=== PATIENT | male | born 1970 | race African-American/Black ===

== ENCOUNTER 2016-10-30 23:32 | Emergency (ER) | payer MEDICAID, OTHER ==
[~2016-10-30] VITALS: Ht 177.8 cm; Wt 94.0 kg
[~2016-10-30 23:32] MED LIST: ADVA250A INH; ALBU6.7H INH; LOSA25TA PO; XARE20TA PO; ZITHTAB PO
[2016-10-31 02:14] VITALS: BP 157/81; PULSE 110; RESP 18; TEMP 98.4; O2SAT 96
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
== END 2016-10-31 07:22 | disposition home or self-care (01) ==
LOC: NEPA 23:32
DX: F14.129 Cocaine abuse with intoxication, unspecified (principal)
CPT/HCPCS: 99284

== ENCOUNTER 2016-11-04 01:03 | Inpatient (IN) | payer MEDICAID, OTHER ==
[2016-11-04] VITALS (16 sets, daily range): BP systolic 102–147; BP diastolic 50–94; PULSE 77–110; RESP 14–18; TEMP 97.7–98.2; O2SAT 95–99
[~2016-11-04] VITALS: Ht 175.3 cm; Wt 91.9 kg
[~2016-11-04 01:03] MED LIST changes: -ZITHTAB PO
[2016-11-04] MEDS ORDERED: PRED20 PO (01:42)
[2016-11-04] MEDS ORDERED: LORazepam 2 MG/ML VIAL IV PUSH ONE (02:45)
[2016-11-04] MEDS ORDERED: SODIUM CHLOR 0.9% 1000 ML INJ 1,000 ML IV ONE ×3 (02:45→03:45)
[2016-11-04] MEDS ORDERED: MORPHINE SULFATE 4 MG/ML INJ IV PUSH ONE (02:45)
[2016-11-04] MEDS ORDERED: ASPIRIN 325 MG TAB PO ONE (02:45)
[2016-11-04] MEDS ORDERED: SODIUM CHLORIDE 0.9% FLUSH 5 ML FLUSH IVF PRN (02:45)
--- NOTE | 2016-11-04 02:45 | PD ---
HPI Chief Complaint: Chest Pain Time Seen by Provider: 02:14 Travel History International Travel<30 days: No Contact w/Intl Traveler<30days: No Traveled to known affect area: No History of Present Illness HPI 46-year-old male arrives to the ER complaining of retrosternal chest pain for about 2-3 hours. Started after he snorted cocaine. He denies a history of myocardial infarction. Evidently he's had a mini stroke in the past. He complains of right lower extremity paresthesias. He smokes tobacco about one pack per day. He denies alcoholism. He states he has been abusing cocaine for the past couple days while going through a divorce with his . He states it' s been stressful for him. He denies a family history of coronary artery disease that he is aware of. He denies similar prior episodes of chest pain. He suffers with hypertension, hx pulmonary embolism, asthma and cocaine addiction. He reports strict compliance with Xarelto. PFSH Past Medical History Hx Anticoagulant Therapy: Yes (XARELTO) Arthritis: No Asthma: Yes Autoimmune Disease: No Blood Disorders: No Anxiety: No Depression: No Heart Rhythm Problems: No Cancer: No Cardiovascular Problems: Yes (HTN) High Cholesterol: No Chemotherapy: No Chest Pain: No Congestive Heart Failure: No COPD: No Cerebrovascular Accident: No Diabetes: No Diminished Hearing: No Endocrine: No Gastrointestinal Disorders: No GERD: No Genitourinary: No Headaches: No Hepatitis: No Hiatal Hernia: No Hypertension: Yes Immune Disorder: No Implanted Vascular Access Dvce: No Musculoskeletal: No Neurologic: No Psychiatric: No Reproductive: No Respiratory: Yes (ASTHMA, PE) Immunizations Current: Yes Migraines: No Radiation Therapy: No Seizures: No Sickle Cell Disease: No Sleep Apnea: No Thyroid Disease: No Ulcer: No Tetanus Vaccination: > 5 Years PNEUMOCCOCAL Vaccine (Year): 2 Past Surgical History Abdominal Surgery: Yes (umbilical hernia repair/ appendectomy) Appendectomy: Yes Cardiac Surgery: No Ear Surgery: No Eye Surgery: No Genitourinary Surgery: No Oral Surgery: No Pacemaker: No Thoracic Surgery: Yes (LUNG biopsy) Other Surgery: Yes (TENDON REPAIR LEFT MIDDLE FINGER) Social History Alcohol Use: No Tobacco Use: Yes (1 pk) Substance Use: Yes (COCAINE) Allergies-Medications (Allergen,Severity, Reaction): Coded Allergies: Darvocet-N 100 (Verified Allergy, Severe, Lip swelling, 11/04/16) Percocet (Verified Allergy, Severe, Itching, 11/04/16) Reported Meds & Prescriptions Reported Meds & Active Scripts Active Reported Prednisone 20 Mg Tab 20 Mg PO DAILY Xarelto (Rivaroxaban) 20 Mg Tab 20 Mg PO DAILY Losartan (Losartan Potassium) 25 Mg Tab 25 Mg PO DAILY Proventil Hfa 6.7 GM Inh (Albuterol Sulfate) 90 Mcg/Act Aer 1 Puff INH Q6H PRN Advair Diskus Inh (Fluticasone-Salmeterol Inh) 250-50 Mcg/Blist Aer 1 Puff INH BID Rinse mouth after use. Review of Systems Except as stated in HPI: all other systems reviewed are Neg General / Constitutional: No: Fever, Chills Cardiovascular: Positive: Chest Pain or Discomfort Psychiatric: Positive: Mood Disorder, Substance Abuse Physical Exam Narrative GENERAL: 46-year-old male no acute distress SKIN: Warm and dry. HEAD: Atraumatic. Normocephalic. EYES: Pupils equal and round. No scleral icterus. No injection or drainage. ENT: No nasal bleeding or discharge. Mucous membranes pink and moist. NECK: Trachea midline. No JVD. CARDIOVASCULAR: Regular rate and rhythm. No murmur appreciated. tenderness palpation about the sternum RESPIRATORY: No accessory muscle use. Clear to auscultation. Breath sounds equal bilaterally. GASTROINTESTINAL: Abdomen soft, non-tender, nondistended. Hepatic and splenic margins not palpable. MUSCULOSKELETAL: No obvious deformities. No clubbing. No cyanosis. No edema. NEUROLOGICAL: Awake and alert. No obvious cranial nerve deficits. Motor grossly within normal limits. Normal speech. PSYCHIATRIC: Appropriate mood and affect; insight and judgment normal. Data Data Last Documented VS Vital Signs Date Time Temp Pulse Resp B/P Pulse Ox O2 Delivery O2 Flow Rate FiO2 11/04/16 04:30 86 18 127/76 96 Room Air 11/04/16 01:38 98.2 VS reviewed Orders Electrocardiogram (11/04/16 02:35) Basic Metabolic Panel (Bmp) (11/04/16 02:35) Ckmb (Isoenzyme) Profile (11/04/16 02:35) Complete Blood Count With Diff (11/04/16 02:35) Magnesium (Mg) (11/04/16 02:35) Prothrombin Time / Inr (Pt) (11/04/16 02:35) Act Partial Throm Time (Ptt) (11/04/16 02:35) Troponin I (11/04/16 02:35) Chest, Single Ap (11/04/16 02:35) Ecg Monitoring (11/04/16 02:35) Bilateral Bp Monitoring (11/04/16 02:35) Iv Access Insert/Monitor (11/04/16 02:35) Oximetry (11/04/16 02:35) Oxygen Administration (11/04/16 02:35) Aspirin (Aspirin) (11/04/16 02:45) Morphine Inj (Morphine Inj) (11/04/16 02:45) Sodium Chloride 0.9% Flush (Ns Flush) (11/04/16 02:45) Lorazepam Inj (Ativan Inj) (11/04/16 02:45) Nitroglycerin Sl (Nitrostat Sl) (11/04/16 02:45) Sodium Chlor 0.9% 1000 Ml Inj (Ns 1000 M (11/04/16 02:45) CKMB (11/04/16 02:45) CKMB% (11/04/16 02:45) Sodium Chlor 0.9% 1000 Ml Inj (Ns 1000 M (11/04/16 03:45) Sodium Chlor 0.9% 1000 Ml Inj (Ns 1000 M (11/04/16 03:45) Admit Order (Ed Use Only) (11/04/16 04:28) Labs Laboratory Tests Test 11/04/16 02:45 White Blood Count 8.0 TH/MM3 Red Blood Count 4.69 MIL/MM3 Hemoglobin 16.0 GM/DL Hematocrit 44.6 % Mean Corpuscular Volume 95.1 FL Mean Corpuscular Hemoglobin 34.0 PG Mean Corpuscular Hemoglobin 35.8 % Concent Red Cell Distribution Width 13.1 % Platelet Count 313 TH/MM3 Mean Platelet Volume 7.1 FL Neutrophils (%) (Auto) 54.4 % Lymphocytes (%) (Auto) 34.1 % Monocytes (%) (Auto) 7.9 % Eosinophils (%) (Auto) 2.6 % Basophils (%) (Auto) 1.0 % Neutrophils # (Auto) 4.4 TH/MM3 Lymphocytes # (Auto) 2.7 TH/MM3 Monocytes # (Auto) 0.6 TH/MM3 Eosinophils # (Auto) 0.2 TH/MM3 Basophils # (Auto) 0.1 TH/MM3 CBC Comment DIFF FINAL Differential Comment Prothrombin Time 11.1 SEC Prothromb Time International 1.0 RATIO Ratio Activated Partial 26.4 SEC Thromboplast Time Sodium Level 137 MEQ/L Potassium Level 3.4 MEQ/L Chloride Level 103 MEQ/L Carbon Dioxide Level 21.0 MEQ/L Anion Gap 13 MEQ/L Blood Urea Nitrogen 15 MG/DL Creatinine 1.42 MG/DL Estimat Glomerular Filtration 64 ML/MIN Rate Random Glucose 70 MG/DL Calcium Level 8.6 MG/DL Magnesium Level 2.3 MG/DL Total Creatine Kinase 3379 U/L Creatine Kinase MB 4.1 NG/ML Creatine Kinase MB % 0.1 % Troponin I 0.08 NG/ML MDM Medical Decision Making Medical Screen Exam Complete: Yes Emergency Medical Condition: Yes Medical Record Reviewed: Yes Differential Diagnosis NSTEMI, unstable angina, coronary vasospasm, PE, PTX, aortic dissection, pericarditis, myocarditis, endocarditis, PNA, esophageal disease, aneurysm, musculoskeletal etiologies, anxiety, cocaine/sympathomimetic abuse Narrative Course CBC & BMP Diagram 11/04/16 02:45 Total creatinine 3379 Troponin 0.08 EKG reveals sinus rhythm of 98 ST changes in the precordial leads do not appear to be ischemic in nature Last 24 hours Impressions Chest X-Ray 11/04/16 0235 Signed Impressions: Service Date/Time: October 00:55 - CONCLUSION: No acute disease. Tom Haider MD 3 L saline ordered. The patient has rhabdomyolysis. Mild troponin elevation likely secondary to elevated creatinine kinase. Case discussed with Dr. Romero for the hospitalist service. Patient has been sleeping throughout his ER stay. Diagnosis Primary Impression: Cocaine use Additional Impressions: Rhabdomyolysis Qualified Code: M62.82 - Non-traumatic rhabdomyolysis Chest pain Qualified Code: R07.9 - Chest pain, unspecified type Admitting Information Admitting Physician Requests: Admit Jairo Dunn MD Nov 04, 2016 02:45
[2016-11-04] MEDS: NITROGLYCERIN 0.4 MG SL 25 TABS/BTL SL SCH ×3 (02:55→03:06)
[2016-11-04 02:56] LABS: AUTOMATED NEUTROPHIL # 4.4 TH/MM3 (1.8-7.7); BASOPHIL # 0.1 TH/MM3 (0-0.2); EOSINOPHIL # 0.2 TH/MM3 (0-0.4); EOSINOPHIL % 2.6 % (0.0-4.0); HEMATOCRIT 44.6 % (39.0-51.0); HEMO FLAGS DIFF FINAL; LYMPH % 34.1 % (9.0-44.0); LYMPHOCYTE # 2.7 TH/MM3 (1.0-4.8); MEAN CELL VOLUME 95.1 FL (80.0-100.0); MEAN CORPUSCULAR HGB CONC 35.8 % (32.0-36.0); MONO % 7.9 % (0.0-8.0); NEUT % 54.4 % (16.0-70.0); PLATELET COUNT 313 TH/MM3 (150-450); RED BLOOD COUNT 4.69 MIL/MM3 (4.50-5.90); RED CELL DISTRIBUTION WIDTH 13.1 % (11.6-17.2)
[2016-11-04 03:05] LABS: APTT (PATIENT) 26.4 SEC (24.3-30.1); PROTHROMBIN TIME - PATIENT 11.1 SEC (9.8-11.6)
[2016-11-04 03:09] LABS: MAGNESIUM 2.3 MG/DL (1.5-2.5); POTASSIUM 3.4 MEQ/L (3.5-5.1)
--- NOTE | 2016-11-04 03:17 | RADRPT ---
EXAM DATE/TIME: 11/04/2016 00:55 [facility] COMPARISON: CHEST SINGLE AP, August 02, 2016, 12:28. INDICATIONS : Chest pain. MEDICAL HISTORY : None. SURGICAL HISTORY : None. ENCOUNTER: Initial ACUITY: 1 day PAIN SCORE: 110 LOCATION: Bilateral chest FINDINGS: A single view of the chest demonstrates the lungs to be symmetrically aerated without evidence of mas s, infiltrate or effusion. The cardiomediastinal contours are unremarkable. Osseous structures are intact. CONCLUSION: No acute disease. Tom Haider MD on November 04, 2016 at 3:15 Board Certified Radiologist. This report was verified electronically.
[2016-11-04 03:35] LABS: CKMB 4.1 NG/ML (0.5-3.6)
[2016-11-04 05:54] LABS: AMPHETAMINE, URINE NEG (NEG); BARBITURATES, URINE NEG (NEG); COCAINE, URINE POS (NEG)
[2016-11-04] MEDS ORDERED: ALBUTEROL SULFATE 90 MCG/ACT HFA 8 GM INHALER INH PRN (07:30)
--- NOTE | 2016-11-04 07:40 | HHI.HP ---
[facility] Judy De La Garza MD Admission Diagnosis Rhabdo, CP, Cocaine Abuse Diagnoses: (1) Chest pain Diagnosis: Principal (2) Cocaine use Diagnosis: Principal Chief Complaint: chest pain Travel History International Travel<30 Days: No Contact w/Intl Traveler <30 Da: No Traveled to Known Affected Are: No History of Present Illness patient is a 46 y/o male with history of hypertension, chronic smoker with history of cocaine abuse, presented to ER with chest pain. he says that the pain started last night after he snored cocaine. pain was midsternal with no radiation and no association with nausea, vomiting, dizziness or sob. he says that his chest is tender to touch. he denies any fever or cough. Review of Systems Constitutional: DENIES: Fever, Weight loss, Chills, Night Sweats Eyes: DENIES: Blurred vision, Diplopia, Vision loss, Double Vision Ears, nose, mouth, throat: DENIES: Tinnitus, Vertigo, Throat pain, Epistaxis Respiratory: DENIES: Apneas, Cough, Snoring, Wheezing, Hemoptysis, Sputum production, Shortness of breath Cardiovascular: COMPLAINS OF: Chest pain, DENIES: Palpitations, Syncope, Dyspnea on Exertion, PND, Lower Extremity Edema, Orthopnea, Claudication Gastrointestinal: DENIES: Abdominal pain, Black stools, Bloody stools, Constipation, Diarrhea, Nausea, Vomiting, Difficulty Swallowing, Anorexia Genitourinary: DENIES: Urinary frequency, Urgency, Hematuria, Dysuria Musculoskeletal: DENIES: Joint pain, Muscle aches, Stiffness, Joint Swelling Integumentary: DENIES: Rash Neurologic: DENIES: Abnormal gait, Headache, Localized weakness, Paresthesias, Seizures, Speech Problems, Tremor, Poor Balance Psychiatric: DENIES: Anxiety, Confusion, Mood changes, Depression, Hallucinations, Agitation, Suicidal Ideation, Homicidal Ideation, Delusions Past Family Social History Past Medical History PE hypertension asthma Past Surgical History appendectomy Reported Medications losartan prednisone xarelto albuterol advair Allergies: Coded Allergies: Darvocet-N 100 (Verified Allergy, Severe, Lip swelling, 11/04/16) Percocet (Verified Allergy, Severe, Itching, 11/04/16) Active Ordered Medications Current Medications Aspirin (Aspirin) 325 mg ONCE ONCE PO Last administered on 11/04/16 02:55; Start 11/04/16 at 02:45; Stop 11/04/16 at 02:46; Status DC Morphine Sulfate (Morphine Inj) 4 mg ONCE ONCE IV PUSH Last administered on 03:35; Start 11/04/16 at 02:45; Stop 11/04/16 at 02:46; Status DC IV Flush (NS Flush) 2 ml UNSCH PRN IVF FLUSH AFTER USING IV ACCESS; Start at 02:45 Lorazepam (Ativan Inj) 1 mg ONCE ONCE IV PUSH Last administered on 11/04/16 02 :59; Start 11/04/16 at 02:45; Stop 11/04/16 at 02:46; Status DC Nitroglycerin 0.4 mg 0.4 mg Q5M SL Last administered on 11/04/16 03:06; Start 11/04/16 at 02:45; Stop 11/04/16 at 02:56; Status DC Sodium Chloride 1,000 ml @ 999 mls/hr BOLUS ONCE IV Last administered on 03:00; Start 11/04/16 at 02:45; Stop 11/04/16 at 03:45; Status DC Sodium Chloride 1,000 ml @ 999 mls/hr BOLUS ONCE IV Last administered on 04:07; Start 11/04/16 at 03:45; Stop 11/04/16 at 04:45; Status DC Sodium Chloride (NS 1000 ml Inj) 1,000 ml @ 999 mls/hr BOLUS ONCE IV Last administered on 11/04/16 04:07; Start 11/04/16 at 03:45; Stop 11/04/16 at 04:45; Status DC Social History smokes half a pack a day- snores cocaine- doesn't drink. Physical Exam Vital Signs Vital Signs Date Time Temp Pulse Resp B/P Pulse Ox O2 Delivery O2 Flow Rate FiO2 11/04/16 06:48 85 18 146/77 97 Room Air 11/04/16 05:52 84 18 135/71 98 Room Air 11/04/16 04:30 86 18 127/76 96 Room Air 11/04/16 03:35 98 18 146/86 99 Room Air 11/04/16 03:06 106 18 126/70 95 Room Air 11/04/16 03:01 110 18 126/71 95 Room Air 11/04/16 02:56 93 18 147/89 96 Room Air 11/04/16 02:26 92 18 145/94 97 Room Air 11/04/16 01:43 94 16 97 11/04/16 01:38 98.2 94 16 127/82 96 Physical Exam GENERAL: This is a well-nourished, well-developed patient, in no apparent distress. SKIN: No rashes, ecchymoses or lesions. Cool and dry. HEAD: Atraumatic. Normocephalic. No temporal or scalp tenderness. EYES: Pupils equal round and reactive. Extraocular motions intact. No scleral icterus. No injection or drainage. ENT: Nose without bleeding, purulent drainage or septal hematoma. Throat without erythema, tonsillar hypertrophy or exudate. Uvula midline. Airway patent. NECK: Trachea midline. No JVD or lymphadenopathy. Supple, nontender, no meningeal signs. CARDIOVASCULAR: Regular rate and rhythm without murmurs, gallops, or rubs. chest is tender to touch RESPIRATORY: Clear to auscultation. Breath sounds equal bilaterally. No wheezes , rales, or rhonchi. GASTROINTESTINAL: Abdomen soft, non-tender, nondistended. No hepato-splenomegaly , or palpable masses. No guarding. MUSCULOSKELETAL: Extremities without clubbing, cyanosis, or edema. No joint tenderness, effusion, or edema noted. No calf tenderness. Negative Homans sign bilaterally. NEUROLOGICAL: Awake and alert. Cranial nerves II through XII intact. Motor and sensory grossly within normal limits. Five out of 5 muscle strength in all muscle groups. Normal speech. Laboratory Laboratory Tests Test 11/04/16 11/04/16 02:45 05:20 White Blood Count 8.0 Red Blood Count 4.69 Hemoglobin 16.0 Hematocrit 44.6 Mean Corpuscular Volume 95.1 Mean Corpuscular Hemoglobin 34.0 Mean Corpuscular Hemoglobin 35.8 Concent Red Cell Distribution Width 13.1 Platelet Count 313 Mean Platelet Volume 7.1 Neutrophils (%) (Auto) 54.4 Lymphocytes (%) (Auto) 34.1 Monocytes (%) (Auto) 7.9 Eosinophils (%) (Auto) 2.6 Basophils (%) (Auto) 1.0 Neutrophils # (Auto) 4.4 Lymphocytes # (Auto) 2.7 Monocytes # (Auto) 0.6 Eosinophils # (Auto) 0.2 Basophils # (Auto) 0.1 CBC Comment DIFF FINAL Differential Comment Prothrombin Time 11.1 Prothromb Time International 1.0 Ratio Activated Partial 26.4 Thromboplast Time Sodium Level 137 Potassium Level 3.4 Chloride Level 103 Carbon Dioxide Level 21.0 Anion Gap 13 Blood Urea Nitrogen 15 Creatinine 1.42 Estimat Glomerular Filtration 64 Rate Random Glucose 70 Calcium Level 8.6 Magnesium Level 2.3 Total Creatine Kinase 3379 Creatine Kinase MB 4.1 Creatine Kinase MB % 0.1 Troponin I 0.08 Urine Opiates Screen NEG Urine Barbiturates Screen NEG Urine Amphetamines Screen NEG Urine Benzodiazepines Screen NEG Urine Cocaine Screen POS Urine Cannabinoids Screen NEG Result Diagram: 11/04/1624411/04/16244 Imaging Last Impressions Chest X-Ray 11/04/16234 Signed Impressions: Service Date/Time: October 00:55 - CONCLUSION: No acute disease. Tom Haider MD EKG; sinus rhythm Assessment and Plan Assessment and Plan A/P - chest pain with cocaine abuse received a dose of aspirin in ER- will continue with aspirin and trend the enzymes -rhabdomyolysis due to cocaine continue with aggressive IV hydration- monitor CPK level and renal function -acute kidney injury; continue IV fluid- monitor renal function -hypertension; resume losartan- will monitor -history of PE and asthma; resume home meds -DVT prophylaxis; on xarelto Discussed Condition With the patient. Physician Certification 2 Midnight Certification Type: Admission for Inpatient Services Order for Inpatient Services The services are ordered in accordance with Medicare regulations or non- Medicare payer requirements, as applicable. In the case of services not specified as inpatient-only, they are appropriately provided as inpatient services in accordance with the 2-midnight benchmark. Estimated LOS (days): 2 days is the estimated time the patient will need to remain in the hospital, assuming treatment plan goals are met and no additional complications. Post-Hospital Plan: Home Problem Qualifiers (1) Chest pain: Qualified Code: R07.9 - Chest pain, unspecified type Kenna Aaron MD Nov 04, 2016 07:40
[2016-11-04] MEDS ORDERED: POTASSIUM CHLORIDE 20 MEQ CONTROLLED RELEASE TAB PO ONE (07:45)
--- NOTE | 2016-11-04 08:08 | EKG ---
Date Performed: 11/04/2016 Time Performed: 01:51:05 PTAGE: 46 years EKG: Sinus rhythm NONSPECIFIC T-WAVE ABNORMALITY BORDERLINE ECG NO SIGNIFICANT CHANGE FROM PRIOR ELECTROCARDIOGRAM. PREVIOUS TRACING : 06/07/2016 07.23 DOCTOR: Sampson Vogt Interpretating Date/Time 11/04/2016 08:07:42
[2016-11-04] MEDS: RIVAROXABAN 20 MG TAB PO SCH (08:56)
[2016-11-04] MEDS: LOSARTAN 25 MG TAB PO SCH (08:56)
[2016-11-04] MEDS: predniSONE 20 MG TAB PO SCH (08:56)
[2016-11-04] MEDS: SODIUM CHLOR 0.9% 1000 ML INJ 1,000 ML IV SCH ×3 (08:57→23:30)
[2016-11-04] MEDS: BUDESONIDE-FORMOTEROL 160/4.5 MCG INHALER INH SCH ×2 (10:08→22:01)
--- NOTE | 2016-11-04 13:40 | EKG ---
Date Performed: 11/04/2016 Time Performed: 09:17:23 PTAGE: 46 years EKG: Sinus rhythm ARM LEADS REVERSED ATYPICAL ECG COMPARED TO PRIOR ELECTROCARDIOGRAM, Limb leads are probably reverse d and I would repeat electrocardiogram. DOCTOR: Sampson Vogt Interpretating Date/Time 11/04/2016 13:38:38
[2016-11-04] MEDS: ACETAMINOPHEN/HYDROcodone 325 MG/5 MG TAB PO PRN ×2 (16:12→22:28)
[2016-11-05] VITALS (8 sets, daily range): BP systolic 113–128; BP diastolic 60–76; PULSE 68–81; RESP 16–20; TEMP 97.3–98; O2SAT 94–99
[2016-11-05] MEDS: ACETAMINOPHEN/HYDROcodone 325 MG/5 MG TAB PO PRN ×3 (06:58→20:01)
[2016-11-05 07:05] LABS: BICARBONATE 25.2 MEQ/L (21.0-32.0); POTASSIUM 3.6 MEQ/L (3.5-5.1)
[2016-11-05 07:37] LABS: CKMB 2.4 NG/ML (0.5-3.6)
[2016-11-05] MEDS: LOSARTAN 25 MG TAB PO SCH (09:25)
[2016-11-05] MEDS: predniSONE 20 MG TAB PO SCH (09:25)
[2016-11-05] MEDS: RIVAROXABAN 20 MG TAB PO SCH (09:25)
[2016-11-05] MEDS: BUDESONIDE-FORMOTEROL 160/4.5 MCG INHALER INH SCH ×2 (09:25→20:01)
[2016-11-05] MEDS: ASPIRIN EC 81 MG TABEC PO SCH (09:25)
[2016-11-05] MEDS ORDERED: MAGNESIUM HYDROXIDE SUSP 30 ML CUP PO PRN (10:15)
[2016-11-05] MEDS ORDERED: DOCUSATE SODIUM 50 MG/SENNA 8.6 MG TAB PO PRN (10:15)
[2016-11-05] MEDS ORDERED: ACETAMINOPHEN 325 MG TAB PO PRN (10:15)
[2016-11-05] MEDS ORDERED: ONDANSETRON HCL 4 MG/2 ML VIAL IV PRN (10:15)
[2016-11-05] MEDS ORDERED: DOCUSATE SODIUM 100 MG CAP PO PRN (11:00)
[2016-11-05] MEDS ORDERED: ALUMINUM/MAGNESIUM/SIMETH 30 ML CUP PO PRN (12:00)
[2016-11-05] MEDS: 1/2 NS + KCL 20 MEQ INJ 1,000 ML IV SCH ×2 (12:13→20:02)
[2016-11-05] MEDS ORDERED: CALCIUM CARBONATE 500 MG CHEWABLE TAB CHEW PRN (13:00)
--- NOTE | 2016-11-05 17:45 | HHI.PR ---
Subjective Remarks Follow-up rhabdomyolysis. Complains of intermittent pleuritic sharp sternal pain 6/10 lasting for 15-20 minutes when he moves , improves when he raises BUE. No radiation of pain, shortness of breath, nausea, palpitations and diaphoresis. Counseled regarding cocaine abuse. No recent URI. Discussed with RN Objective Vitals Vital Signs Date Time Temp Pulse Resp B/P Pulse Ox O2 Delivery O2 Flow Rate FiO2 11/05/16 09:50 81 11/05/16 09:50 Room Air 11/05/16 08:00 97.8 75 20 115/65 95 11/05/16 04:00 97.5 69 18 122/72 98 11/05/16 00:00 97.3 68 18 113/60 94 11/04/16 21:00 Room Air 11/04/16 20:12 86 11/04/16 20:00 97.7 77 18 109/55 96 I/O 11/04/16 11/04/16 11/04/16 11/05/16 11/05/16 11/05/16 07:00 15:00 23:00 07:00 15:00 23:00 Intake Total 480 ml 360 ml Balance 480 ml 360 ml Intake Oral 480 ml 360 ml # Voids 2 2 Result Diagram: 11/04/16 0245 11/05/16 0614 Imaging Last Impressions Chest X-Ray 11/04/16 0235 Signed Impressions: Service Date/Time: October 00:55 - CONCLUSION: No acute disease. Tom Haider MD Objective Remarks GENERAL: This is a well-nourished, well-developed patient, in no apparent distress. SKIN: No rashes, ecchymoses or lesions. Cool and dry. HEAD: Atraumatic. Normocephalic. No temporal or scalp tenderness. EYES: Pupils equal round and reactive. Extraocular motions intact. No scleral icterus. No injection or drainage. ENT: Nose without bleeding, purulent drainage or septal hematoma. Throat without erythema, tonsillar hypertrophy or exudate. Uvula midline. Airway patent. NECK: Trachea midline. No JVD or lymphadenopathy. Supple, nontender, no meningeal signs. CARDIOVASCULAR: Regular rate and rhythm without murmurs, gallops, or rubs. chest is tender to touch RESPIRATORY: Clear to auscultation. Breath sounds equal bilaterally. No wheezes , rales, or rhonchi. GASTROINTESTINAL: Abdomen soft, non-tender, nondistended. No guarding. MUSCULOSKELETAL: Extremities without clubbing, cyanosis, or edema. No joint tenderness, effusion, or edema noted. No calf tenderness. Negative Homans sign bilaterally. NEUROLOGICAL: Awake and alert. Cranial nerves II through XII intact. Motor and sensory grossly within normal limits. Five out of 5 muscle strength in all muscle groups. Normal speech. Procedures none A/P Problem List: (1) Chest pain ICD Code: R07.9 Status: Acute (2) Cocaine use ICD Code: F14.10 Status: Acute Assessment and Plan - chest pain with cocaine abuse. Pain could also be musculoskeletal received a dose of aspirin in ER- will continue with aspirin and trend the enzymes. Mild troponin elevation tender to Abuse. Negative nuclear study in August 2015 -rhabdomyolysis due to cocaine continue with aggressive IV hydration- monitor CPK level and renal function -acute kidney injury; continue IV fluid- monitor renal function. Improving -Mild AST elevation secondary to rhabdomyolysis. -hypertension; resume losartan- will monitor -history of PE and asthma; resume home meds -DVT prophylaxis; on xarelto Discharge Planning Possible discharge in the morning if CPK levels on downward trend Problem Qualifiers (1) Chest pain: Qualified Code: R07.9 - Chest pain, unspecified type John Burrell MD Nov 05, 2016 17:45
[2016-11-05] MEDS ORDERED: HYDR-3516 PO (17:47)
--- NOTE | 2016-11-05 17:48 | HHI.DCPOC ---
Discharge Care Plan Diagnosis: (1) Cocaine use (2) Rhabdomyolysis Your Health Problems Are: Difficulty with ADL Exercise Tolerance Goals to Promote Your Health * To prevent worsening of your condition and complications * To maintain your health at the optimal level Directions to Meet Your Goals Take your medications as prescribed Follow your dietary instruction Follow activity as directed Keep your appointments as scheduled Take your immunizations and boosters as scheduled If your symptoms worsen call your PCP, if no PCP go to Urgent Care Center or Emergency Room Smoking is Dangerous to Your Health. Avoid second hand smoke Call the 24-hour hour crisis hotline for domestic abuse at John Burrell MD Nov 05, 2016 17:48
[2016-11-06] VITALS (7 sets, daily range): BP systolic 109–150; BP diastolic 55–89; PULSE 67–93; RESP 16–20; TEMP 97.3–97.6; O2SAT 94–99
[2016-11-06 08:16] LABS: MAGNESIUM 2.1 MG/DL (1.5-2.5); POTASSIUM 3.8 MEQ/L (3.5-5.1)
[2016-11-06 08:31] LABS: CKMB 1.3 NG/ML (0.5-3.6)
[2016-11-06] MEDS: ASPIRIN EC 81 MG TABEC PO SCH (09:04)
[2016-11-06] MEDS: LOSARTAN 25 MG TAB PO SCH (09:04)
[2016-11-06] MEDS: RIVAROXABAN 20 MG TAB PO SCH (09:04)
[2016-11-06] MEDS: predniSONE 20 MG TAB PO SCH (09:04)
--- NOTE | 2016-11-06 10:37 | HHI.PR ---
Subjective Remarks Follow-up rhabdomyolysis. He has generalized soreness otherwise doing okay. Also has mild shortness of breath secondary to asthma. Discussed with RN Objective Vitals Vital Signs Date Time Temp Pulse Resp B/P Pulse Ox O2 Delivery O2 Flow Rate FiO2 11/06/16 08:00 97.4 67 20 122/77 96 11/06/16 04:00 97.6 93 20 118/66 96 11/06/16 00:11 94 11/06/16 00:00 97.3 85 16 109/55 96 11/05/16 20:04 81 11/05/16 20:00 98.0 76 16 121/73 97 11/05/16 19:45 Room Air 11/05/16 16:00 97.5 79 20 123/69 99 11/05/16 12:00 97.6 75 20 128/76 95 I/O 11/05/16 11/05/16 11/05/16 11/06/16 11/06/16 11/06/16 07:00 15:00 23:00 07:00 15:00 23:00 Intake Total 360 ml 720 ml 240 ml Balance 360 ml 720 ml 240 ml Intake Oral 360 ml 720 ml 240 ml # Voids 2 4 6 # Bowel Movements 1 1 Result Diagram: 11/04/16 0245 11/06/16 0705 Objective Remarks GENERAL: This is a well-nourished, well-developed patient, in no apparent distress. SKIN: No rashes, ecchymoses or lesions. Cool and dry. HEAD: Atraumatic. Normocephalic. No temporal or scalp tenderness. EYES: Pupils equal round and reactive. Extraocular motions intact. No scleral icterus. No injection or drainage. ENT: Nose without bleeding, purulent drainage or septal hematoma. Throat without erythema, tonsillar hypertrophy or exudate. Uvula midline. Airway patent. NECK: Trachea midline. No JVD or lymphadenopathy. Supple, nontender, no meningeal signs. CARDIOVASCULAR: Regular rate and rhythm without murmurs, gallops, or rubs. chest is tender to touch RESPIRATORY: Clear to auscultation. Breath sounds equal bilaterally. No rales, or rhonchi. Mild expiratory wheezes GASTROINTESTINAL: Abdomen soft, non-tender, nondistended. No guarding. MUSCULOSKELETAL: Extremities without clubbing, cyanosis, or edema. No joint tenderness, effusion, or edema noted. No calf tenderness. Negative Homans sign bilaterally. NEUROLOGICAL: Awake and alert. Cranial nerves II through XII intact. Motor and sensory grossly within normal limits. Five out of 5 muscle strength in all muscle groups. Normal speech. Procedures none A/P Problem List: (1) Chest pain ICD Code: R07.9 Status: Acute (2) Cocaine use ICD Code: F14.10 Status: Acute Assessment and Plan - chest pain with cocaine abuse. Pain could also be musculoskeletal received a dose of aspirin in ER- will continue with aspirin and trend the enzymes. Mild troponin elevation secondary to cocaine Abuse. Negative nuclear study in August 2015 -rhabdomyolysis due to cocaine continue with aggressive IV hydration- monitor CPK level and renal function. Improving -acute kidney injury; continue IV fluid- monitor renal function. Improving -Mild AST elevation secondary to rhabdomyolysis. -hypertension; resume losartan- will monitor -history of PE and asthma; resume home meds he is on chronic prednisone therapy. Patient with mild exacerbation continue nebulization and steroids -DVT prophylaxis; on xarelto history of PE Discharge Planning She will be discharged later today if his wheezing improves Problem Qualifiers (1) Chest pain: Qualified Code: R07.9 - Chest pain, unspecified type John Burrell MD Nov 06, 2016 10:37
--- NOTE | 2016-11-06 10:38 | HHI.DS ---
Discharge Summary Admission Date Nov 04, 2016 at 04:30 Discharge Date: Nov 06, 2016 Admitting Diagnosis Rhabdo, CP, Cocaine Abuse (1) Chest pain ICD Code: R07.9 Diagnosis: Principal (2) Cocaine use ICD Code: F14.10 Diagnosis: Principal Procedures none Brief History - From Admission patient is a 46 y/o male with history of hypertension, chronic smoker with history of cocaine abuse, presented to ER with chest pain. he says that the pain started last night after he snored cocaine. pain was midsternal with no radiation and no association with nausea, vomiting, dizziness or sob. he says that his chest is tender to touch. he denies any fever or cough. CBC/BMP: 11/04/16 0245 11/06/16 0705 Significant Findings Laboratory Tests Test 11/04/16 11/04/16 11/04/16 11/04/16 02:45 05:20 10:32 14:24 Potassium Level 3.4 MEQ/L (3.5-5.1) Creatinine 1.42 MG/DL (0.60-1.30) Estimat Glomerular Filtration 64 ML/MIN (>89) Rate Random Glucose 70 MG/DL (74-106) Total Creatine Kinase 3379 U/L (39-308) Creatine Kinase MB 4.1 NG/ML (0.5-3.6) Troponin I 0.08 NG/ML 0.08 NG/ML 0.09 NG/ML (0.02-0.05) (0.02-0.05) (0.02-0.05) Urine Cocaine Screen POS (NEG) Test 11/05/16 11/06/16 06:14 07:05 Chloride Level 110 MEQ/L 108 MEQ/L (98-107) (98-107) Estimat Glomerular Filtration 83 ML/MIN (>89) 74 ML/MIN (>89) Rate Calcium Level 8.4 MG/DL (8.5-10.1) Total Creatine Kinase 1028 U/L 451 U/L (39-308) (39-308) Random Glucose 72 MG/DL (74-106) Imaging Last Impressions Chest X-Ray 11/04/16 0235 Signed Impressions: Service Date/Time: October 00:55 - CONCLUSION: No acute disease. Tom Haider MD PE at Discharge GENERAL: This is a well-nourished, well-developed patient, in no apparent distress. SKIN: No rashes, ecchymoses or lesions. Cool and dry. HEAD: Atraumatic. Normocephalic. No temporal or scalp tenderness. EYES: Pupils equal round and reactive. Extraocular motions intact. No scleral icterus. No injection or drainage. ENT: Nose without bleeding, purulent drainage or septal hematoma. Throat without erythema, tonsillar hypertrophy or exudate. Uvula midline. Airway patent. NECK: Trachea midline. No JVD or lymphadenopathy. Supple, nontender, no meningeal signs. CARDIOVASCULAR: Regular rate and rhythm without murmurs, gallops, or rubs. chest is tender to touch RESPIRATORY: Clear to auscultation. Breath sounds equal bilaterally. No rales, or rhonchi. Mild expiratory wheezes GASTROINTESTINAL: Abdomen soft, non-tender, nondistended. No guarding. MUSCULOSKELETAL: Extremities without clubbing, cyanosis, or edema. No joint tenderness, effusion, or edema noted. No calf tenderness. Negative Homans sign bilaterally. NEUROLOGICAL: Awake and alert. Cranial nerves II through XII intact. Motor and sensory grossly within normal limits. Five out of 5 muscle strength in all muscle groups. Normal speech. Hospital Course - chest pain with cocaine abuse. Pain could also be musculoskeletal received a dose of aspirin in ER- will continue with aspirin and trend the enzymes. Mild troponin elevation secondary to cocaine Abuse. Negative nuclear study in August 2015. Will not start nsaid patient already on Xarelto. Continue Lortab counselled regarding narcotics -rhabdomyolysis due to cocaine continue with aggressive IV hydration- monitor CPK level and renal function. Improving -acute kidney injury; continue IV fluid- monitor renal function. Improving -Mild AST elevation secondary to rhabdomyolysis. -hypertension; resume losartan- will monitor -history of PE and asthma; resume home meds he is on chronic prednisone therapy. Patient with mild exacerbation continue nebulization and steroids -DVT prophylaxis; on xarelto history of PE Pt Condition on Discharge: Stable Discharge Disposition: Discharge Home Discharge Time: <= 30 minutes Discharge Instructions DIET: Follow Instructions for: Heart Healthy Diet Activities you can perform: Regular-No Restrictions Activities to Avoid: Driving Follow up Referrals: PCP Follow-up - 1 Week New Medications: Hydrocodone-Acetaminophen (Hydrocodone-Acetaminophen) 5-325 mg Tab 1 TAB PO Q6H PRN PAIN >5 #20 TAB Continued Medications: Albuterol 6.7 GM Inh (Proventil Hfa 6.7 GM Inh) 90 Mcg/Act Aer 1 PUFF INH Q6H PRN SHORTNESS OF BREATH #1 Ref 0 INHALER Fluticasone-Salmeterol Inh (Advair Diskus Inh) 250-50 Mcg/Blist Aer 1 PUFF INH BID Rinse mouth after use. #1 Ref 0 INHALER Losartan (Losartan) 25 Mg Tab 25 MG PO DAILY Blood Pressure Management #30 Ref 0 TAB Prednisone (Prednisone) 20 Mg Tab 20 MG PO DAILY Ref 0 TAB Rivaroxaban (Xarelto) 20 Mg Tab 20 MG PO DAILY Blood Clot Prevention Ref 0 TAB John Burrell MD Nov 06, 2016 10:38
[2016-11-06] MEDS: ACETAMINOPHEN/HYDROcodone 325 MG/5 MG TAB PO PRN (15:04)
== END 2016-11-06 19:10 | disposition home or self-care (01) | DRG 313 ==
LOC: NEPE 01:03 → NEDA 04:30 → NEDH 09:46 → NEDA 12:28 → N04B 15:04
PROVIDERS: ADMIT Internal Medicine; ATTEND Internal Medicine
DX: R07.9 Chest pain, unspecified (principal); N17.9 Acute kidney failure, unspecified; M62.82 Rhabdomyolysis; F14.10 Cocaine abuse, uncomplicated; I10 Essential (primary) hypertension; J45.909 Unspecified asthma, uncomplicated; F17.210 Nicotine dependence, cigarettes, uncomplicated; Z79.52 Long term (current) use of systemic steroids; Z86.711 Personal history of pulmonary embolism; Z86.73 Personal history of transient ischemic attack (TIA), and cerebral infarction without residual deficits
CPT/HCPCS: 71010; 76937; 80048; 80307; 82550; 82552; 83735; 84484; 85025; 85610; 85652; 85730; 93005; 96361; 96374; 96375; J2060; J2270; J7030; J7512

== ENCOUNTER 2016-11-21 19:38 | Emergency (ER) | payer MEDICAID ==
[~2016-11-21] VITALS: Ht 175.3 cm; Wt 95.6 kg
[~2016-11-21 19:38] MED LIST changes: +HYDR-3516 PO; +PRED20 PO
[2016-11-21 19:43] VITALS: BP 158/104; PULSE 106; RESP 16; TEMP 98.2; O2SAT 97
--- NOTE | 2016-11-21 19:52 | PD ---
HPI Chief Complaint: Syncope/Near-Syncope Time Seen by Provider: 19:52 Travel History International Travel<30 days: No Contact w/Intl Traveler<30days: No Traveled to known affect area: No History of Present Illness HPI 38-year-old male with PMH of cocaine abuse ON XARELTO presents to the ED via EMS for evaluation after syncopal episode and fall. Patient states he was snorting cocaine just before the episode. He endorses loss of consciousness. On presentation he complains of 7/10 posterior headache. Endorses nausea and a single episode of vomiting. Denies vision changes, dizziness, pain with ocular movements, neck pain, chest pain, palpitations, abdominal pain, numbness, tingling, weakness, limitations range of motion of the lower extremities. Patient states he's been out of Xarelto for the last 3 days. Patient states that he used "a 1/4 ounce" of cocaine today. He denies SI, states that he is trying "to forget about my divorce." PFSH Past Medical History Hx Anticoagulant Therapy: Yes (XARELTO) Arthritis: No Asthma: Yes Autoimmune Disease: No Blood Disorders: No Anxiety: No Depression: No Heart Rhythm Problems: No Cancer: No Cardiovascular Problems: Yes ("HOLE IN HEART") High Cholesterol: No Chemotherapy: No Chest Pain: No Congestive Heart Failure: No COPD: No Cerebrovascular Accident: No Diabetes: No Diminished Hearing: No Endocrine: No Gastrointestinal Disorders: No GERD: No Genitourinary: No Headaches: No Hepatitis: No Hiatal Hernia: No Hypertension: Yes Immune Disorder: No Implanted Vascular Access Dvce: No Musculoskeletal: No Neurologic: No Psychiatric: No Reproductive: No Respiratory: Yes (ASTHMA ) Immunizations Current: Yes Migraines: No Radiation Therapy: No Seizures: No Sickle Cell Disease: No Sleep Apnea: No Thyroid Disease: No Ulcer: No PNEUMOCCOCAL Vaccine (Year): 2 Past Surgical History Abdominal Surgery: Yes (umbilical hernia repair/ appendectomy) Appendectomy: Yes Cardiac Surgery: No Ear Surgery: No Eye Surgery: No Genitourinary Surgery: No Oral Surgery: No Pacemaker: No Thoracic Surgery: Yes (LUNG biopsy) Other Surgery: Yes (TENDON REPAIR LEFT MIDDLE FINGER) Social History Alcohol Use: No (RARELY) Tobacco Use: Yes (1 pk) Substance Use: Yes ( COCAINE ) Allergies-Medications (Allergen,Severity, Reaction): Coded Allergies: Darvocet-N 100 (Verified Allergy, Severe, Lip swelling, 11/21/16) Percocet (Verified Allergy, Severe, Itching, 11/21/16) Reported Meds & Prescriptions Reported Meds & Active Scripts Active Xarelto (Rivaroxaban) 20 Mg Tab 20 Mg PO DAILY Reported Prednisone 20 Mg Tab 20 Mg PO DAILY Xarelto (Rivaroxaban) 20 Mg Tab 20 Mg PO DAILY Losartan (Losartan Potassium) 25 Mg Tab 25 Mg PO DAILY Proventil Hfa 6.7 GM Inh (Albuterol Sulfate) 90 Mcg/Act Aer 1 Puff INH Q6H PRN Advair Diskus Inh (Fluticasone-Salmeterol Inh) 250-50 Mcg/Blist Aer 1 Puff INH BID Rinse mouth after use. Review of Systems Except as stated in HPI: all other systems reviewed are Neg Physical Exam Narrative GENERAL: Well-nourished, well-developed black male, alert, oriented, in no acute distress. SKIN: Warm and dry. HEAD: Normocephalic. Atraumatic. No tenderness to palpation of the skull. No bony step-offs. EYES: No scleral icterus. No injection or drainage. PERRLA. EOMI. NECK: Supple, trachea midline. No JVD or lymphadenopathy. No midline tenderness to palpation. No limitations to range of motion. CARDIOVASCULAR: Regular rate and rhythm without murmurs, gallops, or rubs. 2+ DP and radial pulses bilaterally. RESPIRATORY: Breath sounds clear and equal bilaterally. No accessory muscle use. GASTROINTESTINAL: Abdomen soft, non-tender, nondistended. No MUSCULOSKELETAL: No cyanosis, or edema. BACK: Nontender without obvious deformity. No CVA tenderness. Data Data Last Documented VS Vital Signs Date Time Temp Pulse Resp B/P Pulse Ox O2 Delivery O2 Flow Rate FiO2 11/21/16 22:41 98.1 87 18 116/77 100 11/21/16 21:40 Room Air Orders Electrocardiogram (11/21/16 19:50) Complete Blood Count With Diff (11/21/16 19:50) Comprehensive Metabolic Panel (11/21/16 19:50) Creatine Kinase (Cpk) (11/21/16 19:50) Drug Screen, Random Urine (11/21/16 19:50) Troponin I (11/21/16 19:50) Urinalysis - C+S If Indicated (11/21/16 19:50) Ct Brain W/O Iv Contrast(Rout) (11/21/16 19:50) Chest, Single Ap (11/21/16 19:50) Ecg Monitoring (11/21/16 19:50) Iv Access Insert/Monitor (11/21/16 19:50) Oximetry (11/21/16 19:50) Sodium Chloride 0.9% Flush (Ns Flush) (11/21/16 20:00) Sodium Chlor 0.9% 1000 Ml Inj (Ns 1000 M (11/21/16 20:15) Ketorolac Inj (Toradol Inj) (11/21/16 20:30) Prochlorperazine Inj (Compazine Inj) (11/21/16 21:30) Diphenhydramine Inj (Benadryl Inj) (11/21/16 21:30) Labs Laboratory Tests Test 11/21/16 11/21/16 20:06 21:42 White Blood Count 10.7 TH/MM3 Red Blood Count 4.77 MIL/MM3 Hemoglobin 15.8 GM/DL Hematocrit 45.7 % Mean Corpuscular Volume 95.7 FL Mean Corpuscular Hemoglobin 33.1 PG Mean Corpuscular Hemoglobin 34.6 % Concent Red Cell Distribution Width 13.5 % Platelet Count 422 TH/MM3 Mean Platelet Volume 7.6 FL Neutrophils (%) (Auto) 61.8 % Lymphocytes (%) (Auto) 26.4 % Monocytes (%) (Auto) 11.4 % Eosinophils (%) (Auto) 0.1 % Basophils (%) (Auto) 0.3 % Neutrophils # (Auto) 6.6 TH/MM3 Lymphocytes # (Auto) 2.8 TH/MM3 Monocytes # (Auto) 1.2 TH/MM3 Eosinophils # (Auto) 0.0 TH/MM3 Basophils # (Auto) 0.0 TH/MM3 CBC Comment DIFF FINAL Differential Comment Sodium Level 136 MEQ/L Potassium Level 3.2 MEQ/L Chloride Level 99 MEQ/L Carbon Dioxide Level 25.4 MEQ/L Anion Gap 12 MEQ/L Blood Urea Nitrogen 19 MG/DL Creatinine 1.34 MG/DL Estimat Glomerular Filtration 69 ML/MIN Rate Random Glucose 110 MG/DL Calcium Level 8.8 MG/DL Total Bilirubin 0.9 MG/DL Aspartate Amino Transf 21 U/L (AST/SGOT) Alanine Aminotransferase 47 U/L (ALT/SGPT) Alkaline Phosphatase 105 U/L Total Creatine Kinase 305 U/L Troponin I 0.11 NG/ML Total Protein 7.4 GM/DL Albumin 3.8 GM/DL Urine Color YELLOW Urine Turbidity CLEAR Urine pH 5.5 Urine Specific [place] 1.033 Urine Protein TRACE mg/dL Urine Glucose (UA) NEG mg/dL Urine Ketones 10 mg/dL Urine Occult Blood NEG Urine Nitrite NEG Urine Bilirubin NEG Urine Urobilinogen LESS THAN 2.0 MG/DL Urine Leukocyte Esterase NEG Urine RBC 1 /hpf Urine WBC 2 /hpf Urine Mucus FEW /lpf Microscopic Urinalysis Comment CATH-CULT NOT IND MDM Medical Decision Making Medical Screen Exam Complete: Yes Emergency Medical Condition: Yes Differential Diagnosis Syncope versus ACS versus cephalgia versus skull fracture versus ICH versus electrolyte abnormality versus rhabdomyolysis versus other Narrative Course 38-year-old male with PMH of cocaine abuse presents to the ED via EMS for evaluation after syncopal episode and fall. Patient states he was snorting cocaine just before the episode. He endorses LOC, complains of 7/10 posterior headache. Endorses nausea and a single episode of vomiting. Denies vision changes, dizziness, pain with ocular movements, neck pain, chest pain, palpitations, abdominal pain, numbness, tingling, weakness, limitations range of motion of the lower extremities. Vitals reviewed. Physical exam reveals an alert, oriented black male in no acute distress. No tenderness to palpation of the skull bones. PERRLA. EOMI. No focal neural deficits. Chest clear to auscultation bilaterally. Abdomen soft, nontender. Equal pulses in the distal extremities. The need for radiological imaging of the cervical spine was ruled out by a [place] CT rules. IV was established. Patient was placed on continuous monitoring. He is administered a liter of IV fluids and 30 mg Toradol IV. EKG rate 94, sinus rhythm with occasional PVCs. AR interval 129, QRS 94, QTC 423. No ST elevations or depressions. Reviewed by Dr. Clifford. Chest x-ray: No acute disease. CBC: WBC 10.7, hemoglobin 15.8. CMP: BUN 19, creatinine 1.34. Potassium 3.2. Cardiac enzymes: Troponin 0.11. UA: No culture indicated Review the patient's record reveals troponins 0.6 through 1.0, last report . I discussed the patient with Dr. Clifford who feels that the patient is safe for discharge. Recheck of the patient reveals improvement of his pain symptoms. Patient was counseled to seek outpatient treatments for his cocaine problem, he was given a refill of Xarelto, instructed to follow up with his primary care provider. He indicated understanding of instructions. He is amenable to plan of care. He is stable and discharged home. Diagnosis Primary Impression: Syncope Qualified Code: R55 - Syncope, unspecified syncope type Additional Impressions: Cocaine use Head ache Qualified Code: G44.319 - Acute post-traumatic headache, not intractable Referrals: Primary Care Physician [facility] Patient Instructions: Acute Headache (ED), Cocaine Abuse (ED), General Instructions, Syncope (ED) Additional Instructions: STOP USING COCAINE. Seek outpatient treatment for your chronic cocaine use. Continue Xarelto as previously prescribed. Follow-up with your primary care provider this week. Return to the ED for any urgent or emergent medical condition. Med/Other Pt SpecificInfo: Prescription(s) given Scripts Rivaroxaban (Xarelto)20 Mg Tab20 Mg PO DAILY #30 TAB Ref 0 Prov:Timur Clifford MD 11/21/16 Disposition: 01 DISCHARGE HOME Condition: Stable Tammie Harrison Nov 21, 2016 19:52 Condition: Tammie Gil Nov 21, 2016 19:52
[2016-11-21] MEDS ORDERED: SODIUM CHLORIDE 0.9% FLUSH 5 ML FLUSH IVF PRN (20:00)
[2016-11-21] MEDS ORDERED: SODIUM CHLOR 0.9% 1000 ML INJ 1,000 ML IV ONE (20:15)
--- NOTE | 2016-11-21 20:22 | RADRPT ---
EXAM DATE/TIME: 11/21/2016 20:10 [facility] COMPARISON: CT BRAIN W/O CONTRAST, June 04, 2016, 17:09. INDICATIONS : Syncopal episode with fall today. RADIATION DOSE: 46.06 CTDIvol (mGy) MEDICAL HISTORY : Hypertension. SURGICAL HISTORY : Appendectomy. ENCOUNTER: Initial ACUITY: 1 day PAIN SCALE: 5/10 LOCATION: Bilateral occipital head TECHNIQUE: Multiple contiguous axial images were obtained of the head. Using automated exposure control and adj ustment of the mA and/or kV according to patient size, radiation dose was kept as low as reasonably a chievable to obtain optimal diagnostic quality images. FINDINGS: CEREBRUM: The ventricles are normal for age. No evidence of midline shift, mass lesion, hemorrhage or acute in farction. No extra-axial fluid collections are seen. POSTERIOR FOSSA: The cerebellum and brainstem are intact. The 4th ventricle is midline. The cerebellopontine angle i s unremarkable. EXTRACRANIAL: The visualized portion of the orbits is intact. SKULL: The calvaria is intact. No evidence of skull fracture. CONCLUSION: Normal examination. Km Perdue MD on November 21, 2016 at 20:19 Board Certified Radiologist. This report was verified electronically.
[2016-11-21] MEDS ORDERED: KETOROLAC TROMETHAMINE 30 MG/ML (IVP) VIAL IV PUSH ONE (20:30)
[2016-11-21 20:33] LABS: AUTOMATED NEUTROPHIL # 6.6 TH/MM3 (1.8-7.7); BASOPHIL % 0.3 % (0.0-2.0); EOSINOPHIL % 0.1 % (0.0-4.0); HEMATOCRIT 45.7 % (39.0-51.0); HEMO FLAGS DIFF FINAL; LYMPH % 26.4 % (9.0-44.0); LYMPHOCYTE # 2.8 TH/MM3 (1.0-4.8); MEAN CELL VOLUME 95.7 FL (80.0-100.0); MEAN CORPUSCULAR HEMOGLOBIN 33.1 PG (27.0-34.0); MEAN CORPUSCULAR HGB CONC 34.6 % (32.0-36.0); MONO % 11.4 % (0.0-8.0); NEUT % 61.8 % (16.0-70.0); PLATELET COUNT 422 TH/MM3 (150-450); RED BLOOD COUNT 4.77 MIL/MM3 (4.50-5.90); RED CELL DISTRIBUTION WIDTH 13.5 % (11.6-17.2); WHITE BLOOD COUNT 10.7 TH/MM3 (4.0-11.0)
--- NOTE | 2016-11-21 20:39 | RADRPT ---
EXAM DATE/TIME: 11/21/2016 20:33 [facility] COMPARISON: CHEST SINGLE AP, November 04, 2016, 0:55. INDICATIONS : Shortness of breath. MEDICAL HISTORY : Hypertension. SURGICAL HISTORY : Appendectomy. ENCOUNTER: Initial ACUITY: 3 weeks PAIN SCORE: 0/10 LOCATION: Bilateral chest FINDINGS: A single view of the chest demonstrates the lungs to be symmetrically aerated without evidence of mas s, infiltrate or effusion. The cardiomediastinal contours are unremarkable. Osseous structures are intact. CONCLUSION: No acute disease. Km Perdue MD on November 21, 2016 at 20:37 Board Certified Radiologist. This report was verified electronically.
[2016-11-21 20:48] LABS: ANION GAP 12 MEQ/L (5-15); AST (GOT) 21 U/L (15-37); BICARBONATE 25.4 MEQ/L (21.0-32.0); BLOOD UREA NITROGEN 19 MG/DL (7-18); CHLORIDE 99 MEQ/L (98-107); GLOMERULAR FILTRATION RATE 69 ML/MIN (>89); POTASSIUM 3.2 MEQ/L (3.5-5.1); SODIUM (NA) 136 MEQ/L (136-145)
[2016-11-21 20:52] LABS: ALKALINE PHOSPHATASE 105 U/L (45-117); ALT (GPT) 47 U/L (12-78); CREATINE KINASE 305 U/L (39-308); TOTAL BILIRUBIN ADULT 0.9 MG/DL (0.2-1.0)
[2016-11-21] MEDS ORDERED: XARE20TA PO (21:25)
[2016-11-21] MEDS ORDERED: diphenhydrAMINE HCL 50 MG/ML VIAL IVP ONE (21:30)
[2016-11-21] MEDS ORDERED: PROCHLORPERAZINE INJ 10 MG/2 ML VIAL IVP ONE (21:30)
[2016-11-21 21:40] VITALS: BP 114/69; PULSE 93; RESP 18; O2SAT 100
[2016-11-21 22:10] LABS: BLOOD, URINE NEG (NEG); GLUCOSE,URINE NEG (NEG); KETONE, URINE 10 mg/dL (NEG); MUCUS URINE FEW /lpf (OCC); NITRITE,URINE NEG (NEG); PH, URINE 5.5 (5.0-8.5); URINE COLOR YELLOW (YELLW/STRAW)
[2016-11-21 22:14] LABS: COMMENT (UR) CATH-CULT NOT IND; CULTURE IF INDICATED CATH CULTURE NOT IND
[2016-11-21 22:41] VITALS: BP 116/77; PULSE 87; RESP 18; TEMP 98.1; O2SAT 100
[2016-11-22 01:06] LABS: AMPHETAMINE, URINE NEG (NEG); BARBITURATES, URINE NEG (NEG); COCAINE, URINE POS (NEG)
--- NOTE | 2016-11-22 12:10 | EKG ---
Date Performed: 11/21/2016 Time Performed: 20:25:08 PTAGE: 46 years EKG: Sinus rhythm WITH OCCASIONAL VENTRICULAR PREMATURE COMPLEXES Compared to the previous tracing, limb lead reversal has been corrected. Nonspecific T wave changes in the anterior precordium has resolved BORDERLINE EC G PREVIOUS TRACING : 11/04/2016 09.17 DOCTOR: Chapo Nunn Interpretating Date/Time 11/22/2016 12:08:47
== END 2016-11-21 22:50 | disposition home or self-care (01) ==
LOC: NEPC 19:38
DX: R55 Syncope and collapse (principal); F14.90 Cocaine use, unspecified, uncomplicated; G44.319 Acute post-traumatic headache, not intractable; I10 Essential (primary) hypertension; F17.200 Nicotine dependence, unspecified, uncomplicated
CPT/HCPCS: 70450; 71010; 80053; 80307; 81001; 82550; 84484; 85025; 93005; 96361; 96374; 96375; 99285; J0780; J1200; J1885; J7030

== ENCOUNTER 2016-12-18 06:30 | Emergency (ER) | payer MEDICAID ==
[~2016-12-18] VITALS: Ht 175.3 cm; Wt 98.0 kg
[~2016-12-18 06:30] MED LIST changes: -HYDR-3516 PO
[2016-12-18 06:32] VITALS: BP 162/103; PULSE 105; RESP 20; TEMP 98.3; O2SAT 96
[2016-12-18] MEDS ORDERED: SODIUM CHLORIDE 0.9% FLUSH 10 ML FLUSH IVF PRN (06:45)
[2016-12-18] MEDS ORDERED: methylPREDNISolone SOD SUCC 125 MG/2 ML VIAL IVP ONE (06:45)
[2016-12-18] MEDS ORDERED: RESP: ALBUTEROL 2.5 MG/IPRATROPIUM 0.5 MG NEB (SCH) INH ONE (06:45)
--- NOTE | 2016-12-18 06:48 | PD ---
HPI Chief Complaint: Seizure Time Seen by Provider: 06:35 Travel History International Travel<30 days: No Contact w/Intl Traveler<30days: No Traveled to known affect area: No History of Present Illness HPI 46-year-old male was brought him EMS after seizure episode at home today. Patient denies any history of seizure in the past. Patient has history of cocaine abuse. Last cocaine use was last night. Patient denies any alcohol abuse. Patient denies any other drug abuse. Patient has history of asthma. Patient states that he has headache this morning. Patient denies any visual change. Patient denies any neck pain. Patient denies any chest pain or shortness of breath. Patient denies abdominal pain. Patient denies any focal weakness or numbness of extremity. PFSH Past Medical History Hx Anticoagulant Therapy: Yes (XARELTO) Arthritis: No Asthma: Yes Autoimmune Disease: No Blood Disorders: No Anxiety: No Depression: No Heart Rhythm Problems: No Cancer: No Cardiovascular Problems: Yes ("HOLE IN HEART") High Cholesterol: No Chemotherapy: No Chest Pain: No Congestive Heart Failure: No COPD: No Cerebrovascular Accident: No Diabetes: No Diminished Hearing: No Endocrine: No Gastrointestinal Disorders: No GERD: No Genitourinary: No Headaches: No Hepatitis: No Hiatal Hernia: No Hypertension: Yes Immune Disorder: No Implanted Vascular Access Dvce: No Musculoskeletal: No Neurologic: No Psychiatric: No Reproductive: No Respiratory: Yes (ASTHMA ) Immunizations Current: Yes Migraines: No Radiation Therapy: No Seizures: No Sickle Cell Disease: No Sleep Apnea: No Thyroid Disease: No Ulcer: No PNEUMOCCOCAL Vaccine (Year): 2 Past Surgical History Abdominal Surgery: Yes (umbilical hernia repair/ appendectomy) Appendectomy: Yes Cardiac Surgery: No Ear Surgery: No Eye Surgery: No Genitourinary Surgery: No Oral Surgery: No Pacemaker: No Thoracic Surgery: Yes (LUNG biopsy) Other Surgery: Yes (TENDON REPAIR LEFT MIDDLE FINGER) Social History Alcohol Use: No (RARELY) Tobacco Use: Yes (1 ppd) Substance Use: Yes ( COCAINE ) Allergies-Medications (Allergen,Severity, Reaction): Coded Allergies: Darvocet-N 100 (Verified Allergy, Severe, Lip swelling, 11/21/16) Percocet (Verified Allergy, Severe, Itching, 11/21/16) Reported Meds & Prescriptions Reported Meds & Active Scripts Active Xarelto (Rivaroxaban) 20 Mg Tab 20 Mg PO DAILY Reported Prednisone 20 Mg Tab 20 Mg PO DAILY Xarelto (Rivaroxaban) 20 Mg Tab 20 Mg PO DAILY Losartan (Losartan Potassium) 25 Mg Tab 25 Mg PO DAILY Proventil Hfa 6.7 GM Inh (Albuterol Sulfate) 90 Mcg/Act Aer 1 Puff INH Q6H PRN Advair Diskus Inh (Fluticasone-Salmeterol Inh) 250-50 Mcg/Blist Aer 1 Puff INH BID Rinse mouth after use. Review of Systems General / Constitutional: No: Fever Eyes: No: Visual changes HENT: Positive: Headaches Cardiovascular: No: Chest Pain or Discomfort Respiratory: No: Shortness of Breath Gastrointestinal: No: Abdominal Pain Genitourinary: No: Dysuria Musculoskeletal: No: Pain Skin: No Rash Neurologic: Positive: Seizures, No: Weakness Psychiatric: No: Depression Endocrine: No: Polydipsia Hematologic/Lymphatic: No: Easy Bruising Physical Exam Narrative GENERAL: Well-nourished, well-developed patient. SKIN: Warm and dry. HEAD: Normocephalic. EYES: No scleral icterus. No injection or drainage. Pupils 5 mm equal reactive. NECK: Supple, trachea midline. No JVD or lymphadenopathy. CARDIOVASCULAR: Regular rate and rhythm without murmurs, gallops, or rubs. RESPIRATORY: Breath sounds equal bilaterally. No accessory muscle use. Patient has moderate expiratory wheezes bilaterally. GASTROINTESTINAL: Abdomen soft, non-tender, nondistended. MUSCULOSKELETAL: No cyanosis, or edema. BACK: Nontender without obvious deformity. No CVA tenderness. Neurologic exam: Patient is awake and alert oriented 3. No obvious focal neurological deficit. Data Data Last Documented VS Vital Signs Date Time Temp Pulse Resp B/P Pulse Ox O2 Delivery O2 Flow Rate FiO2 12/18/16 06:32 98.3 105 20 162/103 96 Orders Electrocardiogram (12/18/16 06:37) Complete Blood Count With Diff (12/18/16 06:37) Comprehensive Metabolic Panel (12/18/16 06:37) Creatine Kinase (Cpk) (12/18/16 06:37) Troponin I (12/18/16 06:37) Prothrombin Time / Inr (Pt) (12/18/16 06:37) Act Partial Throm Time (Ptt) (12/18/16 06:37) Thyroid Stimulating Hormone (12/18/16 06:37) Ct Brain W/O Iv Contrast(Rout) (12/18/16 06:37) Iv Access Insert/Monitor (12/18/16 06:37) Ecg Monitoring (12/18/16 06:37) Oximetry (12/18/16 06:37) Drug Screen, Random Urine (12/18/16 06:37) Alcohol (Ethanol) (12/18/16 06:37) MDM Medical Decision Making Medical Screen Exam Complete: Yes Emergency Medical Condition: Yes Differential Diagnosis Differential diagnosis including new-onset seizure, cocaine induced seizure, electrolyte abnormality, TIA, CVA, arrhythmia. Narrative Course 46-year-old male was brought in by EMS for seizure. History of cocaine abuse. History of asthma. Albuterol with Atrovent unit dose treatment 1. Solu- Medrol 125 g IV. Timur Clifford MD Dec 18, 2016 06:47
[2016-12-18 07:02] VITALS: O2SAT 96
[2016-12-18 07:12] LABS: AUTOMATED NEUTROPHIL # 5.1 TH/MM3 (1.8-7.7); BASOPHIL # 0.1 TH/MM3 (0-0.2); BASOPHIL % 1.2 % (0.0-2.0); EOSINOPHIL # 0.4 TH/MM3 (0-0.4); EOSINOPHIL % 4.4 % (0.0-4.0); HEMATOCRIT 45.7 % (39.0-51.0); HEMO FLAGS DIFF FINAL; LYMPH % 28.4 % (9.0-44.0); LYMPHOCYTE # 2.5 TH/MM3 (1.0-4.8); MEAN CORPUSCULAR HEMOGLOBIN 32.8 PG (27.0-34.0); MEAN CORPUSCULAR HGB CONC 34.1 % (32.0-36.0); MONO % 8.8 % (0.0-8.0); NEUT % 57.2 % (16.0-70.0); PLATELET COUNT 440 TH/MM3 (150-450); RED BLOOD COUNT 4.77 MIL/MM3 (4.50-5.90); RED CELL DISTRIBUTION WIDTH 13.1 % (11.6-17.2); WHITE BLOOD COUNT 8.9 TH/MM3 (4.0-11.0)
[2016-12-18 07:22] LABS: PROTHROMBIN TIME - PATIENT 11.1 SEC (9.8-11.6)
[2016-12-18 07:27] LABS: APTT (PATIENT) 23.8 SEC (24.3-30.1)
[2016-12-18 07:30] VITALS: BP 161/80; PULSE 96; RESP 18; O2SAT 97
--- NOTE | 2016-12-18 07:34 | RADRPT ---
EXAM DATE/TIME: 12/18/2016 07:06 [facility] COMPARISON: CT BRAIN W/O CONTRAST, November 21, 2016, 20:10. INDICATIONS : Possible seizure today, cephalgia. RADIATION DOSE: 56.35 CTDIvol (mGy) MEDICAL HISTORY : Hypertension. SURGICAL HISTORY : None. ENCOUNTER: Initial ACUITY: 1 week PAIN SCALE: 6/10 LOCATION: Bilateral head TECHNIQUE: Multiple contiguous axial images were obtained of the head. Using automated exposure control and adj ustment of the mA and/or kV according to patient size, radiation dose was kept as low as reasonably a chievable to obtain optimal diagnostic quality images. FINDINGS: CEREBRUM: The ventricles are normal for age. No evidence of midline shift, mass lesion, hemorrhage or acute in farction. No extra-axial fluid collections are seen. POSTERIOR FOSSA: The cerebellum and brainstem are intact. The 4th ventricle is midline. The cerebellopontine angle i s unremarkable. EXTRACRANIAL: The visualized portion of the orbits is intact. Air-fluid level identified in the left maxillary sinu s. Diffuse ethmoid air cell equal periosteal thickening. SKULL: The calvaria is intact. No evidence of skull fracture. CONCLUSION: No evidence of intracranial abnormality. Sinus disease is noted. Kenia Perez MD on December 18, 2016 at 7:31 Board Certified Radiologist. This report was verified electronically.
[2016-12-18 07:38] LABS: ANION GAP 11 MEQ/L (5-15)
[2016-12-18 07:49] LABS: ALKALINE PHOSPHATASE 92 U/L (45-117); ALT (GPT) 32 U/L (12-78); BICARBONATE 23.6 MEQ/L (21.0-32.0); BLOOD UREA NITROGEN 16 MG/DL (7-18); CHLORIDE 104 MEQ/L (98-107); CREATINE KINASE 476 U/L (39-308); GLOMERULAR FILTRATION RATE 67 ML/MIN (>89); SODIUM (NA) 139 MEQ/L (136-145); TOTAL BILIRUBIN ADULT 0.9 MG/DL (0.2-1.0)
[2016-12-18 07:50] LABS: AST (GOT) 27 U/L (15-37); POTASSIUM 3.4 MEQ/L (3.5-5.1)
[2016-12-18 08:03] LABS: CKMB 2.9 NG/ML (0.5-3.6)
[2016-12-18 08:22] LABS: AMPHETAMINE, URINE NEG (NEG); BARBITURATES, URINE NEG (NEG); COCAINE, URINE POS (NEG)
[2016-12-18 08:30] VITALS: BP 168/96; PULSE 92; RESP 18; O2SAT 96
--- NOTE | 2016-12-18 10:20 | PD ---
Data Data Last Documented VS Vital Signs Date Time Temp Pulse Resp B/P Pulse Ox O2 Delivery O2 Flow Rate FiO2 12/18/16 08:30 92 18 168/96 96 Room Air 12/18/16 06:32 98.3 Orders Electrocardiogram (12/18/16 06:37) Complete Blood Count With Diff (12/18/16 06:37) Comprehensive Metabolic Panel (12/18/16 06:37) Creatine Kinase (Cpk) (12/18/16 06:37) Troponin I (12/18/16 06:37) Prothrombin Time / Inr (Pt) (12/18/16 06:37) Act Partial Throm Time (Ptt) (12/18/16 06:37) Thyroid Stimulating Hormone (12/18/16 06:37) Ct Brain W/O Iv Contrast(Rout) (12/18/16 06:37) Iv Access Insert/Monitor (12/18/16 06:37) Ecg Monitoring (12/18/16 06:37) Oximetry (12/18/16 06:37) Drug Screen, Random Urine (12/18/16 06:37) Alcohol (Ethanol) (12/18/16 06:37) Sodium Chloride 0.9% Flush (Ns Flush) (12/18/16 06:45) Methylprednisolone So Succ Inj (Solumedr (12/18/16 06:45) Albuterol-Ipratropium Neb (Duoneb Neb) (12/18/16 06:45) CKMB (12/18/16 06:51) CKMB% (12/18/16 06:51) Labs Laboratory Tests Test 12/18/16 12/18/16 06:51 07:57 White Blood Count 8.9 TH/MM3 Red Blood Count 4.77 MIL/MM3 Hemoglobin 15.6 GM/DL Hematocrit 45.7 % Mean Corpuscular Volume 96.0 FL Mean Corpuscular Hemoglobin 32.8 PG Mean Corpuscular Hemoglobin 34.1 % Concent Red Cell Distribution Width 13.1 % Platelet Count 440 TH/MM3 Mean Platelet Volume 7.4 FL Neutrophils (%) (Auto) 57.2 % Lymphocytes (%) (Auto) 28.4 % Monocytes (%) (Auto) 8.8 % Eosinophils (%) (Auto) 4.4 % Basophils (%) (Auto) 1.2 % Neutrophils # (Auto) 5.1 TH/MM3 Lymphocytes # (Auto) 2.5 TH/MM3 Monocytes # (Auto) 0.8 TH/MM3 Eosinophils # (Auto) 0.4 TH/MM3 Basophils # (Auto) 0.1 TH/MM3 CBC Comment DIFF FINAL Differential Comment Prothrombin Time 11.1 SEC Prothromb Time International 1.0 RATIO Ratio Activated Partial 23.8 SEC Thromboplast Time Sodium Level 139 MEQ/L Potassium Level 3.4 MEQ/L Chloride Level 104 MEQ/L Carbon Dioxide Level 23.6 MEQ/L Anion Gap 11 MEQ/L Blood Urea Nitrogen 16 MG/DL Creatinine 1.38 MG/DL Estimat Glomerular Filtration 67 ML/MIN Rate Random Glucose 85 MG/DL Calcium Level 9.3 MG/DL Total Bilirubin 0.9 MG/DL Aspartate Amino Transf 27 U/L (AST/SGOT) Alanine Aminotransferase 32 U/L (ALT/SGPT) Alkaline Phosphatase 92 U/L Total Creatine Kinase 476 U/L Creatine Kinase MB 2.9 NG/ML Creatine Kinase MB % 0.6 % Troponin I 0.16 NG/ML Total Protein 7.8 GM/DL Albumin 4.1 GM/DL Thyroid Stimulating Hormone 1.700 uIU/ML 3rd Gen Ethyl Alcohol Level LESS THAN 3 MG/DL Urine Opiates Screen POS Urine Barbiturates Screen NEG Urine Amphetamines Screen NEG Urine Benzodiazepines Screen NEG Urine Cocaine Screen POS Urine Cannabinoids Screen NEG MDM Supervised Visit with ALONZO: No Narrative Course Case checked out to me at [address] Clifford felt the patient would be able to be discharged. I did review the entirety of the workup. Patient is a frequent abuser of cocaine and reportedly had a seizure He's been observed here 3-4 hours and had no recurrent seizure activity or any new complaint. He is completely asymptomatic now wants to go home He did not have any cardiac symptoms whatsoever but a troponin was ordered I am not sure why. It Should not be used as a screening test. I reviewed his past medical records and prior lab studies. The last 5 times we' ve checked his troponin it has been elevated. He even had a cardiology consultation because of an elevated troponin without cardiac symptoms. There was no recommendation for any CAD type of testing or screening. I do not have any clinical suspicion of ACS. Troponin elevation is minor. I reviewed his EKG which shows sinus rhythm but no acute ST elevation. I believe he is stable for discharge. His main problem is his rampant cocaine abuse. I'm recommending [facility] drug rehabilitation services. He should also follow-up with primary care. CK is 476 not consistent with rhabdomyolysis. Diagnosis Primary Impression: Seizure Additional Impression: Cocaine use Additional Instruction: The patient was advised to follow up with their physician and return if they worsen. Recommend [facility] drug rehabilitation services Med/Other Pt SpecificInfo: Other Disposition: 01 DISCHARGE HOME Condition: Stable Mark Anderson MD Dec 18, 2016 10:19
--- NOTE | 2016-12-18 17:28 | EKG ---
Date Performed: 12/18/2016 Time Performed: 07:56:38 PTAGE: 46 years EKG: Sinus rhythm NONSPECIFIC T-WAVE ABNORMALITY Compared to previous tracing, nonspecific T wave abnormalities are ne w BORDERLINE ECG PREVIOUS TRACING : 11/21/2016 20.25 DOCTOR: Travis Cottrell Interpretating Date/Time 12/18/2016 17:27:18
== END 2016-12-18 10:35 | disposition home or self-care (01) ==
LOC: NEPE 06:30
DX: R56.9 Unspecified convulsions (principal); R94.31 Abnormal electrocardiogram [ECG] [EKG]; I10 Essential (primary) hypertension; F17.210 Nicotine dependence, cigarettes, uncomplicated; F14.90 Cocaine use, unspecified, uncomplicated
CPT/HCPCS: 70450; 80053; 80307; 82550; 82552; 84443; 84484; 85025; 85610; 85730; 93005; 94664; 96374; 99285; J2930

== ENCOUNTER 2016-12-18 23:15 | Emergency (ER) | payer MEDICAID ==
[2016-12-18 23:20] VITALS: BP 118/78; PULSE 123; RESP 20; TEMP 98.9; O2SAT 95
--- NOTE | 2016-12-18 23:51 | PD ---
HPI Chief Complaint: Psychiatric Symptoms Time Seen by Provider: 23:34 Travel History International Travel<30 days: No Contact w/Intl Traveler<30days: No Traveled to known affect area: No History of Present Illness HPI 46-year-old male was [place] acted and brought in for evaluation. Patient's family states the patient was paranoid and had visual hallucination and sweating and agitated at home. Patient admitted abusing cocaine, steroids and alcohol. Patient denies any headache. Patient denies any chest pain or shortness of breath. Patient denies abdominal pain. Patient denies any focal weakness or numbness of extremity. EMS was called. Patient was given Ativan 2 mg IM. Patient states that he feels much better now. Patient states that he has history of hypertension and asthma. Patient was in the emergency room last night and had full workup including blood test urine test CT scan of the brain which were negative. Patient was discharged this morning. PFSH Past Medical History Hx Anticoagulant Therapy: Yes (XARELTO) Arthritis: No Asthma: Yes Autoimmune Disease: No Blood Disorders: No Anxiety: No Depression: No Heart Rhythm Problems: No Cancer: No Cardiovascular Problems: Yes ("HOLE IN HEART") High Cholesterol: No Chemotherapy: No Chest Pain: No Congestive Heart Failure: No COPD: No Cerebrovascular Accident: No Diabetes: No Diminished Hearing: No Endocrine: No Gastrointestinal Disorders: No GERD: No Genitourinary: No Headaches: No Hepatitis: No Hiatal Hernia: No Hypertension: Yes Immune Disorder: No Implanted Vascular Access Dvce: No Musculoskeletal: No Neurologic: No Psychiatric: No Reproductive: No Respiratory: Yes (ASTHMA ) Immunizations Current: Yes Migraines: No Radiation Therapy: No Seizures: No Sickle Cell Disease: No Sleep Apnea: No Thyroid Disease: No Ulcer: No PNEUMOCCOCAL Vaccine (Year): 2 Past Surgical History Abdominal Surgery: Yes (umbilical hernia repair/ appendectomy) Appendectomy: Yes Cardiac Surgery: No Ear Surgery: No Eye Surgery: No Genitourinary Surgery: No Oral Surgery: No Pacemaker: No Thoracic Surgery: Yes (LUNG biopsy) Other Surgery: Yes (TENDON REPAIR LEFT MIDDLE FINGER) Social History Alcohol Use: No (RARELY) Tobacco Use: Yes (1 ppd) Substance Use: Yes ( COCAINE, STEROIDS ) Allergies-Medications (Allergen,Severity, Reaction): Coded Allergies: Darvocet-N 100 (Verified Allergy, Severe, Lip swelling, 11/21/16) Percocet (Verified Allergy, Severe, Itching, 11/21/16) Reported Meds & Prescriptions Reported Meds & Active Scripts Active Xarelto (Rivaroxaban) 20 Mg Tab 20 Mg PO DAILY Reported Prednisone 20 Mg Tab 20 Mg PO DAILY Xarelto (Rivaroxaban) 20 Mg Tab 20 Mg PO DAILY Losartan (Losartan Potassium) 25 Mg Tab 25 Mg PO DAILY Proventil Hfa 6.7 GM Inh (Albuterol Sulfate) 90 Mcg/Act Aer 1 Puff INH Q6H PRN Advair Diskus Inh (Fluticasone-Salmeterol Inh) 250-50 Mcg/Blist Aer 1 Puff INH BID Rinse mouth after use. Review of Systems General / Constitutional: No: Fever Eyes: No: Visual changes HENT: No: Headaches Cardiovascular: No: Chest Pain or Discomfort Respiratory: No: Shortness of Breath Gastrointestinal: No: Abdominal Pain Genitourinary: No: Dysuria Musculoskeletal: No: Pain Skin: No Rash Neurologic: No: Weakness Psychiatric: No: Depression Endocrine: No: Polydipsia Hematologic/Lymphatic: No: Easy Bruising Physical Exam Narrative GENERAL: Well-nourished, well-developed patient. SKIN: Warm and dry. HEAD: Normocephalic. EYES: No scleral icterus. No injection or drainage. NECK: Supple, trachea midline. No JVD or lymphadenopathy. CARDIOVASCULAR: Regular rate and rhythm without murmurs, gallops, or rubs. RESPIRATORY: Breath sounds equal bilaterally. No accessory muscle use. GASTROINTESTINAL: Abdomen soft, non-tender, nondistended. MUSCULOSKELETAL: No cyanosis, or edema. BACK: Nontender without obvious deformity. No CVA tenderness. Neurologic exam normal. Data Data Last Documented VS Vital Signs Date Time Temp Pulse Resp B/P Pulse Ox O2 Delivery O2 Flow Rate FiO2 12/19/16 17:32 78 18 12/19/16 14:00 132/61 Room Air 12/19/16 11:03 95 12/19/16 08:06 98.0 Orders Complete Blood Count With Diff (12/18/16 23:42) Comprehensive Metabolic Panel (12/18/16 23:42) Psych Screen (12/18/16 23:42) Drug Screen, Random Urine (12/18/16 23:42) Alcohol (Ethanol) (12/18/16 23:42) Diet Regular Basic (12/19/16 Breakfast) Diet Regular Basic (12/19/16 Lunch) Labs Laboratory Tests Test 12/18/16 12/19/16 23:40 08:05 White Blood Count 11.6 TH/MM3 Red Blood Count 4.76 MIL/MM3 Hemoglobin 15.8 GM/DL Hematocrit 45.3 % Mean Corpuscular Volume 95.2 FL Mean Corpuscular Hemoglobin 33.3 PG Mean Corpuscular Hemoglobin 35.0 % Concent Red Cell Distribution Width 13.0 % Platelet Count 462 TH/MM3 Mean Platelet Volume 7.6 FL Neutrophils (%) (Auto) 79.8 % Lymphocytes (%) (Auto) 10.6 % Monocytes (%) (Auto) 9.3 % Eosinophils (%) (Auto) 0.1 % Basophils (%) (Auto) 0.2 % Neutrophils # (Auto) 9.3 TH/MM3 Lymphocytes # (Auto) 1.2 TH/MM3 Monocytes # (Auto) 1.1 TH/MM3 Eosinophils # (Auto) 0.0 TH/MM3 Basophils # (Auto) 0.0 TH/MM3 CBC Comment DIFF FINAL Differential Comment Sodium Level 139 MEQ/L Potassium Level 3.9 MEQ/L Chloride Level 105 MEQ/L Carbon Dioxide Level 23.4 MEQ/L Anion Gap 11 MEQ/L Blood Urea Nitrogen 21 MG/DL Creatinine 1.82 MG/DL Estimat Glomerular Filtration 48 ML/MIN Rate Random Glucose 93 MG/DL Calcium Level 9.5 MG/DL Total Bilirubin 0.7 MG/DL Aspartate Amino Transf 18 U/L (AST/SGOT) Alanine Aminotransferase 33 U/L (ALT/SGPT) Alkaline Phosphatase 91 U/L Total Protein 8.2 GM/DL Albumin 4.2 GM/DL Ethyl Alcohol Level LESS THAN 3 MG/DL Urine Opiates Screen POS Urine Barbiturates Screen NEG Urine Amphetamines Screen NEG Urine Benzodiazepines Screen NEG Urine Cocaine Screen POS Urine Cannabinoids Screen POS MDM Medical Decision Making Medical Screen Exam Complete: Yes Emergency Medical Condition: Yes Interpretation(s) 3:44 AM. CBC with WBC 11.6. Hemoglobin 15.8 hematocrit 45.3. Platelets 462. 79 neutrophil. BUN 21. Creatinine 1.82. Alcohol less than 3. Differential Diagnosis Differential diagnosis including drug-induced mood disorder, psychiatric issues. Narrative Course 46-year-old male was brought in for psychiatric evaluation for being paranoid and hallucinating. Patient admitted to cocaine, steroid, alcohol abuse. 3:45 AM. Patient is medically cleared for psychiatric evaluation and disposition. Diagnosis Primary Impression: Drug-induced mood disorder Additional Instructions: Follow-up with local physician Disposition: 01 DISCHARGE HOME Condition: Stable Timur Clifford MD Dec 18, 2016 23:51
[2016-12-19 00:23] LABS: AUTOMATED NEUTROPHIL # 9.3 TH/MM3 (1.8-7.7); BASOPHIL % 0.2 % (0.0-2.0); EOSINOPHIL % 0.1 % (0.0-4.0); HEMATOCRIT 45.3 % (39.0-51.0); HEMO FLAGS DIFF FINAL; LYMPH % 10.6 % (9.0-44.0); LYMPHOCYTE # 1.2 TH/MM3 (1.0-4.8); MEAN CELL VOLUME 95.2 FL (80.0-100.0); MEAN CORPUSCULAR HEMOGLOBIN 33.3 PG (27.0-34.0); MONO % 9.3 % (0.0-8.0); NEUT % 79.8 % (16.0-70.0); PLATELET COUNT 462 TH/MM3 (150-450); RED BLOOD COUNT 4.76 MIL/MM3 (4.50-5.90); WHITE BLOOD COUNT 11.6 TH/MM3 (4.0-11.0)
[2016-12-19 00:34] LABS: ALT (GPT) 33 U/L (12-78); ANION GAP 11 MEQ/L (5-15); AST (GOT) 18 U/L (15-37); BICARBONATE 23.4 MEQ/L (21.0-32.0); BLOOD UREA NITROGEN 21 MG/DL (7-18); CHLORIDE 105 MEQ/L (98-107); GLOMERULAR FILTRATION RATE 48 ML/MIN (>89); POTASSIUM 3.9 MEQ/L (3.5-5.1); SODIUM (NA) 139 MEQ/L (136-145)
[2016-12-19 00:36] LABS: ALKALINE PHOSPHATASE 91 U/L (45-117); TOTAL BILIRUBIN ADULT 0.7 MG/DL (0.2-1.0)
[2016-12-19 04:36] VITALS: BP 108/62; PULSE 85; RESP 16; O2SAT 97
[2016-12-19 08:06] VITALS: BP 121/72; PULSE 94; RESP 18; TEMP 98; O2SAT 95
[2016-12-19 08:50] LABS: AMPHETAMINE, URINE NEG (NEG); BARBITURATES, URINE NEG (NEG); COCAINE, URINE POS (NEG)
[2016-12-19 11:03] VITALS: BP 94/51; PULSE 78; RESP 17; O2SAT 95
[2016-12-19 14:00] VITALS: BP 132/61; PULSE 75; RESP 18
--- NOTE | 2016-12-19 18:16 | PD ---
History of Present Illness Chief Complaint: Psychiatric Symptoms Time Seen by Provider: 17:45 Travel History International Travel<30 Days: No Contact w/Intl Traveler<30days: No Known affected area: No Legal Status Legal Status: Paulson Act Paulson Act Signed By: Juanito Borrero History of Present Illness: History of Present Illness HPI 46-year-old male with history of cocaine abuse who was Paulson acted by police and brought in for evaluation. As per ED documentation and included in this report " Patient's family states the patient was paranoid and had visual hallucination and sweating and agitated at home." Patient has had several visits to [facility] for cocaine abuse. He admits to having been using cocaine for the past 3 days and has not slept in those 3 days. He was allowed to sleep while being monitored in J pod. He is awake, alert, oriented. He is angry that his family brought him here and repeats " I am not crazy. I use drugs and I fucked up again. Of course I was hallucinating I have not slept in 3 days". I need to go home. I work and I don' t want to loose my job". He denies any psychiatric history and denies any suicidal ideation. He states that he will go to outpatient treatment but that he does not want inpatient treatment. PFSH Past Medical History Hx Anticoagulant Therapy: Yes (XARELTO) Arthritis: No Asthma: Yes Autoimmune Disease: No Blood Disorders: No Anxiety: No Depression: No Heart Rhythm Problems: No Cancer: No Cardiovascular Problems: Yes ("HOLE IN HEART") High Cholesterol: No Chemotherapy: No Chest Pain: No Congestive Heart Failure: No COPD: No Cerebrovascular Accident: No Diabetes: No Diminished Hearing: No Endocrine: No Gastrointestinal Disorders: No GERD: No Genitourinary: No Headaches: No Hepatitis: No Hiatal Hernia: No Hypertension: Yes Immune Disorder: No Implanted Vascular Access Dvce: No Musculoskeletal: No Neurologic: No Psychiatric: No Reproductive: No Respiratory: Yes (ASTHMA ) Immunizations Current: Yes Migraines: No Radiation Therapy: No Seizures: No Sickle Cell Disease: No Sleep Apnea: No Thyroid Disease: No Ulcer: No PNEUMOCCOCAL Vaccine (Year): 2 Past Surgical History Abdominal Surgery: Yes (umbilical hernia repair/ appendectomy) Appendectomy: Yes Cardiac Surgery: No Ear Surgery: No Eye Surgery: No Genitourinary Surgery: No Oral Surgery: No Pacemaker: No Thoracic Surgery: Yes (LUNG biopsy) Other Surgery: Yes (TENDON REPAIR LEFT MIDDLE FINGER) Psychiatric History Psychiatric History Hx Psychiatric Treatment: NO PREVIOUS TREATMENT OR DIAGNOSIS History of Inpatient Treatment: No Guns or firearms in home: No Social History x 30 years. Lives with his . 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 Hx Alcohol Use: No (RARELY) Hx Tobacco Use: Yes (1 ppd) Hx Substance Use: Yes (admits to 5 year history of cocaine abuse. ) Substance Use Type: Marijuana, Cocaine, Synth Opiates-Pain Pills Hx of Substance Use Treatment: No Family Psychiatric History None reported Allergies-Medications (Allergen,Severity, Reaction): Coded Allergies: Darvocet-N 100 (Verified Allergy, Severe, Lip swelling, 11/21/16) Percocet (Verified Allergy, Severe, Itching, 11/21/16) Reported Meds & Prescriptions Reported Meds & Active Scripts Active Xarelto (Rivaroxaban) 20 Mg Tab 20 Mg PO DAILY Reported Prednisone 20 Mg Tab 20 Mg PO DAILY Xarelto (Rivaroxaban) 20 Mg Tab 20 Mg PO DAILY Losartan (Losartan Potassium) 25 Mg Tab 25 Mg PO DAILY Proventil Hfa 6.7 GM Inh (Albuterol Sulfate) 90 Mcg/Act Aer 1 Puff INH Q6H PRN Advair Diskus Inh (Fluticasone-Salmeterol Inh) 250-50 Mcg/Blist Aer 1 Puff INH BID Rinse mouth after use. Review of Systems Except as stated in HPI: all other systems reviewed are Neg Exam Alert: Yes Allen: Person (ox4) Mood: Angry Affect: Euthymic Speech: Clear, Logical Eye Contact: Normal Memory Intact: Comment (no impairmetn) Hallucinations: Other (neagtive) Delusions: No Suicidal: Ideation (neagtive) Homicidal: Ideation (neagtive) Insight/Judgement poor. not impaired. MDM Medical Decision Making Medical Record Reviewed: Yes Assessment/Plan 46 year old male with history of cocaine abuse who has been on a 3 day binge. He has not slep tin 3 days and was paranoid and hallucinating. He was allowed to sleep and is now sober. He has no psychiatric symptoms. He does not meet criteria for BA so it will be lifted. He will be provided with outpatient resources . It is my understanding that his family plans on filing a [place] act tomorrow. Orders Complete Blood Count With Diff (12/18/16 23:42) Comprehensive Metabolic Panel (12/18/16 23:42) Psych Screen (12/18/16 23:42) Drug Screen, Random Urine (12/18/16 23:42) Alcohol (Ethanol) (12/18/16 23:42) Diet Regular Basic (12/19/16 Breakfast) Diet Regular Basic (12/19/16 Lunch) Diet Regular Basic (12/19/16 Dinner) Results Vital Signs Date Time Temp Pulse Resp B/P Pulse Ox O2 Delivery O2 Flow Rate FiO2 12/19/16 17:32 78 18 12/19/16 14:00 75 18 132/61 Room Air 12/19/16 11:03 78 17 94/51 95 Room Air 12/19/16 08:06 98.0 94 18 121/72 95 Room Air 12/19/16 04:36 85 16 108/62 97 Room Air 12/18/16 23:26 123 20 12/18/16 23:20 98.9 123 20 118/78 95 Laboratory Tests Test 12/18/16 12/19/16 23:40 08:05 White Blood Count 11.6 Red Blood Count 4.76 Hemoglobin 15.8 Hematocrit 45.3 Mean Corpuscular Volume 95.2 Mean Corpuscular Hemoglobin 33.3 Mean Corpuscular Hemoglobin 35.0 Concent Red Cell Distribution Width 13.0 Platelet Count 462 Mean Platelet Volume 7.6 Neutrophils (%) (Auto) 79.8 Lymphocytes (%) (Auto) 10.6 Monocytes (%) (Auto) 9.3 Eosinophils (%) (Auto) 0.1 Basophils (%) (Auto) 0.2 Neutrophils # (Auto) 9.3 Lymphocytes # (Auto) 1.2 Monocytes # (Auto) 1.1 Eosinophils # (Auto) 0.0 Basophils # (Auto) 0.0 CBC Comment DIFF FINAL Differential Comment Sodium Level 139 Potassium Level 3.9 Chloride Level 105 Carbon Dioxide Level 23.4 Anion Gap 11 Blood Urea Nitrogen 21 Creatinine 1.82 Estimat Glomerular Filtration 48 Rate Random Glucose 93 Calcium Level 9.5 Total Bilirubin 0.7 Aspartate Amino Transf 18 (AST/SGOT) Alanine Aminotransferase 33 (ALT/SGPT) Alkaline Phosphatase 91 Total Protein 8.2 Albumin 4.2 Ethyl Alcohol Level LESS THAN 3 Urine Opiates Screen POS Urine Barbiturates Screen NEG Urine Amphetamines Screen NEG Urine Benzodiazepines Screen NEG Urine Cocaine Screen POS Urine Cannabinoids Screen POS Diagnosis Primary Impression: Cocaine use Additional Impression: Substance abuse Ruled Out: Drug-induced mood disorder Psychiatrically Cleared: Yes Med/ Other Pt Specific Info: No Meds Exist/No RX given Disposition: 01 DISCHARGE HOME Condition: Stable Problem Qualifiers Carolyn Baker Dec 19, 2016 18:16
== END 2016-12-19 18:42 | disposition home or self-care (01) ==
LOC: NEPC 23:15 → NEPJ 12-19 18:42
DX: F19.94 Other psychoactive substance use, unspecified with psychoactive substance-induced mood disorder (principal); I10 Essential (primary) hypertension; F17.210 Nicotine dependence, cigarettes, uncomplicated; F14.90 Cocaine use, unspecified, uncomplicated; F15.90 Other stimulant use, unspecified, uncomplicated; F12.90 Cannabis use, unspecified, uncomplicated; Z79.01 Long term (current) use of anticoagulants
CPT/HCPCS: 80053; 80307; 85025; 99284

== ENCOUNTER 2017-04-24 05:33 | Observation (INO) | payer MEDICAID ==
[~2017-04-24] VITALS: Ht 175.3 cm; Wt 91.4 kg
[2017-04-24] VITALS (15 sets, daily range): BP systolic 95–154; BP diastolic 54–101; PULSE 62–100; RESP 9–24; TEMP 97.3–97.7; O2SAT 94–100
[2017-04-24 06:06] LABS: CHLORIDE 106 MEQ/L (98-107); POTASSIUM 3.8 MEQ/L (3.5-5.1); SODIUM (NA) 141 MEQ/L (136-145)
[2017-04-24 06:09] LABS: ANION GAP 12 MEQ/L (5-15); BICARBONATE 23.2 MEQ/L (21.0-32.0); BLOOD UREA NITROGEN 12 MG/DL (7-18)
[2017-04-24 06:11] LABS: AUTOMATED NEUTROPHIL # 10.1 TH/MM3 (1.8-7.7); BASOPHIL # 0.1 TH/MM3 (0-0.2); BASOPHIL % 0.7 % (0.0-2.0); HEMATOCRIT 47.8 % (39.0-51.0); LYMPH % 19.4 % (9.0-44.0); LYMPHOCYTE # 2.6 TH/MM3 (1.0-4.8); MEAN CELL VOLUME 97.2 FL (80.0-100.0); MEAN CORPUSCULAR HEMOGLOBIN 31.5 PG (27.0-34.0); MEAN CORPUSCULAR HGB CONC 32.4 % (32.0-36.0); MONO % 4.8 % (0.0-8.0); NEUT % 75.1 % (16.0-70.0); PLATELET COUNT 422 TH/MM3 (150-450); RED BLOOD COUNT 4.92 MIL/MM3 (4.50-5.90); RED CELL DISTRIBUTION WIDTH 13.7 % (11.6-17.2); WHITE BLOOD COUNT 13.4 TH/MM3 (4.0-11.0)
[2017-04-24 06:12] LABS: GLOMERULAR FILTRATION RATE 66 ML/MIN (>89)
[2017-04-24 06:13] LABS: HEMO FLAGS AUTO DIFF
[2017-04-24 06:15] LABS: CREATINE KINASE 259 U/L (39-308)
--- NOTE | 2017-04-24 06:19 | RADRPT ---
EXAM DATE/TIME: 04/24/2017 05:45 [facility] COMPARISON: CHEST PA & LAT, October 04, 2014, 19:40. INDICATIONS : Chest pain MEDICAL HISTORY : Hypertension. Asthma. SURGICAL HISTORY : None. ENCOUNTER: Initial ACUITY: 1 day PAIN SCORE: 8/10 LOCATION: Left chest FINDINGS: PA and lateral views of the chest demonstrate the lungs to be symmetrically aerated without evidence of mass, infiltrate or effusion. The cardiomediastinal contours are unremarkable. Osseous structure s are intact. CONCLUSION: Normal examination. Max Tracy MD on April 24, 2017 at 6:18 Board Certified Radiologist. This report was verified electronically.
[2017-04-24 06:28] LABS: CKMB 1.8 NG/ML (0.5-3.6)
--- NOTE | 2017-04-24 06:29 | PD ---
HPI Chief Complaint: Chest Pain Time Seen by Provider: 06:21 Travel History International Travel<30 days: No Contact w/Intl Traveler<30days: No Traveled to known affect area: No History of Present Illness HPI The patient is a 46-year-old male that complains of a pressure type pleuritic chest pain at 4:30 this morning. The pain is constant, increased with respirations or movement and not associated with nausea, shortness of breath, diaphoresis or radiation of pain. He does not have any known history of heart disease. He is on Xarelto for pulmonary emboli. The patient is poorly compliant on his medications and has not taken his Xarelto for 5 days. He states the pain feels similar to the pain he had with his pulmonary emboli. She denies any fever, hemoptysis, syncopal spells or tachycardia. PFSH Past Medical History Hx Anticoagulant Therapy: Yes (XARELTO) Arthritis: No Asthma: Yes Autoimmune Disease: No Blood Disorders: No Anxiety: No Depression: No Heart Rhythm Problems: No Cancer: No Cardiovascular Problems: Yes ("HOLE IN HEART") High Cholesterol: No Chemotherapy: No Chest Pain: No Congestive Heart Failure: No COPD: No Cerebrovascular Accident: No Diabetes: No Diminished Hearing: No Endocrine: No Gastrointestinal Disorders: No GERD: No Genitourinary: No Headaches: No Hepatitis: No Hiatal Hernia: No Hypertension: Yes Immune Disorder: No Implanted Vascular Access Dvce: No Musculoskeletal: No Neurologic: No Psychiatric: No Reproductive: No Respiratory: Yes (ASTHMA ) Immunizations Current: Yes Migraines: No Radiation Therapy: No Seizures: No Sickle Cell Disease: No Sleep Apnea: No Thyroid Disease: No Ulcer: No PNEUMOCCOCAL Vaccine (Year): 2 Past Surgical History Abdominal Surgery: Yes (umbilical hernia repair/ appendectomy) Appendectomy: Yes Cardiac Surgery: No Ear Surgery: No Eye Surgery: No Genitourinary Surgery: No Oral Surgery: No Pacemaker: No Thoracic Surgery: Yes (LUNG biopsy) Other Surgery: Yes (TENDON REPAIR LEFT MIDDLE FINGER) Social History Alcohol Use: No (RARELY) Tobacco Use: Yes (1 ppd) Substance Use: Yes (admits to 5 year history of cocaine abuse. ) Allergies-Medications (Allergen,Severity, Reaction): Coded Allergies: Darvocet-N 100 (Verified Allergy, Severe, Lip swelling, 11/21/16) Percocet (Verified Allergy, Severe, Itching, 11/21/16) Reported Meds & Prescriptions Reported Meds & Active Scripts Active Xarelto (Rivaroxaban) 20 Mg Tab 20 Mg PO DAILY Reported Prednisone 20 Mg Tab 20 Mg PO DAILY Xarelto (Rivaroxaban) 20 Mg Tab 20 Mg PO DAILY Losartan (Losartan Potassium) 25 Mg Tab 25 Mg PO DAILY Proventil Hfa 6.7 GM Inh (Albuterol Sulfate) 90 Mcg/Act Aer 1 Puff INH Q6H PRN Advair Diskus Inh (Fluticasone-Salmeterol Inh) 250-50 Mcg/Blist Aer 1 Puff INH BID Rinse mouth after use. Review of Systems Except as stated in HPI: all other systems reviewed are Neg Physical Exam Narrative GENERAL: The patient is alert, oriented 3 in no respiratory distress. His heart rate is 86, blood pressure 154/97, oxygenation is 98 on 2 L nasal cannula , respirations are 20 and temperature is SKIN: Focused skin assessment warm/dry. No skin rashes noted. HEAD: Atraumatic. Normocephalic. EYES: Pupils equal and round. No scleral icterus. No injection or drainage. ENT: No nasal bleeding or discharge. Mucous membranes pink and moist. NECK: Trachea midline. No JVD. CARDIOVASCULAR: Regular rate and rhythm. No murmur appreciated. I can completely reproduce the patient's pain by pressing on the anterior chest for the patient perceives his pain. RESPIRATORY: No accessory muscle use. Clear to auscultation. Breath sounds equal bilaterally. GASTROINTESTINAL: Abdomen soft, non-tender, nondistended. Hepatic and splenic margins not palpable. No guarding or rebound is present. MUSCULOSKELETAL: No obvious deformities. No clubbing. No cyanosis. No edema. NEUROLOGICAL: Awake and alert. No obvious cranial nerve deficits. Motor grossly within normal limits. Normal speech. PSYCHIATRIC: Appropriate mood and affect; insight and judgment normal. Data Data Orders Electrocardiogram (04/24/17 05:39) Complete Blood Count With Diff (04/24/17 05:39) Basic Metabolic Panel (Bmp) (04/24/17 05:39) Ckmb (Isoenzyme) Profile (04/24/17 05:39) Troponin I (04/24/17 05:39) Iv Access Insert/Monitor (04/24/17 05:39) Ecg Monitoring (04/24/17 05:39) Oxygen Administration (04/24/17 05:39) Oximetry (04/24/17 05:39) Chest, Pa & Lat (04/24/17 05:39) CKMB (04/24/17 05:50) CKMB% (04/24/17 05:50) Labs Laboratory Tests Test 04/24/17 05:50 White Blood Count 13.4 TH/MM3 Red Blood Count 4.92 MIL/MM3 Hemoglobin 15.5 GM/DL Hematocrit 47.8 % Mean Corpuscular Volume 97.2 FL Mean Corpuscular Hemoglobin 31.5 PG Mean Corpuscular Hemoglobin 32.4 % Concent Red Cell Distribution Width 13.7 % Platelet Count 422 TH/MM3 Mean Platelet Volume 8.2 FL Neutrophils (%) (Auto) 75.1 % Lymphocytes (%) (Auto) 19.4 % Monocytes (%) (Auto) 4.8 % Eosinophils (%) (Auto) 0.0 % Basophils (%) (Auto) 0.7 % Neutrophils # (Auto) 10.1 TH/MM3 Lymphocytes # (Auto) 2.6 TH/MM3 Monocytes # (Auto) 0.6 TH/MM3 Eosinophils # (Auto) 0.0 TH/MM3 Basophils # (Auto) 0.1 TH/MM3 CBC Comment AUTO DIFF Sodium Level 141 MEQ/L Potassium Level 3.8 MEQ/L Chloride Level 106 MEQ/L Carbon Dioxide Level 23.2 MEQ/L Anion Gap 12 MEQ/L Blood Urea Nitrogen 12 MG/DL Creatinine 1.40 MG/DL Estimat Glomerular Filtration 66 ML/MIN Rate Random Glucose 100 MG/DL Calcium Level 9.5 MG/DL Total Creatine Kinase 259 U/L Troponin I 0.15 NG/ML [facility] Medical Decision Making Medical Screen Exam Complete: Yes Emergency Medical Condition: Yes Medical Record Reviewed: Yes Differential Diagnosis Chest wall pain, acute coronary syndrome, esophageal pain, gastrointestinal pain , pleuritic pain, pulmonary embolus, electrolyte disorder Narrative Course The patient has been poorly compliant on his Xarelto and we will have to show that he does not have a recurrence of his pulmonary emboli. Justin Smart MD Apr 24, 2017 06:29
[2017-04-24] MEDS ORDERED: SODIUM CHLORIDE 0.9% FLUSH 10 ML FLUSH IVF PRN (06:30)
[2017-04-24 06:51] LABS: SCAN/DIFF AUTO DIFF CONFIRMED
[2017-04-24 06:57] LABS: TOTAL BILIRUBIN ADULT 0.8 MG/DL (0.2-1.0)
[2017-04-24 06:58] LABS: ALKALINE PHOSPHATASE 99 U/L (45-117)
[2017-04-24 07:01] LABS: APTT (PATIENT) 25.7 SEC (24.3-30.1)
[2017-04-24] MEDS ORDERED: IOHEXOL 350 MG/ML 10 ML VIAL (for RAD DIAG) IV ONE (07:03)
--- NOTE | 2017-04-24 07:08 | RADRPT ---
EXAM DATE/TIME: 04/24/2017 06:44 [facility] COMPARISON: CT PULMONARY ANGIOGRAM, June 07, 2016, 9:25. INDICATIONS : Shortness of breath this a.m. Prior history of P.E. IV CONTRAST: 74 cc Omnipaque 350 (iohexol) IV RADIATION DOSE: 15.09 CTDIvol (mGy) MEDICAL HISTORY : Cardiovascular disease. Asthma SURGICAL HISTORY : Umbilical hernia repair. Appendectomy.Lung biopsy ENCOUNTER: Initial ACUITY: 1 day PAIN SCALE: 10/10 LOCATION: Bilateral chest TECHNIQUE: Volumetric scanning of the chest was performed using a pulmonary embolism protocol MIP images were re constructed. Using automated exposure control and adjustment of the mA and/or kV according to patien t size, radiation dose was kept as low as reasonably achievable to obtain optimal diagnostic quality images. DICOM format image data is available electronically for review and comparison. Follow-up recommendations for incidentally detected pulmonary nodules are based at a minimum on nodul e size and patient risk factors according to Fleischner Society Guidelines. FINDINGS: There are no suspicious lung lesions identified. There is no axillary or mediastinal adenopathy. There is no evidence for central pulmonary emboli. There is no pericardial effusion. The portion of the liver and spleen identified are free of focal defects. CONCLUSION: 1. Negative for central pulmonary emboli. End Melvin Mendez MD FACR on April 24, 2017 at 7:05 Board Certified Radiologist. This report was verified electronically.
[2017-04-24 07:17] LABS: MAGNESIUM 1.8 MG/DL (1.5-2.5)
[2017-04-24 07:20] LABS: ALT (GPT) 21 U/L (12-78); AST (GOT) 15 U/L (15-37)
--- NOTE | 2017-04-24 07:52 | PD ---
Physical Exam Date Seen by Provider: Apr 24, 2017 Time Seen by Provider: 06:48 Narrative GENERAL: SKIN: Warm and dry. HEAD: Atraumatic. Normocephalic. EYES: Pupils equal and round. No scleral icterus. No injection or drainage. ENT: No nasal bleeding or discharge. Mucous membranes pink and moist. NECK: Trachea midline. No JVD. CARDIOVASCULAR: Regular rate and rhythm. RESPIRATORY: No accessory muscle use. Clear to auscultation. Breath sounds equal bilaterally. GASTROINTESTINAL: Abdomen soft, non-tender, nondistended. Hepatic and splenic margins not palpable. MUSCULOSKELETAL: Extremities without clubbing, cyanosis, or edema. No obvious deformities. NEUROLOGICAL: Awake and alert. No obvious cranial nerve deficits. Motor grossly within normal limits. Five out of 5 muscle strength in the arms and legs. Normal speech. PSYCHIATRIC: Appropriate mood and affect; insight and judgment normal. Data Data Last Documented VS Vital Signs Date Time Temp Pulse Resp B/P Pulse Ox O2 Delivery O2 Flow Rate FiO2 04/24/17 07:04 100 20 145/101 98 04/24/17 06:33 Nasal Cannula 2 Orders Electrocardiogram (04/24/17 05:39) Complete Blood Count With Diff (04/24/17 05:39) Ckmb (Isoenzyme) Profile (04/24/17 05:39) Troponin I (04/24/17 05:39) Iv Access Insert/Monitor (04/24/17 05:39) Ecg Monitoring (04/24/17 05:39) Oxygen Administration (04/24/17 05:39) Oximetry (04/24/17 05:39) Chest, Pa & Lat (04/24/17 05:39) CKMB (04/24/17 05:50) CKMB% (04/24/17 05:50) Prothrombin Time / Inr (Pt) (04/24/17 06:29) Act Partial Throm Time (Ptt) (04/24/17 06:29) Sodium Chloride 0.9% Flush (Ns Flush) (04/24/17 06:30) Ct Pulmonary Angiogram (04/24/17 06:29) Comprehensive Metabolic Panel (04/24/17 05:50) Magnesium (Mg) (04/24/17 05:50) Iohexol 350 Inj (Omnipaque 350 Inj) (04/24/17 07:03) Aspirin Chew (Aspirin Chew) (04/24/17 08:00) Morphine Inj (Morphine Inj) (04/24/17 08:00) Nitroglycerin 2% Oint (Nitroglycerin 2% (04/24/17 08:00) Sodium Chlorid 0.9% 500 Ml Inj (Ns 500 M (04/24/17 08:00) Admit Order (Ed Use Only) (04/24/17 07:48) Labs Laboratory Tests Test 04/24/17 04/24/17 05:35 05:50 Prothrombin Time 11.0 SEC Prothromb Time International 1.0 RATIO Ratio Activated Partial 25.7 SEC Thromboplast Time White Blood Count 13.4 TH/MM3 Red Blood Count 4.92 MIL/MM3 Hemoglobin 15.5 GM/DL Hematocrit 47.8 % Mean Corpuscular Volume 97.2 FL Mean Corpuscular Hemoglobin 31.5 PG Mean Corpuscular Hemoglobin 32.4 % Concent Red Cell Distribution Width 13.7 % Platelet Count 422 TH/MM3 Mean Platelet Volume 8.2 FL Neutrophils (%) (Auto) 75.1 % Lymphocytes (%) (Auto) 19.4 % Monocytes (%) (Auto) 4.8 % Eosinophils (%) (Auto) 0.0 % Basophils (%) (Auto) 0.7 % Neutrophils # (Auto) 10.1 TH/MM3 Lymphocytes # (Auto) 2.6 TH/MM3 Monocytes # (Auto) 0.6 TH/MM3 Eosinophils # (Auto) 0.0 TH/MM3 Basophils # (Auto) 0.1 TH/MM3 CBC Comment AUTO DIFF Differential Comment AUTO DIFF CONFIRMED Sodium Level 141 MEQ/L Potassium Level 3.8 MEQ/L Chloride Level 106 MEQ/L Carbon Dioxide Level 23.2 MEQ/L Anion Gap 12 MEQ/L Blood Urea Nitrogen 12 MG/DL Creatinine 1.40 MG/DL Estimat Glomerular Filtration 66 ML/MIN Rate Random Glucose 100 MG/DL Calcium Level 9.5 MG/DL Magnesium Level 1.8 MG/DL Total Bilirubin 0.8 MG/DL Aspartate Amino Transf 15 U/L (AST/SGOT) Alanine Aminotransferase 21 U/L (ALT/SGPT) Alkaline Phosphatase 99 U/L Total Creatine Kinase 259 U/L Creatine Kinase MB 1.8 NG/ML Troponin I 0.15 NG/ML Total Protein 8.1 GM/DL Albumin 4.2 GM/DL [facility] Medical Record Reviewed: Yes Supervised Visit with ALONZO: No Interpretation(s) NSR 99, J POINT ELEVATION, INCOMPLETE LBBB PATTERN, NONSPEC STT CHANGES Differential Diagnosis PNA V PE V ATYPICAL PA V NONSTEMI Narrative Course CT CHEST NEG FOR PE/PNA/PTX/PERICARDIAL OR PLEURAL EFFUSION Critical Care Narrative CRITICAL CARE NOTE: With evaluation of the patient, labs, EKG, receipt of radiologic studies, administration of medications, reevaluation the patient and discussion of the patient with the admitting physicians, the total critical care time was [30] minutes. Time to perform other separately billable procedures was not included in the critical care time. Diagnosis Primary Impression: NONSTEMI Admitting Information Admitting Physician Requests: Observation Prosper Hanna MD Apr 24, 2017 07:52
[2017-04-24] MEDS ORDERED: NITROGLYCERIN 2% OINT 1 GM PACKET TOP ONE (08:00)
[2017-04-24] MEDS ORDERED: SODIUM CHLORID 0.9% 500 ML INJ 500 ML IV ONE (08:00)
[2017-04-24] MEDS ORDERED: ASPIRIN 81 MG CHEW TAB PO ONE (08:00)
[2017-04-24] MEDS ORDERED: MORPHINE SULFATE 4 MG/ML INJ IV PUSH ONE (08:00)
[2017-04-24] MEDS ORDERED: ALBUTEROL SULFATE 90 MCG/ACT HFA 18 GM INHALER INH PRN (08:30)
[2017-04-24] MEDS ORDERED: NALOXONE HCL 0.4 MG/ML AMP IV PRN (08:45)
[2017-04-24] MEDS ORDERED: ACETAMINOPHEN 325 MG TAB PO PRN ×2 (08:45)
[2017-04-24] MEDS ORDERED: SODIUM CHLORIDE 0.9% FLUSH 10 ML FLUSH IV FLUSH PRN (08:45)
[2017-04-24] MEDS ORDERED: ONDANSETRON HCL 4 MG/2 ML VIAL IVP PRN (08:45)
[2017-04-24] MEDS ORDERED: RIVAROXABAN 20 MG TAB PO SCH (09:00)
[2017-04-24] MEDS: LOSARTAN 25 MG TAB PO SCH (09:56)
[2017-04-24] MEDS: BUDESONIDE-FORMOTEROL 160/4.5 MCG INHALER INH SCH ×2 (09:56→21:15)
[2017-04-24] MEDS: DOCUSATE SODIUM 50 MG/SENNA 8.6 MG TAB PO SCH ×2 (09:56→21:16)
[2017-04-24] MEDS: HEPARIN SODIUM - SQ 10,000 UNITS/ML VIAL SQ SCH ×2 (09:57→17:24)
[2017-04-24] MEDS: SODIUM CHLORIDE 0.9% FLUSH 10 ML FLUSH IV FLUSH SCH ×2 (09:57→21:16)
--- NOTE | 2017-04-24 12:04 | HHI.HP ---
[facility] Judy De La Garza MD Admission Diagnosis NONSTEMI Diagnoses: Chief Complaint: Chest pain Travel History International Travel<30 Days: No Contact w/Intl Traveler <30 Da: No Traveled to Known Affected Are: No History of Present Illness The patient is a 46-year-old male with past medical history of asthma, hypertension and pulmonary embolism who is presenting to the hospital with chest pain. He says yesterday he had some chest pain while standing around the pool. He said he wasn't swimming or anything like that. He said that later on that evening he doesn't eat all of cocaine and started to develop severe, 8 out of 10 chest pain. He described it as a chest pressure on the left side of his chest. He said once chest pain started it did not go away. He did say that it hurt when he took deep breaths. He said he was feeling sweaty during the episode. He decided to drive himself to the hospital. He says his chest pain is slightly improved at this time. He says he has been using drugs because he is going through a divorce and it is very stressful. He also mentions that he quit smoking cigarettes for 2 years but has started smoking about a pack a day again. 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 He mentions he was told he has a hole in his heart. Review of Systems Except as stated in HPI: all other systems reviewed are Neg Past Family Social History Past Medical History PE Hypertension Asthma Chronic renal failure Cavitary lung lesions "Hole in my heart" Past Surgical History Appendectomy for ruptured appendix Allergies: Coded Allergies: Darvocet-N 100 (Verified Allergy, Severe, Lip swelling, 04/24/17) Percocet (Verified Allergy, Severe, Itching, 04/24/17) Active Ordered Medications Current Medications Medications (Trade) Dose Ordered Sig/Saran Route Start Time Stop Time Status Last Admin (Ventolin Hfa Inh) 1 puff Q6H PRN INH 04/24/17 08:30 (Cozaar) 25 mg DAILY PO 04/24/17 09:00 04/24/17 09:56 (Symbicort 160-4.5 Inh) 1 puff BID INH 04/24/17 09:00 04/24/17 09:56 (NS Flush) 2 ml UNSCH PRN IV FLUSH 04/24/17 08:45 (NS Flush) 2 ml BID IV FLUSH 04/24/17 09:00 04/24/17 09:57 (Tylenol) 650 mg Q4H PRN PO 04/24/17 08:45 (Zofran Inj) 4 mg Q6H PRN IVP 04/24/17 08:45 (Heparin Inj) 5,000 units Q8H SQ 04/24/17 09:00 04/24/17 09:57 (Tylenol) 650 mg Q6H PRN PO 04/24/17 08:45 (Narcan Inj) 0.4 mg UNSCH PRN IV 04/24/17 08:45 (Nadine-Colace) 1 tab BID PO 04/24/17 09:00 04/24/17 09:56 (Morphine Inj) 2 mg Q3H PRN IV PUSH 04/24/17 12:00 UNV Family History DM HTN Social History The pt smokes 1 PPD. He does not drink. He uses an 8 ball of cocaine every other week or so. He denies any other drugs. Physical Exam Vital Signs Vital Signs Date Time Temp Pulse Resp B/P Pulse Ox O2 Delivery O2 Flow Rate FiO2 04/24/17 08:30 77 14 142/88 98 04/24/17 07:04 100 20 145/101 98 04/24/17 06:36 86 20 98 04/24/17 06:33 91 20 154/97 98 04/24/17 06:33 98 Nasal Cannula 2 Physical Exam GENERAL: This is a well-nourished, well-developed patient, in no apparent distress. SKIN: No rashes, ecchymoses or lesions. Cool and dry. HEAD: Atraumatic. Normocephalic. No temporal or scalp tenderness. EYES: Pupils equal round and reactive. Extraocular motions intact. No scleral icterus. No injection or drainage. ENT: Nose without bleeding, purulent drainage or septal hematoma. Throat without erythema, tonsillar hypertrophy or exudate. Uvula midline. Airway patent. NECK: Trachea midline. No JVD or lymphadenopathy. Supple, nontender, no meningeal signs. CARDIOVASCULAR: Regular rate and rhythm without murmurs, gallops, or rubs. Reproducible chest pain on exam. RESPIRATORY: Expiratory wheezing noted. GASTROINTESTINAL: Abdomen soft, non-tender, nondistended. No hepato-splenomegaly , or palpable masses. No guarding. MUSCULOSKELETAL: Extremities without clubbing, cyanosis, or edema. No joint tenderness, effusion, or edema noted. NEUROLOGICAL: Awake and alert. Cranial nerves II through XII intact. Motor and sensory grossly within normal limits. Five out of 5 muscle strength in all muscle groups. Normal speech. PSYCH: Mood and affect appropriate. Laboratory Laboratory Tests Test 04/24/17 04/24/17 05:35 05:50 Prothrombin Time 11.0 Prothromb Time International 1.0 Ratio Activated Partial 25.7 Thromboplast Time White Blood Count 13.4 Red Blood Count 4.92 Hemoglobin 15.5 Hematocrit 47.8 Mean Corpuscular Volume 97.2 Mean Corpuscular Hemoglobin 31.5 Mean Corpuscular Hemoglobin 32.4 Concent Red Cell Distribution Width 13.7 Platelet Count 422 Mean Platelet Volume 8.2 Neutrophils (%) (Auto) 75.1 Lymphocytes (%) (Auto) 19.4 Monocytes (%) (Auto) 4.8 Eosinophils (%) (Auto) 0.0 Basophils (%) (Auto) 0.7 Neutrophils # (Auto) 10.1 Lymphocytes # (Auto) 2.6 Monocytes # (Auto) 0.6 Eosinophils # (Auto) 0.0 Basophils # (Auto) 0.1 CBC Comment AUTO DIFF Differential Comment AUTO DIFF CONFIRMED Sodium Level 141 Potassium Level 3.8 Chloride Level 106 Carbon Dioxide Level 23.2 Anion Gap 12 Blood Urea Nitrogen 12 Creatinine 1.40 Estimat Glomerular Filtration 66 Rate Random Glucose 100 Calcium Level 9.5 Magnesium Level 1.8 Total Bilirubin 0.8 Aspartate Amino Transf 15 (AST/SGOT) Alanine Aminotransferase 21 (ALT/SGPT) Alkaline Phosphatase 99 Total Creatine Kinase 259 Creatine Kinase MB 1.8 Troponin I 0.15 Total Protein 8.1 Albumin 4.2 Result Diagram: 04/24/17 0550 04/24/[address] Angiography 04/24/1767 Signed Impressions: Service Date/Time: Monday, April 24, 2017 06:44 - CONCLUSION: 1. Negative for central pulmonary emboli. End Melvin G. Miles, MD FACR Chest X-Ray 04/24/17 0539 Signed Impressions: Service Date/Time: Monday, April 24, 2017 05:45 - CONCLUSION: Normal examination. Max Tracy MD Assessment and Plan Assessment and Plan Chest pain Suspect s/t cocaine use. The pt's troponin is elevated, and is chronically elevated. EKG without acute ischemic changes. CXR and CT chest unremarkable. - continue to monitor EKGs and troponins. - telemetry. - Cocaine and cigarette cessation instruction given. - cardiology consult requested. - echo pending. - morphine as needed for pain. - avoid beta blockers in the setting of cocaine use. Chronic renal failure Creatinine appears at baseline. - avoid nephrotoxic agents and monitor as needed. Leukocytosis May be a stress reaction. CXR unremarkable. - follow CBC. PE Diagnosed in May of last year. He is still on Xarelto but does not take it regularly. Repeat CTA negative for pulmonary embolism. - Hold Xarelto for now. - Oxygen and nebs as needed. Asthma Also likely has COPD with history of smoking. Wheezing noted on exam. Chest x- ray and CTA unremarkable. - Oxygen and nebs as needed. - continue Symbicort. PPx: Heparin Discussed Condition With Pt Ruddy Flynn DO Apr 24, 2017 12:04
[2017-04-24] MEDS: MORPHINE SULFATE 4 MG/ML INJ IV PUSH PRN ×2 (12:45→19:24)
--- NOTE | 2017-04-24 16:12 | EKG ---
Date Performed: 04/24/2017 Time Performed: 05:38:23 PTAGE: 46 years EKG: Sinus rhythm NONSPECIFIC T-WAVE ABNORMALITY BORDERLINE ECG Since PREVIOUS TRACING , no significant change noted PREVIOUS TRACIN12/18/2016 07.56 DOCTOR: Kris Fitzgerald Interpretating Date/Time 04/24/2017 16:12:01
--- NOTE | 2017-04-24 17:02 | MB ---
cc: LIBAN HENDRICKS ALAN S. M.D. DATE OF CONSULTATION: 04/24/2017. REASON FOR CONSULTATION: The patient is 46-year-old black gentleman I am seeing for chest pain and elevated troponin. HISTORY OF PRESENT ILLNESS: I have reviewed numerous hospital records and spoken with the patient. He is not in a very good mood and really does not want to talk. He basically states that yesterday morning he developed a severe aching / pressure in his left parasternal area which is still there and gets worse when he takes a deep breath. He has no other cardiopulmonary symptoms. He did have cocaine just before this and does use cocaine occasionally. PAST MEDICAL HISTORY: 1. Chronic cocaine usage. 2. Hypertension. 3. Asthma. 4. Pulmonary embolism 06/11. 5. Abnormal SPECT nuclear 09/09 with small fixed inferoapical defect with wall motion abnormality and refused catheterization at that time. 6. Cavitary lung lesion. 7. ("Hole in my heart"). 8. Appendectomy. 9. Lung biopsy. 10. Tendon repair, left middle finger. ALLERGIES: 1. DARVOCET. 2. PERCOCET. SOCIAL HISTORY: The patient apparently smokes a pack per day and does use cocaine. Alcohol is rare. MEDICATION LIST: Reviewed. He is very noncompliant with his medicines taking Xarelto intermittently. REVIEW OF SYSTEMS: I did not get a review of systems from him. EKGS: EKG shows sinus rhythm with nonspecific T wave changes. IMAGING STUDIES: CT angiogram is negative for pulmonary embolus. Chest x-ray is normal. LABORATORY DATA: CBC with mildly elevated white count of 13.4. PT and PTT normal. Potassium 3.8, creatinine 1.4. Liver functions normal. Troponins are mildly elevated at 0.15 x2. Of note is the fact that he has mildly elevated troponins almost all the time when he is admitted. PHYSICAL EXAMINATION: GENERAL: On exam, the patient is rolled to the side and really does not want to be compliant with a history or a physical. He is resting comfortably. VITAL SIGNS: Afebrile. The vital signs are stable. SKIN: There are no xanthelasma and oropharyngeal mucosa normal. NECK: JVD normal. CHEST: Clear. CARDIOVASCULAR: S1, S2. No murmurs or gallops. ABDOMEN: Grossly benign. EXTREMITIES: No cyanosis, clubbing or edema. PULSES: Carotids without bruits. Radials 2+. Femorals not felt. Pedals 1 to 2+. NEUROLOGIC: He was not ambulated. PROBLEM LIST: 1. Mildly elevated troponin - this appears to be chronic and is nonspecific, particularly with cocaine use. 2. Pleuritic chest pain with history of PE but negative CT angiogram now. 3. Hypertension. 4. Chronic kidney disease. 5. Cocaine usage. 6. Noncompliance. RECOMMENDATIONS: 1. I have nothing more to add at this point in time. His troponins are nonspecific and always elevated somewhat. This could easily be related to his cocaine usage, which I have counseled him against 2. Substance abstinence. 3. I will leave further management to the primary service. Certainly, given his noncompliance we would not pursue any major invasive cardiac workup as he will likely not be compliant with the medical management required afterwards. I will sign off and be available only this hospital stay. MD AALIYAH Jo/MARGAUX /4:31 PM /4:49 PM
[2017-04-25] VITALS (8 sets, daily range): BP systolic 96–110; BP diastolic 54–71; PULSE 56–64; RESP 11–20; TEMP 97.6–98.1; O2SAT 95–98
[2017-04-25] MEDS: HEPARIN SODIUM - SQ 10,000 UNITS/ML VIAL SQ SCH ×2 (00:51→09:34)
[2017-04-25] MEDS: MORPHINE SULFATE 4 MG/ML INJ IV PUSH PRN (04:34)
[2017-04-25 04:49] LABS: AUTOMATED NEUTROPHIL # 3.6 TH/MM3 (1.8-7.7); BASOPHIL # 0.1 TH/MM3 (0-0.2); BASOPHIL % 1.2 % (0.0-2.0); EOSINOPHIL # 0.3 TH/MM3 (0-0.4); EOSINOPHIL % 3.2 % (0.0-4.0); HEMATOCRIT 50.2 % (39.0-51.0); HEMO FLAGS DIFF FINAL; LYMPH % 46.9 % (9.0-44.0); LYMPHOCYTE # 3.8 TH/MM3 (1.0-4.8); MEAN CELL VOLUME 98.9 FL (80.0-100.0); MEAN CORPUSCULAR HEMOGLOBIN 31.4 PG (27.0-34.0); MEAN CORPUSCULAR HGB CONC 31.7 % (32.0-36.0); MONO % 5.8 % (0.0-8.0); NEUT % 42.9 % (16.0-70.0); PLATELET COUNT 377 TH/MM3 (150-450); RED BLOOD COUNT 5.07 MIL/MM3 (4.50-5.90); RED CELL DISTRIBUTION WIDTH 13.5 % (11.6-17.2); WHITE BLOOD COUNT 8.3 TH/MM3 (4.0-11.0)
[2017-04-25 04:54] LABS: CHLORIDE 104 MEQ/L (98-107); POTASSIUM 3.8 MEQ/L (3.5-5.1); SODIUM (NA) 139 MEQ/L (136-145)
[2017-04-25 04:58] LABS: ANION GAP 7 MEQ/L (5-15); BICARBONATE 27.6 MEQ/L (21.0-32.0); BLOOD UREA NITROGEN 17 MG/DL (7-18)
[2017-04-25 05:01] LABS: ALT (GPT) 21 U/L (12-78); AST (GOT) 13 U/L (15-37); GLOMERULAR FILTRATION RATE 66 ML/MIN (>89)
[2017-04-25 05:03] LABS: TOTAL BILIRUBIN ADULT 1.1 MG/DL (0.2-1.0)
[2017-04-25 05:04] LABS: ALKALINE PHOSPHATASE 103 U/L (45-117)
[2017-04-25] MEDS: LOSARTAN 25 MG TAB PO SCH (09:33)
[2017-04-25] MEDS: DOCUSATE SODIUM 50 MG/SENNA 8.6 MG TAB PO SCH (09:33)
[2017-04-25] MEDS: BUDESONIDE-FORMOTEROL 160/4.5 MCG INHALER INH SCH (09:33)
--- NOTE | 2017-04-25 10:47 | HHI.DCPOC ---
Discharge Care Plan Diagnosis: (1) Cocaine use (2) Chest pain Goals to Promote Your Health * To prevent worsening of your condition and complications * To maintain your health at the optimal level Directions to Meet Your Goals Take your medications as prescribed Follow your dietary instruction Follow activity as directed Keep your appointments as scheduled Take your immunizations and boosters as scheduled If your symptoms worsen call your PCP, if no PCP go to Urgent Care Center or Emergency Room Smoking is Dangerous to Your Health. Avoid second hand smoke Call the 24-hour hour crisis hotline for domestic abuse at Ruddy Flynn DO Apr 25, 2017 10:47
--- NOTE | 2017-04-25 11:04 | HHI.PR ---
Subjective Remarks The patient was sitting up in a chair. His was at the bedside. He had no further complaints at this time. Discussed with nursing. Objective Vitals Vital Signs Date Time Temp Pulse Resp B/P Pulse Ox O2 Delivery O2 Flow Rate FiO2 04/25/17 06:00 60 04/25/17 06:00 60 20 96/61 04/25/17 05:00 60 04/25/17 05:00 60 20 96/54 04/25/17 04:39 16 04/25/17 04:00 58 04/25/17 04:00 97.6 58 20 104/69 98 04/25/17 03:00 64 04/25/17 03:00 64 20 97/59 04/25/17 02:00 56 20 98/59 04/25/17 02:00 56 04/25/17 01:00 64 20 106/58 04/25/17 01:00 64 04/25/17 00:00 97.6 60 20 110/62 95 04/25/17 00:00 60 04/24/17 23:00 66 20 105/57 04/24/17 23:00 66 04/24/17 22:00 62 04/24/17 22:00 62 20 95/56 04/24/17 21:00 70 04/24/17 21:00 70 20 109/59 04/24/17 20:00 94 21 04/24/17 20:00 66 20 110/69 04/24/17 20:00 66 04/24/17 19:00 97.7 72 20 126/86 97 04/24/17 19:00 74 04/24/17 17:00 97.6 66 9 114/67 100 04/24/17 16:00 68 12 99/54 04/24/17 16:00 68 04/24/17 15:00 68 10 111/63 04/24/17 14:00 72 24 128/66 04/24/17 12:00 76 04/24/17 12:00 76 13 142/71 04/24/17 11:30 Nasal Cannula 3.00 04/24/17 11:30 97.3 74 13 127/82 99 04/24/17 11:15 80 11 140/83 I/O 04/24/17 04/24/17 04/24/17 04/25/17 04/25/1704/25/17 07:00 15:00 23:00 07:00 15:00 23:00 Intake Total 650 ml 300 ml 100 ml Output Total 225 ml 0 ml 400 ml Balance 425 ml 300 ml -300 ml Intake Oral 650 ml 300 ml 100 ml IV Total 0 ml 0 ml Output Urine Total 225 ml 0 ml 400 ml Emesis 0 ml 0 ml # Bowel Movements 0 0 Result Diagram: 04/25/17 0425 04/25/[address] Angiography 04/24/1729 Signed Impressions: Service Date/Time: Monday, April 24, 2017 06:44 - CONCLUSION: 1. Negative for central pulmonary emboli. End Melvin Mendez MD FACR Chest X-Ray 04/24/17 0539 Signed Impressions: Service Date/Time: Monday, April 24, 2017 05:45 - CONCLUSION: Normal examination. Max Tracy MD Objective Remarks GENERAL: This is a well-nourished, well-developed patient, in no apparent distress. SKIN: No rashes, ecchymoses or lesions. Cool and dry. HEAD: Atraumatic. Normocephalic. No temporal or scalp tenderness. EYES: Pupils equal round and reactive. Extraocular motions intact. No scleral icterus. No injection or drainage. ENT: Nose without bleeding, purulent drainage or septal hematoma. Throat without erythema, tonsillar hypertrophy or exudate. Uvula midline. Airway patent. NECK: Trachea midline. No JVD or lymphadenopathy. Supple, nontender, no meningeal signs. CARDIOVASCULAR: Regular rate and rhythm without murmurs, gallops, or rubs. Reproducible chest pain on exam. RESPIRATORY: Expiratory wheezing noted. GASTROINTESTINAL: Abdomen soft, non-tender, nondistended. No hepato-splenomegaly , or palpable masses. No guarding. MUSCULOSKELETAL: Extremities without clubbing, cyanosis, or edema. No joint tenderness, effusion, or edema noted. NEUROLOGICAL: Awake and alert. Cranial nerves II through XII intact. Motor and sensory grossly within normal limits. Five out of 5 muscle strength in all muscle groups. Normal speech. PSYCH: Mood and affect appropriate. Medications and IVs Current Medications Medications (Trade) Dose Ordered Sig/Saran Route Start Time Stop Time Status Last Admin (Ventolin Hfa Inh) 1 puff Q6H PRN INH 04/24/17 08:30 (Cozaar) 25 mg DAILY PO 04/24/17 09:00 04/25/17 09:33 (Symbicort 160-4.5 Inh) 1 puff BID INH 04/24/17 09:00 04/25/17 09:33 (NS Flush) 2 ml UNSCH PRN IV FLUSH 04/24/17 08:45 04/24/17 12:45 (NS Flush) 2 ml BID IV FLUSH 04/24/17 09:00 04/24/17 21:16 (Tylenol) 650 mg Q4H PRN PO 04/24/17 08:45 (Zofran Inj) 4 mg Q6H PRN IVP 04/24/17 08:45 (Heparin Inj) 5,000 units Q8H SQ 04/24/17 09:00 04/25/17 09:34 (Tylenol) 650 mg Q6H PRN PO 04/24/17 08:45 (Narcan Inj) 0.4 mg UNSCH PRN IV 04/24/17 08:45 (Nadine-Colace) 1 tab BID PO 04/24/17 09:00 04/25/17 09:33 (Morphine Inj) 2 mg Q3H PRN IV PUSH 04/24/17 12:00 04/25/17 04:34 A/P Assessment and Plan Chest pain Suspect s/t cocaine use. The pt's troponin is elevated, and is chronically elevated. EKG without acute ischemic changes. CXR and CT chest unremarkable. Cardiology consult appreciated. - telemetry. - Cocaine and cigarette cessation instruction given. - cardiology follow up. - echo results pending. The pt will follow up with cardiology. - morphine as needed for pain. - avoid beta blockers in the setting of cocaine use. Chronic renal failure Creatinine appears at baseline. - avoid nephrotoxic agents and monitor as needed. Leukocytosis May be a stress reaction. CXR unremarkable. - follow CBC. Resolved. PE Diagnosed in May of last year. He is still on Xarelto but does not take it regularly. Repeat CTA negative for pulmonary embolism. - resume home meds. - Oxygen and nebs as needed. Asthma Also likely has COPD with history of smoking. Wheezing noted on exam. Chest x- ray and CTA unremarkable. - Oxygen and nebs as needed. - continue Symbicort. PPx: Heparin Discharge Planning Discharge home Ruddy Flynn DO Apr 25, 2017 11:04
--- NOTE | 2017-04-25 14:00 | ECHRPT ---
Indication: chest pain CONCLUSIONS The left ventricular systolic function is severely reduced with an estimated ejection fraction in th e range of 30-35%. There is global left ventricular dysfunction/hypokinesis. Trace mitral valve regurgitation. There is mild tricuspid valve regurgitation. BP: / HR: Rhythm: MEASUREMENTS (Male / Female) Normal Values Technical Quality:Good 2D ECHO LV Diastolic Diameter PLAX 5.3 cm 4.2 - 5.9 / 3.9 - 5.3 cm LV Systolic Diameter PLAX 4.5 cm IVS Diastolic Thickness 1.0 cm 0.6 - 1.0 / 0.6 - 0.9 cm LVPW Diastolic Thickness 0.8 cm 0.6 - 1.0 / 0.6 - 0.9 cm LV Relative Wall Thickness 0.3 RV Internal Dim ED PLAX 3.0 cm M-MODE Aortic Root Diameter MM 3.2 cm LA Systolic Diameter MM 3.8 cm LA Ao Ratio MM 1.2 AV Cusp Separation MM 2.1 cm DOPPLER Mitral E Point Velocity 61.2 cm/s Mitral A Point Velocity 47.4 cm/s Mitral E to A Ratio 1.3 LV E' Lateral Velocity 8.0 cm/s Mitral E to LV E' Lateral Ratio 7.7 LV E' Septal Velocity 8.4 cm/s Mitral E to LV E' Septal Ratio 7.3 FINDINGS LEFT VENTRICLE Normal left ventricular size. Wall thickness is normal. The left ventricular systolic function is severely reduced with an estimated ejection fraction in th e range of 30-35%. There is global left ventricular dysfunction/hypokinesis. RIGHT VENTRICLE Normal right ventricular size LEFT ATRIUM The left atrial size is upper limits of normal. RIGHT ATRIUM The right atrial size is normal. ATRIAL SEPTUM Normal atrial septal thickness without atrial level shunting by limited color doppler interrogation. AORTA The aortic root and proximal ascending aorta are normal in size on limited imaging. MITRAL VALVE Structurally normal mitral valve. Trace mitral valve regurgitation. No mitral valve stenosis. AORTIC VALVE Trileaflet aortic valve. No aortic valve regurgitation. No aortic valve stenosis. TRICUSPID VALVE Structurally normal tricuspid valve. There is mild tricuspid valve regurgitation. PULMONARY VALVE The pulmonary valve is not well visualized. VESSELS The inferior vena cava is normal in size. PERICARDIUM No pericardial effusion. Slim Dunn DO (Electronically Signed) Final Date:25 April 2017 13:59
--- NOTE | 2017-04-25 14:09 | EKG ---
Date Performed: 04/24/2017 Time Performed: 12:42:43 PTAGE: 46 years EKG: Sinus rhythm WITH OCCASIONAL VENTRICULAR PREMATURE COMPLEXES NONSPECIFIC T-WAVE ABNORMALITY Compared to prior tra cing no significant change BORDERLINE ECG PREVIOUS TRACING : 04/24/17@05:28 DOCTOR: Stanley May Interpretating Date/Time 04/25/2017 14:08:00
--- NOTE | 2017-04-25 14:09 | EKG ---
Date Performed: 04/24/2017 Time Performed: 18:09:05 PTAGE: 46 years EKG: Sinus rhythm NONSPECIFIC T-WAVE ABNORMALITY Compared to prior tracing no significant change BORDERLINE ECG PREVIOUS TRACING : 04/24/2017 12.42 DOCTOR: Stanley May Interpretating Date/Time 04/25/2017 14:08:10
== END 2017-04-25 11:20 | disposition home or self-care (01) ==
LOC: PHED 05:33 → UNDOADMOB 07:50 → PHEDA 07:50 → PHICU 11:06 → UNDODISOB 04-25 11:20
PROVIDERS: ADMIT Hospitalist; ATTEND Hospitalist
DX: R07.89 Other chest pain (principal); F14.10 Cocaine abuse, uncomplicated; R06.02 Shortness of breath; D72.829 Elevated white blood cell count, unspecified; I12.9 Hypertensive chronic kidney disease with stage 1 through stage 4 chronic kidney disease, or unspecified chronic kidney disease; N18.9 Chronic kidney disease, unspecified; J45.909 Unspecified asthma, uncomplicated; F17.210 Nicotine dependence, cigarettes, uncomplicated; Z86.711 Personal history of pulmonary embolism
CPT/HCPCS: 71020; 71275; 80053; 82550; 82552; 83735; 84484; 85025; 85610; 85730; 93005; 93306; 99291; G0378; J1644; J2270; J7040; Q9967

== ENCOUNTER 2017-08-08 08:32 | Emergency (ER) | payer MEDICAID ==
[~2017-08-08] VITALS: Ht 175.3 cm; Wt 92.0 kg
[~2017-08-08 08:32] MED LIST changes: -PRED20 PO
[2017-08-08 08:42] VITALS: BP 140/77; PULSE 86; RESP 15; TEMP 97.1; O2SAT 96
[2017-08-08] MEDS ORDERED: PRED20 PO (08:51)
[2017-08-08] MEDS ORDERED: PROPARACAINE HCL 0.5% OPHT SOLN 15 ML BTL LEFT EYE ONE (09:00)
[2017-08-08] MEDS ORDERED: [UNRECOGNIZED DRUG - CODE] EACH EYE (09:16)
[2017-08-08] MEDS ORDERED: ACYC400T PO (09:16)
--- NOTE | 2017-08-08 09:17 | PD ---
HPI Chief Complaint: Eye Problems/Injury Time Seen by Provider: 08:50 Travel History International Travel<30 days: No Contact w/Intl Traveler<30days: No Traveled to known affect area: No History of Present Illness HPI This 47-year-old male says he had irritation of his left eye for the past week. He has photophobia. The eye is tearing a lot. It is crusted in the morning. He says he had similar symptoms 3 years ago. At that time he went to [facility] and was told he had a herpes infection that may recur on him. He was given drops to take but discarded them. PFSH Past Medical History Hx Anticoagulant Therapy: Yes (XARELTO) Arthritis: No Asthma: Yes Autoimmune Disease: No Blood Disorders: No Anxiety: No Depression: No Heart Rhythm Problems: No Cancer: No Cardiovascular Problems: Yes ("HOLE IN HEART") High Cholesterol: No Chemotherapy: No Chest Pain: No Congestive Heart Failure: No COPD: No Cerebrovascular Accident: No Diabetes: No Diminished Hearing: No Endocrine: No Gastrointestinal Disorders: No GERD: No Genitourinary: No Headaches: No Hepatitis: No Hiatal Hernia: No Hypertension: Yes Immune Disorder: No Implanted Vascular Access Dvce: No Musculoskeletal: No Neurologic: No Psychiatric: No Reproductive: No Respiratory: Yes (PULMONARY EMBOLI) Immunizations Current: Yes Migraines: No Radiation Therapy: No Seizures: No Sickle Cell Disease: No Sleep Apnea: No Thyroid Disease: No Ulcer: No Tetanus Vaccination: > 5 Years Influenza Vaccination: Yes PNEUMOCCOCAL Vaccine (Year): 2 Past Surgical History Abdominal Surgery: Yes AICD: No Appendectomy: Yes Arteriovenous Shunt: No Cardiac Surgery: No Ear Surgery: No Eye Surgery: No Genitourinary Surgery: No Insulin Pump: No Joint Replacement: No Oral Surgery: No Pacemaker: No Thoracic Surgery: Yes (LUNG biopsy) Other Surgery: Yes (TENDON REPAIR LEFT MIDDLE FINGER) Social History Alcohol Use: No (RARELY) Tobacco Use: Yes (1 ppd) Substance Use: Yes (admits to 5 year history of cocaine abuse. ) Allergies-Medications (Allergen,Severity, Reaction): Coded Allergies: acetaminophen (Unverified Allergy, Severe, Itching, 08/08/17) oxycodone (Unverified Allergy, Severe, Itching, 08/08/17) propoxyphene (Unverified Allergy, Severe, Lip swelling, 08/08/17) Reported Meds & Prescriptions Reported Meds & Active Scripts Active Reported Prednisone 20 Mg Tab Unknown Dose PO DIRECTED 40 MG twice a day x 3 days, then 20 MG daily x 3 days, then 10 MG daily x 3 days Losartan (Losartan Potassium) 25 Mg Tab 25 Mg PO DAILY Proventil Hfa 6.7 GM Inh (Albuterol Sulfate) 90 Mcg/Act Aer 1 Puff INH Q6H PRN Advair Diskus Inh (Fluticasone-Salmeterol Inh) 250-50 Mcg/Blist Aer 1 Puff INH BID Rinse mouth after use. Review of Systems General / Constitutional: No: Fever, Chills Eyes: Positive: Pain, Tearing, No: Diploplia HENT: No: Headaches, Vertigo Cardiovascular: No: Chest Pain or Discomfort, Palpitations Respiratory: No: Cough, Shortness of Breath Gastrointestinal: No: Nausea, Vomiting Genitourinary: No: Urgency, Frequency Physical Exam Narrative GENERAL: Well-developed male SKIN: Focused skin assessment warm/dry. No lesions suggestive of herpes are noted HEAD: Atraumatic. Normocephalic. EYES: Pupils equal and round. There is conjunctival injection of the left eye. There is no purulent drainage. On forcing staining there is a vertical linear defect as well as a horizontal linear defect at the superior aspect of the cornea suggestive of a dendrite. ENT: No nasal bleeding or discharge. Mucous membranes pink and moist. NECK: Trachea midline. No JVD. GASTROINTESTINAL: Abdomen soft, non-tender, nondistended. Hepatic and splenic margins not palpable. MUSCULOSKELETAL: No obvious deformities. No clubbing. No cyanosis. No edema. NEUROLOGICAL: Awake and alert. No obvious cranial nerve deficits. Motor grossly within normal limits. Normal speech. PSYCHIATRIC: Appropriate mood and affect; insight and judgment normal. Data Data Last Documented VS Vital Signs Date Time Temp Pulse Resp B/P (MAP) Pulse Ox O2 Delivery O2 Flow Rate FiO2 08/08/17 08:42 97.1 86 15 140/77 (98) 96 Orders Orders Proparacaine 0.5% Opth Soln (Alcaine 0.5 (08/08/17 09:00) MDM Medical Decision Making Medical Screen Exam Complete: Yes Emergency Medical Condition: Yes Medical Record Reviewed: Yes Differential Diagnosis Differential includes conjunctivitis, ocular herpes Narrative Course Exam is suggestive of ocular herpes. He'll be started on acyclovir 400 3 times daily as well as Viroptic. The importance of ophthalmology follow up with strength stressed Diagnosis Primary Impression: Ocular herpes Scripts Trifluridine Opth Drops (Viroptic Opth Drops) 1% Soln 1 DROP EACH EYE Q2H for Mgmt Viral Infection for 10 Days, #1 BOTTLE 0 Refills Maximum 9 drops daily Prov: Shan Gasca MD 08/08/17 Acyclovir (Acyclovir) 400 Mg Tab 400 MG PO TID for Mgmt Viral Infection for 7 Days, TAB 0 Refills Prov: Shan Gasca MD 08/08/17 Disposition: 01 DISCHARGE HOME Condition: Stable Shan Gasca MD Aug 08, 2017 09:17
== END 2017-08-08 09:26 | disposition home or self-care (01) ==
LOC: PHED 08:32
DX: B02.30 Zoster ocular disease, unspecified (principal); B00.9 Herpesviral infection, unspecified
CPT/HCPCS: 99284

== ENCOUNTER 2017-09-08 09:31 | Emergency (ER) | payer MEDICAID ==
[~2017-09-08] VITALS: Ht 175.3 cm; Wt 90.5 kg
[~2017-09-08 09:31] MED LIST changes: +ACYC400T PO; +PRED20 PO; -XARE20TA PO; +[UNRECOGNIZED DRUG - CODE] EACH EYE
[2017-09-08 09:38] VITALS: BP 129/65; PULSE 89; RESP 16; TEMP 97.8; O2SAT 98
[2017-09-08] MEDS ORDERED: PRED20 PO (09:52)
[2017-09-08] MEDS ORDERED: OMEP20TA93 PO ×2 (09:52→10:09)
[2017-09-08] MEDS ORDERED: PROPARACAINE HCL 0.5% OPHT SOLN 15 ML BTL LEFT EYE ONE (10:00)
[2017-09-08] MEDS ORDERED: LOSA25TA PO (10:09)
[2017-09-08] MEDS ORDERED: ADVA250A INH (10:09)
[2017-09-08] MEDS ORDERED: ALBU6.7H INH (10:09)
--- NOTE | 2017-09-08 10:10 | PD ---
HPI Chief Complaint: Eye Problems/Injury Time Seen by Provider: 09:43 Travel History International Travel<30 days: No Contact w/Intl Traveler<30days: No Traveled to known affect area: No History of Present Illness HPI This 47-year-old male is complaining of irritation of his left thigh and intermittent visual abnormalities. 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 He was treated and had a good recovery. A month ago he was here with irritation in the eye. It was thought at that time that he hasn't recurrence of the herpes infection and he was put on trifluridine and acyclovir which he says he took. He says the eyes seemed to get better but the last 2 weeks it is been irritated again at times he has blurred vision PFSH Past Medical History Hx Anticoagulant Therapy: Yes (XARELTO) Arthritis: No Asthma: Yes Autoimmune Disease: No Blood Disorders: No Anxiety: No Depression: No Heart Rhythm Problems: No Cancer: No Cardiovascular Problems: Yes ("HOLE IN HEART") High Cholesterol: No Chemotherapy: No Chest Pain: No Congestive Heart Failure: No COPD: No Cerebrovascular Accident: No Diabetes: No Diminished Hearing: No Endocrine: No Gastrointestinal Disorders: No GERD: Yes Genitourinary: No Headaches: No Hepatitis: No Hiatal Hernia: No Hypertension: Yes Immune Disorder: No Implanted Vascular Access Dvce: No Musculoskeletal: No Neurologic: No Psychiatric: No Reproductive: No Respiratory: Yes (PULMONARY EMBOLI) Immunizations Current: Yes Migraines: No Radiation Therapy: No Seizures: No Sickle Cell Disease: No Sleep Apnea: No Thyroid Disease: No Ulcer: No Tetanus Vaccination: > 5 Years Influenza Vaccination: Yes PNEUMOCCOCAL Vaccine (Year): 2 Past Surgical History Abdominal Surgery: Yes AICD: No Appendectomy: Yes Arteriovenous Shunt: No Cardiac Surgery: No Ear Surgery: No Eye Surgery: No Genitourinary Surgery: No Insulin Pump: No Joint Replacement: No Oral Surgery: No Pacemaker: No Thoracic Surgery: Yes (LUNG biopsy) Other Surgery: Yes (TENDON REPAIR LEFT MIDDLE FINGER) Social History Alcohol Use: Yes (RARELY) Tobacco Use: Yes (1 ppd) Substance Use: Yes (admits to 5 year history of cocaine abuse. ) Allergies-Medications (Allergen,Severity, Reaction): Coded Allergies: acetaminophen (Unverified Allergy, Severe, Itching, 09/08/17) oxycodone (Unverified Allergy, Severe, Itching, 09/08/17) propoxyphene (Unverified Allergy, Severe, Lip swelling, 09/08/17) Reported Meds & Prescriptions Reported Meds & Active Scripts Active Reported Omeprazole 20 Mg Tab 20 Mg PO DAILY Prednisone 20 Mg Tab 20 Mg PO DAILY Losartan (Losartan Potassium) 25 Mg Tab 25 Mg PO DAILY Proventil Hfa 6.7 GM Inh (Albuterol Sulfate) 90 Mcg/Act Aer 1 Puff INH Q6H PRN Advair Diskus Inh (Fluticasone-Salmeterol Inh) 250-50 Mcg/Blist Aer 1 Puff INH BID Rinse mouth after use. Review of Systems General / Constitutional: No: Fever, Chills Eyes: Positive: Blurred Vision, Redness, Tearing, Visual changes, No: Diploplia HENT: No: Headaches, Vertigo Cardiovascular: No: Chest Pain or Discomfort, Palpitations Respiratory: No: Cough, Shortness of Breath Gastrointestinal: No: Nausea, Vomiting Genitourinary: No: Urgency, Frequency Musculoskeletal: No: Myalgias Hematologic/Lymphatic: No: Easy Bruising Physical Exam Narrative GENERAL: Well-developed male SKIN: Focused skin assessment warm/dry. HEAD: Atraumatic. Normocephalic. EYES: Pupils equal and round. No scleral icterus. There is conjunctival injection of the left eye. With fluorescein staining there is a small area of uptake the upper portion of the cornea. ENT: No nasal bleeding or discharge. Mucous membranes pink and moist. NECK: Trachea midline. No JVD. CARDIOVASCULAR: Regular rate and rhythm. No murmur appreciated. RESPIRATORY: No accessory muscle use. Clear to auscultation. Breath sounds equal bilaterally. GASTROINTESTINAL: Abdomen soft, non-tender, nondistended. Hepatic and splenic margins not palpable. MUSCULOSKELETAL: No obvious deformities. No clubbing. No cyanosis. No edema. NEUROLOGICAL: Awake and alert. No obvious cranial nerve deficits. Motor grossly within normal limits. Normal speech. PSYCHIATRIC: Appropriate mood and affect; insight and judgment normal. Data Data Last Documented VS Vital Signs Date Time Temp Pulse Resp B/P (MAP) Pulse Ox O2 Delivery O2 Flow Rate FiO2 09/08/17 09:38 97.8 89 16 129/65 (86) 98 Orders Orders Proparacaine 0.5% Opth Soln (Alcaine 0.5 (09/08/17 10:00) MDM Medical Decision Making Medical Screen Exam Complete: Yes Emergency Medical Condition: Yes Medical Record Reviewed: Yes Differential Diagnosis Differential includes conjunctivitis, herpes keratitis Narrative Course This is an ongoing issue and the patient has not been able to see an business systems advisor. I spoke with Dr. Garcia who is on-call today and she has agreed to see the patient in her office. Diagnosis Primary Impression: Keratitis Referrals: Stacie Garcia MD Departure Forms: Tests/Procedures Additional Instructions: Called Dr. Garcia's office today for appointment Scripts Omeprazole (Omeprazole) 20 Mg Tab 20 MG PO DAILY, #30 TAB 0 Refills Prov: Shan Gasca MD 09/08/17 Losartan (Losartan) 25 Mg Tab 25 MG PO DAILY for Blood Pressure Management, #30 TAB 0 Refills Prov: Shan Gasca MD 09/08/17 Albuterol 6.7 GM Inh (Proventil Hfa 6.7 GM Inh) 90 Mcg/Act Aer 1 PUFF INH Q6H Y for SHORTNESS OF BREATH, #1 INHALER 0 Refills Prov: Shan Gasca MD 09/08/17 Fluticasone-Salmeterol Inh (Advair Diskus Inh) 250-50 Mcg/Blist Aer 1 PUFF INH BID, #1 INHALER 0 Refills Rinse mouth after use. Prov: Shan Gasca MD 09/08/17 Disposition: 01 DISCHARGE HOME Condition: Stable Shan Gasca MD Sep 08, 2017 10:10
[2017-09-08] MEDS ORDERED: ACYC800T PO (14:26)
[2017-09-08] MEDS ORDERED: TRIF1SOL3 LEFT EYE (14:26)
== END 2017-09-08 10:23 | disposition home or self-care (01) ==
LOC: PHED 09:31
DX: H16.9 Unspecified keratitis (principal); I10 Essential (primary) hypertension; K21.9 Gastro-esophageal reflux disease without esophagitis; F17.200 Nicotine dependence, unspecified, uncomplicated
CPT/HCPCS: 99284

== ENCOUNTER 2017-11-16 08:31 | Emergency (ER) | payer MEDICAID ==
[~2017-11-16] VITALS: Ht 175.3 cm; Wt 92.4 kg
[~2017-11-16 08:31] MED LIST changes: -ACYC400T PO; +ACYC800T PO; +OMEP20TA93 PO; +TRIF1SOL3 LEFT EYE; -[UNRECOGNIZED DRUG - CODE] EACH EYE
[2017-11-16 08:33] VITALS: BP 123/68; PULSE 81; RESP 16; TEMP 98.3; O2SAT 98
[2017-11-16] MEDS ORDERED: AMLO5TAB2 PO (08:47)
--- NOTE | 2017-11-16 09:01 | PD ---
HPI Chief Complaint: Numbness/Tingling Time Seen by Provider: 08:50 Travel History International Travel<30 days: No Contact w/Intl Traveler<30days: No Traveled to known affect area: No History of Present Illness HPI This 47-year-old male complaining of occasional tingling of his first second and third fingers. He sometimes gets some tingling in the shoulder also. He thinks he had this several years ago and went away without any treatment. It's been going on for 4-5 days. When it does happen it lasts for about 4-5 seconds when it comes and goes. There is no history of trauma. He has no history of neck injury. He has not noted any weakness. There are no symptoms in his legs. He does not have any chest pain. He has a history of hypertension PFSH Past Medical History Hx Anticoagulant Therapy: Yes (XARELTO) Arthritis: No Asthma: Yes Autoimmune Disease: No Blood Disorders: No Anxiety: No Depression: No Heart Rhythm Problems: No Cancer: No Cardiovascular Problems: Yes ("HOLE IN HEART") High Cholesterol: No Chemotherapy: No Chest Pain: No Congestive Heart Failure: No COPD: No Cerebrovascular Accident: No Diabetes: No Diminished Hearing: No Endocrine: No Gastrointestinal Disorders: No GERD: Yes Genitourinary: No Headaches: No Hepatitis: No Hiatal Hernia: No Hypertension: Yes Immune Disorder: No Implanted Vascular Access Dvce: No Musculoskeletal: No Neurologic: No Psychiatric: No Reproductive: No Respiratory: Yes (PULMONARY EMBOLI) Immunizations Current: Yes Migraines: No Radiation Therapy: No Seizures: No Sickle Cell Disease: No Sleep Apnea: No Thyroid Disease: No Ulcer: No Influenza Vaccination: No PNEUMOCCOCAL Vaccine (Year): 2 Past Surgical History Abdominal Surgery: Yes AICD: No Appendectomy: Yes Arteriovenous Shunt: No Cardiac Surgery: No Ear Surgery: No Eye Surgery: No Genitourinary Surgery: No Insulin Pump: No Joint Replacement: No Oral Surgery: No Pacemaker: No Thoracic Surgery: Yes (LUNG biopsy) Other Surgery: Yes (TENDON REPAIR LEFT MIDDLE FINGER) Social History Alcohol Use: No Tobacco Use: No Substance Use: Yes (COCAINE OCC) Allergies-Medications (Allergen,Severity, Reaction): Coded Allergies: acetaminophen (Verified Allergy, Severe, Itching, 11/16/17) oxycodone (Verified Allergy, Severe, Itching, 11/16/17) propoxyphene (Verified Allergy, Severe, Lip swelling, 11/16/17) Reported Meds & Prescriptions Reported Meds & Active Scripts Active Omeprazole 20 Mg Tab 20 Mg PO DAILY Losartan (Losartan Potassium) 25 Mg Tab 25 Mg PO DAILY Proventil Hfa 6.7 GM Inh (Albuterol Sulfate) 90 Mcg/Act Aer 1 Puff INH Q6H PRN Advair Diskus Inh (Fluticasone-Salmeterol Inh) 250-50 Mcg/Blist Aer 1 Puff INH BID Rinse mouth after use. Reported Amlodipine (Amlodipine Besylate) 5 Mg Tab 5 Mg PO DAILY Prednisone 20 Mg Tab 20 Mg PO DAILY Review of Systems Except as stated in HPI: all other systems reviewed are Neg General / Constitutional: No: Fever, Chills Eyes: No: Diploplia HENT: No: Headaches Cardiovascular: No: Chest Pain or Discomfort, Palpitations Respiratory: No: Cough, Shortness of Breath Gastrointestinal: No: Nausea Genitourinary: No: Urgency Musculoskeletal: No: Arthralgias, Weakness Skin: No Rash Neurologic: Positive: Sensory Disturbance Psychiatric: No: Anxiety Endocrine: No: Cold Intolerance Hematologic/Lymphatic: No: Easy Bruising Physical Exam Narrative GENERAL: Well-developed male SKIN: Focused skin assessment warm/dry. HEAD: Atraumatic. Normocephalic. EYES: Pupils equal and round. No scleral icterus. No injection or drainage. ENT: No nasal bleeding or discharge. Mucous membranes pink and moist. NECK: Trachea midline. No JVD. CARDIOVASCULAR: Regular rate and rhythm. No murmur appreciated. RESPIRATORY: No accessory muscle use. Clear to auscultation. Breath sounds equal bilaterally. GASTROINTESTINAL: Abdomen soft, non-tender, nondistended. Hepatic and splenic margins not palpable. MUSCULOSKELETAL: No obvious deformities. No clubbing. No cyanosis. No edema. Full range of motion of the neck and shoulder. No focal tenderness NEUROLOGICAL: Awake and alert. No obvious cranial nerve deficits. Motor grossly within normal limits. Normal speech. 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 Good sensation in the upper extremities. Tinel's and Phalen tests are negative PSYCHIATRIC: Appropriate mood and affect; insight and judgment normal. Data Data Last Documented VS Vital Signs Date Time Temp Pulse Resp B/P (MAP) Pulse Ox O2 Delivery O2 Flow Rate FiO2 11/16/17 08:33 98.3 81 16 123/68 (86) 98 [facility] Medical Decision Making Medical Screen Exam Complete: Yes Emergency Medical Condition: Yes Medical Record Reviewed: Yes Differential Diagnosis Differential includes radiculopathy, neuropathy, carpal tunnel syndrome Narrative Course Patient does not have any focal tenderness or trouble moving. I don't think any imaging would be warranted at this time. The symptoms are intermittent and relatively mild. He has seen a neurologist in the past he thinks for the same issue. I have recommended to him that if the symptoms do not resolve spontaneously he should follow-up with a neurologist. Diagnosis Primary Impression: Radiculopathy affecting upper extremity Additional Instructions: Follow-up with neurology if symptoms persist Disposition: 01 DISCHARGE HOME Condition: Stable Shan Gasca MD Nov 16, 2017 09:01
== END 2017-11-16 09:18 | disposition home or self-care (01) ==
LOC: PHED 08:31
DX: M54.10 Radiculopathy, site unspecified (principal); J45.909 Unspecified asthma, uncomplicated; I10 Essential (primary) hypertension; Z79.01 Long term (current) use of anticoagulants; Z86.711 Personal history of pulmonary embolism; Z88.5 Allergy status to narcotic agent; Z88.8 Allergy status to other drugs, medicaments and biological substances
CPT/HCPCS: 99281

== ENCOUNTER 2018-06-23 00:32 | Inpatient (IN) ==
[2018-06-23] MEDS ORDERED: Nitroglycerin Drip Premix 50 MG/250 ML BOTTLE IV.CONT PRN (00:40)
[2018-06-23 01:05] LABS: Chloride 102 meq/L (98-107); Potassium 3.1 meq/L (3.5-5.1); Sodium 137 meq/L (136-145)
--- NOTE | 2018-06-23 01:05 | XR ---
EXAM DATE: 06/23/2018 12:40 AM EDT AGE/SEX: 48 years / Male INDICATIONS: Chest pain today. CLINICAL DATA: This is the patient's initial encounter. Patient reports that signs and symptoms have been present for 1 day and indicates a pain score of 7/10. MEDICAL/SURGICAL HISTORY: . Cardiovascular disease. Asthma. Hypertension. . Umbilical hernia r epair. Appendectomy.Lung biopsy COMPARISON: [facility], CHEST PA & LAT, 04/24/2017. . FINDINGS: Trace atelectasis both bases. No pleural effusion. No pneumothorax. Heart size stable, within normal limits. CONCLUSION: Minimal bibasilar atelectasis. Otherwise negative. Electronically signed by: Spencer Rodriguez MD 06/23/2018 1:04 AM EDT
[2018-06-23 01:08] LABS: Anion Gap 11 meq/L (5-15); Blood Urea Nitrogen 16 mg/dL (7-18); Calcium 8.5 mg/dL (8.5-10.1); Carbon Dioxide 23.6 meq/L (21.0-32.0); Glucose,Random 112 mg/dL (74-106)
[2018-06-23 01:11] LABS: Alanine Aminotransferase 28 U/L (12-78); Aspartate Aminotransferase 15 U/L (15-37); Glomerular Filtration Rate 52 mL/min (>89)
[2018-06-23 01:13] LABS: Total Protein 8.2 g/dL (6.4-8.2)
[2018-06-23 01:14] LABS: Alkaline Phosphatase 118 U/L (45-117)
[2018-06-23 01:16] LABS: Troponin I 0.11 ng/mL (0.02-0.05)
[2018-06-23 01:24] LABS: INR 1.1 Ratio; Prothrombin Time 10.7 sec (9.8-11.6)
[2018-06-23 01:28] LABS: Baso # (Auto) 0.2 th/mm3 (0.0-0.2); Baso % (Auto) 2.8 % (0.0-2.0); Eos # (Auto) 0.2 th/mm3 (0.0-0.4); Eos % (Auto) 2.6 % (0.0-4.0); Hematocrit 45.9 % (39.0-51.0); Hemoglobin 15.3 gm/dL (13.0-17.0); Lymph # (Auto) 2.3 th/mm3 (1.0-4.8); Lymph % (Auto) 30.5 % (9.0-44.0); Mean Corpuscular HGB Conc 33.2 % (32.0-36.0); Mean Corpuscular Hemoglobin 32.8 pg (27.0-34.0); Mean Corpuscular Volume 98.7 fL (80.0-100.0); Mean Platelet Volume 7.3 fL (7.0-11.0); Mono # (Auto) 0.6 th/mm3 (0.0-0.9); Mono % (Auto) 8.4 % (0.0-8.0); Neut # (Auto) 4.2 th/mm3 (1.8-7.7); Neut % (Auto) 55.7 % (16.0-70.0); Platelet Count 548 th/mm3 (150-450); Red Blood Count 4.65 mil/mm3 (4.50-5.90); Red Cell Distribution Width 12.6 % (11.6-17.2); White Blood Count 7.5 th/mm3 (4.0-11.0)
--- NOTE | 2018-06-23 01:40 | ED ---
HPI General Chief Complaint: Chest Pain Stated Complaint: chest pain/evac Time Seen by Provider: 06/23/18 00:39 Source: patient and EMS Mode of arrival: EMS Limitations: no limitations History of Present Illness HPI narrative: Patient was snorting cocaine 2 hours prior to arrival and he developed substernal chest pain. Rescue ran on them and treated him with aspirin and nitroglycerin x1 prior to arrival. Patient arrived with reduction of chest pain from 10 out of 10 to 7 out of 10. Patient had no shortness of breath or diaphoresis. Patient was admitted for identical symptoms x2 last year. Related Data Home Medications Medication Instructions Recorded Confirmed albuterol sulfate 1 dose INHALATION Q4-6H PRN 03/30/18 06/23/18 amlodipine 10 mg PO DAILY 03/30/18 06/23/18 fluticasone-salmeterol [Advair 1 puff INHALATION BID 03/30/18 06/23/18 Diskus] losartan 25 mg PO DAILY 03/30/18 06/23/18 ranitidine HCl 75 mg PO BID 06/17/18 06/23/18 Previous Rx's Medication Instructions Recorded methocarbamol [Robaxin-750] 750 mg PO Q6H #7 tab 03/31/18 hydrocodone-acetaminophen 1 tab PO Q8H PRN #10 tab 06/17/18 Allergies Allergy/AdvReac Type Severity Reaction Status Date / Time acetaminophen Allergy Severe Itching Verified 06/17/18 17:01 oxycodone Allergy Severe Itching Verified 06/17/18 17:01 propoxyphene Allergy Severe Lip Verified 06/17/18 17:12 swelling Review of Systems ROS: all other systems reviewed are negative [facility] Medical History Medical History Reflux gastritis (Acute) Asthma (Acute) Hypertension (Acute) Cocaine abuse (Acute) Surgical History Surgical History S/P tendon repair (Acute) History of appendectomy (Acute) Family History Family History Other Osteoarthritis Social History Social History Substance History: Active Abuse Second Hand Smoke Exposure: No Smoking Status: Current every day smoker Tobacco Type: Cigarettes How Often Do You Have a Drink Containing Alcohol: Never Substance Abuse Detail Crack/Cocaine: Substance Use Status: Active Route Used Substance Abuse: Inhalation Reason for Use: Get High Immunization History Tetanus Immunization: Unsure Hx Influenza Vaccine This Season: No Exam Narrative Exam Narrative: GENERAL: Alert and oriented in pain with discomfort at 7 out of 10. SKIN: Focused skin assessment warm/dry. HEAD: Atraumatic. Normocephalic. EYES: Pupils equal and round. No scleral icterus. No injection or drainage. ENT: No nasal bleeding or discharge. Mucous membranes pink and moist. NECK: Trachea midline. No JVD. CARDIOVASCULAR: Regular rate and rhythm. No murmur appreciated. RESPIRATORY: No accessory muscle use. Clear to auscultation. Breath sounds equal bilaterally. GASTROINTESTINAL: Abdomen soft, non-tender, nondistended. Hepatic and splenic margins not palpable. MUSCULOSKELETAL: No obvious deformities. No clubbing. No cyanosis. No edema. NEUROLOGICAL: Awake and alert. No obvious cranial nerve deficits. Motor grossly within normal limits. Normal speech. PSYCHIATRIC: Appropriate mood and affect Course Reevaluation(s) Reevaluation #1: Patient still has chest pain at 5 out of 10. No change on physical exam. Titrating up the nitroglycerin to relieve chest pain. Discussed with Dr. Jo and patient is being admitted for cardiac evaluation. Time: 01:41 Initial Documented Vital Signs Pulse Rate 111 H 06/23/18 00:40 Respiratory Rate 20 06/23/18 00:40 Blood Pressure 135/79 06/23/18 00:40 Last Documented Vital Signs Temperature 98.9 F 06/23/18 08:00 Pulse Rate 94 H 06/23/18 11:50 Respiratory Rate 21 06/23/18 11:50 Blood Pressure 124/86 06/23/18 11:50 Pulse Oximetry 95 06/23/18 09:04 Critical Care Time Critical Care Time: Yes Total Critical Care Time: 45 Attestation: Not necessary Medical Decision Making MDM Narrative Medical decision making narrative: Patient has 2 admissions for elevated troponins associated with snorting cocaine each time. Troponin again elevated and patient admitted for cardiac evaluation. Medical Screen Exam Complete: Yes Emergency Medical Condition: Yes Lab Data Result diagrams: 06/23/18 00:45 06/23/18 00:45 Lab Results 06/23/18 06/23/18 06/23/18 Range/Units 00:45 00:45 00:45 CBC w Diff Auto diff final WBC 7.5 (4.0-11.0) th/mm3 RBC 4.65 (4.50-5.90) mil/mm3 Hgb 15.3 (13.0-17.0) gm/dL Hct 45.9 (39.0-51.0) % MCV 98.7 (80.0-100.0) fL MCH 32.8 (27.0-34.0) pg MCHC 33.2 (32.0-36.0) % RDW 12.6 (11.6-17.2) % Plt Count 548 H (150-450) th/mm3 MPV 7.3 (7.0-11.0) fL Neut % (Auto) 55.7 (16.0-70.0) % Lymph % (Auto) 30.5 (9.0-44.0) % Mcdonough % (Auto) 8.4 H (0.0-8.0) % Eos % (Auto) 2.6 (0.0-4.0) % Baso % (Auto) 2.8 H (0.0-2.0) % Neut # (Auto) 4.2 (1.8-7.7) th/mm3 Lymph # (Auto) 2.3 (1.0-4.8) th/mm3 Mcdonough # (Auto) 0.6 (0.0-0.9) th/mm3 Eos # (Auto) 0.2 (0.0-0.4) th/mm3 Baso # (Auto) 0.2 (0.0-0.2) th/mm3 WBC Differential . Differential Comment . PT 10.7 (9.8-11.6) sec INR 1.1 Ratio APTT 26.0 (24.3-30.1) sec Sodium 137 (136-145) meq/L Potassium 3.1 L (3.5-5.1) meq/L Chloride 102 (98-107) meq/L Carbon Dioxide 23.6 (21.0-32.0) meq/L Anion Gap 11 (5-15) meq/L BUN 16 (7-18) mg/dL Creatinine 1.70 H (0.60-1.30) mg/dL Estimated GFR 52 L (>89) mL/min Random Glucose 112 H (74-106) mg/dL Calcium 8.5 (8.5-10.1) mg/dL Total Bilirubin 0.7 (0.2-1.0) mg/dL AST 15 (15-37) U/L ALT 28 (12-78) U/L Alkaline Phosphatase 118 H (45-117) U/L Total Creatine Kinase (39-308) U/L Troponin I 0.11 H (0.02-0.05) ng/mL B-Natriuretic Peptide (0-100) pg/mL Total Protein 8.2 (6.4-8.2) g/dL Albumin 4.0 (3.4-5.0) g/dL Nasal Screen MRSA (PCR) (Negative) Urine Opiates Screen (Neg) Ur Barbiturates Screen (Neg) Ur Amphetamines Screen (Neg) U Benzodiazepines Scrn (Neg) Urine Cocaine Screen (Neg) U Cannabinoids Screen (Neg) 06/23/18 06/23/18 06/23/18 Range/Units 00:45 04:30 07:22 CBC w Diff WBC (4.0-11.0) th/mm3 RBC (4.50-5.90) mil/mm3 Hgb (13.0-17.0) gm/dL Hct (39.0-51.0) % MCV (80.0-100.0) fL MCH (27.0-34.0) pg MCHC (32.0-36.0) % RDW (11.6-17.2) % Plt Count (150-450) th/mm3 MPV (7.0-11.0) fL Neut % (Auto) (16.0-70.0) % Lymph % (Auto) (9.0-44.0) % Mcdonough % (Auto) (0.0-8.0) % Eos % (Auto) (0.0-4.0) % Baso % (Auto) (0.0-2.0) % Neut # (Auto) (1.8-7.7) th/mm3 Lymph # (Auto) (1.0-4.8) th/mm3 Mcdonough # (Auto) (0.0-0.9) th/mm3 Eos # (Auto) (0.0-0.4) th/mm3 Baso # (Auto) (0.0-0.2) th/mm3 WBC Differential Differential Comment PT (9.8-11.6) sec INR Ratio APTT (24.3-30.1) sec Sodium (136-145) meq/L Potassium (3.5-5.1) meq/L Chloride (98-107) meq/L Carbon Dioxide (21.0-32.0) meq/L Anion Gap (5-15) meq/L BUN (7-18) mg/dL Creatinine (0.60-1.30) mg/dL Estimated GFR (>89) mL/min Random Glucose (74-106) mg/dL Calcium (8.5-10.1) mg/dL Total Bilirubin (0.2-1.0) mg/dL AST (15-37) U/L ALT (12-78) U/L Alkaline Phosphatase (45-117) U/L Total Creatine Kinase 228 (39-308) U/L Troponin I 0.11 H (0.02-0.05) ng/mL B-Natriuretic Peptide 22 (0-100) pg/mL Total Protein (6.4-8.2) g/dL Albumin (3.4-5.0) g/dL Nasal Screen MRSA (PCR) Mrsa detected (Negative) Urine Opiates Screen (Neg) Ur Barbiturates Screen (Neg) Ur Amphetamines Screen (Neg) U Benzodiazepines Scrn (Neg) Urine Cocaine Screen (Neg) U Cannabinoids Screen (Neg) 06/23/18 Range/Units 10:14 CBC w Diff WBC (4.0-11.0) th/mm3 RBC (4.50-5.90) mil/mm3 Hgb (13.0-17.0) gm/dL Hct (39.0-51.0) % MCV (80.0-100.0) fL MCH (27.0-34.0) pg MCHC (32.0-36.0) % RDW (11.6-17.2) % Plt Count (150-450) th/mm3 MPV (7.0-11.0) fL Neut % (Auto) (16.0-70.0) % Lymph % (Auto) (9.0-44.0) % Mcdonough % (Auto) (0.0-8.0) % Eos % (Auto) (0.0-4.0) % Baso % (Auto) (0.0-2.0) % Neut # (Auto) (1.8-7.7) th/mm3 Lymph # (Auto) (1.0-4.8) th/mm3 Mcdonough # (Auto) (0.0-0.9) th/mm3 Eos # (Auto) (0.0-0.4) th/mm3 Baso # (Auto) (0.0-0.2) th/mm3 WBC Differential Differential Comment PT (9.8-11.6) sec INR Ratio APTT (24.3-30.1) sec Sodium (136-145) meq/L Potassium (3.5-5.1) meq/L Chloride (98-107) meq/L Carbon Dioxide (21.0-32.0) meq/L Anion Gap (5-15) meq/L BUN (7-18) mg/dL Creatinine (0.60-1.30) mg/dL Estimated GFR (>89) mL/min Random Glucose (74-106) mg/dL Calcium (8.5-10.1) mg/dL Total Bilirubin (0.2-1.0) mg/dL AST (15-37) U/L ALT (12-78) U/L Alkaline Phosphatase (45-117) U/L Total Creatine Kinase (39-308) U/L Troponin I (0.02-0.05) ng/mL B-Natriuretic Peptide (0-100) pg/mL Total Protein (6.4-8.2) g/dL Albumin (3.4-5.0) g/dL Nasal Screen MRSA (PCR) (Negative) Urine Opiates Screen Pos H (Neg) Ur Barbiturates Screen Neg (Neg) Ur Amphetamines Screen Neg (Neg) U Benzodiazepines Scrn Neg (Neg) Urine Cocaine Screen Pos H (Neg) U Cannabinoids Screen Neg (Neg) Imaging Data Radiologist's impression: Chest X-Ray 06/23/18 00:40 CONCLUSION: Minimal bibasilar atelectasis. Otherwise negative. Discharge Plan Discharge Disposition Patient Disposition: 30 Still Patient Discharge Condition Condition: Stable Discharge Order Discharge Orders: Discharge Order (Routine); Ordered 06/23/18 Ordered By: Jairo Diaz Discharge Details Anticipated Discharge Date: 06/23/18 Physicians Team ED Provider: Brian Mireles Attending Provider: Jairo Diaz Status ED Status: Left Department Discharge Information Discharge Date/Time: 06/23/18 03:55
[2018-06-23] MEDS ORDERED: Bisacodyl 10 MG Supp RECTAL PRN (01:42)
[2018-06-23] MEDS ORDERED: Sod Chloride 0.9% Inj 1,000 ML IV.CONT SCH (01:45)
[2018-06-23 08:03] LABS: Troponin I 0.11 ng/mL (0.02-0.05)
[2018-06-23 08:19] VITALS: TEMP 98.9
[2018-06-23] MEDS ORDERED: amLODIPine 10 MG Tablet PO SCH (09:00)
[2018-06-23] MEDS ORDERED: Budesonide-Formoterol 80/4.5 MCG 6.9 GM Inhaler INH SCH (09:00)
[2018-06-23] MEDS ORDERED: Famotidine 20 MG Tablet PO SCH (09:00)
[2018-06-23 09:04] VITALS: O2SAT 95
--- NOTE | 2018-06-23 09:17 | P.DS ---
Date of admission: 06/23/18 02:00 Primary care physician: Mor Mejia Brief History from admission: Mr. Carter is a 48-year-old male. He has a past history of cocaine abuse. He came in secondary to severe chest pain and also had correlated exposure to cocaine before the onset of his chest pain. At baseline his troponin levels are approximately 0.1. His troponin level in the ER was 0.11 and trending toward this morning remains at 0.11. Chest pain has resolved. Patient's feeling back to baseline. No evidence of PA. Medically stable and cleared for discharge to home. Patient recommended to quit cocaine abuse. DS: Diagnosis - Discharge Diagnosis (1) Chest pain Status: Acute (2) Elevated troponin Status: Acute (3) Cocaine abuse Status: Acute DS: Summary Hospital Course: Mr. Carter is a 48-year-old male. He has a past history of cocaine abuse. He came in secondary to severe chest pain and also had correlated exposure to cocaine before the onset of his chest pain. At baseline his troponin levels are approximately 0.1. His troponin level in the ER was 0.11 and trending toward this morning remains at 0.11. Chest pain has resolved. Patient's feeling back to baseline. No evidence of PA. Medically stable and cleared for discharge to home. Patient recommended to quit cocaine abuse. - Time Spent with Patient Total time spent providing and/or coordinating discharge services: Less than 30 minutes - Quality: VTE Deep Vein Thrombosis/Pulmonary Embolism Present on Admission: No Exam Vital signs: Vital Signs 06/23/18 00:40 06/23/18 00:41 06/23/18 00:50 Temperature 98.6 F Pulse Rate 111 H 111 H 110 H Respiratory Rate 20 20 18 Blood Pressure 135/79 142/79 H 119/67 Pulse Oximetry 96 06/23/18 01:09 06/23/18 01:10 06/23/18 01:32 Temperature Pulse Rate 98 H 82 Respiratory Rate 20 20 Blood Pressure 128/83 133/91 H Pulse Oximetry 99 98 06/23/18 01:42 06/23/18 01:55 06/23/18 02:39 Temperature Pulse Rate 90 92 H 88 Respiratory Rate 20 20 20 Blood Pressure 137/79 114/74 117/74 Pulse Oximetry 06/23/18 02:54 06/23/18 03:09 06/23/18 04:00 Temperature Pulse Rate 88 92 H 91 H Respiratory Rate 18 20 Blood Pressure 127/76 118/73 Pulse Oximetry 06/23/18 04:03 06/23/18 04:10 06/23/18 04:15 Temperature 98.8 F Pulse Rate 86 86 84 Respiratory Rate 16 13 12 Blood Pressure 121/79 118/75 118/79 Pulse Oximetry 98 06/23/18 04:30 06/23/18 04:45 06/23/18 05:00 Temperature Pulse Rate 84 86 86 Respiratory Rate 16 14 15 Blood Pressure 101/65 108/62 100/64 Pulse Oximetry 06/23/18 05:15 06/23/18 05:30 06/23/18 05:45 Temperature Pulse Rate 84 82 80 Respiratory Rate 12 14 12 Blood Pressure 117/76 120/68 105/74 Pulse Oximetry 06/23/18 06:00 06/23/18 06:30 06/23/18 06:45 Temperature Pulse Rate 80 82 78 Respiratory Rate 11 L 22 14 Blood Pressure 117/72 137/84 107/69 Pulse Oximetry 06/23/18 07:00 06/23/18 07:15 06/23/18 07:30 Temperature 97.7 F Pulse Rate 78 84 76 Respiratory Rate 14 14 11 L Blood Pressure 109/72 121/78 111/75 Pulse Oximetry 98 06/23/18 07:45 06/23/18 08:00 06/23/18 08:15 Temperature 98.9 F Pulse Rate 76 74 74 Respiratory Rate 10 L 15 11 L Blood Pressure 119/73 99/61 L 89/54 L Pulse Oximetry 98 06/23/18 08:30 06/23/18 09:00 06/23/18 09:04 Temperature Pulse Rate 72 74 Respiratory Rate 9 L 9 L Blood Pressure 103/62 119/71 Pulse Oximetry 96 95 Intake & Output 06/22/18 06/23/18 06/23/18 18:59 06:59 18:59 Intake Total 0 / 0 Output Total 0 / 0 Balance 0 / 0 Weight 89 kg 88.9 kg Intake: Oral 0 / 0 Output: Urine 0 / 0 Other: Weight On Admission 89 kg Results Procedures completed during hospitalization: None Labs on day of discharge: Labs from last 24 hours 06/23/18 06/23/18 06/23/18 07:22 04:30 00:45 CBC w Diff WBC RBC Hgb Hct MCV MCH MCHC RDW Plt Count MPV Neut % (Auto) Lymph % (Auto) [place] % (Auto) Eos % (Auto) Baso % (Auto) Neut # (Auto) Lymph # (Auto) [place] # (Auto) Eos # (Auto) Baso # (Auto) WBC Differential Differential Comment PT INR APTT Sodium Potassium Chloride Carbon Dioxide Anion Gap BUN Creatinine Estimated GFR Random Glucose Calcium Total Bilirubin AST ALT Alkaline Phosphatase Total Creatine Kinase 228 Troponin I 0.11 H B-Natriuretic Peptide 22 Total Protein Albumin Nasal Screen MRSA (PCR) Pending 06/23/18 06/23/18 06/23/18 00:45 00:45 00:45 CBC w Diff Auto diff final WBC 7.5 RBC 4.65 Hgb 15.3 Hct 45.9 MCV 98.7 MCH 32.8 MCHC 33.2 RDW 12.6 Plt Count 548 H MPV 7.3 Neut % (Auto) 55.7 Lymph % (Auto) 30.5 [place] % (Auto) 8.4 H Eos % (Auto) 2.6 Baso % (Auto) 2.8 H Neut # (Auto) 4.2 Lymph # (Auto) 2.3 [place] # (Auto) 0.6 Eos # (Auto) 0.2 Baso # (Auto) 0.2 WBC Differential . Differential Comment . PT 10.7 INR 1.1 APTT 26.0 Sodium 137 Potassium 3.1 L Chloride 102 Carbon Dioxide 23.6 Anion Gap 11 BUN 16 Creatinine 1.70 H Estimated GFR 52 L Random Glucose 112 H Calcium 8.5 Total Bilirubin 0.7 AST 15 ALT 28 Alkaline Phosphatase 118 H Total Creatine Kinase Troponin I 0.11 H B-Natriuretic Peptide Total Protein 8.2 Albumin 4.0 Nasal Screen MRSA (PCR) - Impressions ITS Impressions Chest X-Ray 06/23/18 00:40 CONCLUSION: Minimal bibasilar atelectasis. Otherwise negative. Discharge Plan - Discharge Disposition Patient Disposition: 01 Discharge Home - Discharge Condition Condition: Stable - Discharge Order Discharge Orders: Discharge Order (Routine); Ordered 06/23/18 Ordered By: Jairo Diaz - Discharge Details Anticipated Discharge Date: 06/23/18 - Physicians Team Attending Provider: Jairo Diaz
--- NOTE | 2018-06-23 09:17 | P.HPIM ---
History of Present Illness Primary Care Physician: Mor Mejia History of Present Illness: Mr. Carter is a 48-year-old male. He has a past history of cocaine abuse. He came in secondary to severe chest pain and also had correlated exposure to cocaine before the onset of his chest pain. At baseline his troponin levels are approximately 0.1. His troponin level in the ER was 0.11 and trending toward this morning remains at 0.11. Chest pain has resolved. Patient's feeling back to baseline. No evidence of OR. Medically stable and cleared for discharge to home. Patient recommended to quit cocaine abuse. - Diagnosis (1) Chest pain (2) Elevated troponin (3) Cocaine abuse Inpatient Certification: I certify that the inpatient services were ordered in accordance with Medicare regulations governing the order. This includes certification that hospital inpatient services are reasonable and necessary and in the case of services not specified as inpatient-only under 42 CFR 419.22(n), that they are appropriately provided as inpatient services in accordance to with the 2-midnight benchmark under 43 CFR 412.3(e) Estimated Total Length of Stay (Days): 2 Plans for Post Hospital Care: Home Review of Systems Constitutional: No fevers, no chills no night sweats, no fatigue, no weakness Eyes: No eye pain, no blurry vision, no loss of vision ENT: No sore throat, no ear pain, no rhinorrhea Cardiovascular: chest pain (resolved), no tachycardia, no palpitations, no shortness of breath, no syncope Respiratory: No wheezing, no cough, no shortness of breath Gastrointestinal: No abdominal pain, no black tarry stools, no bright red blood per rectum, no vomiting, no diarrhea Musculoskeletal: No joint pain, no muscle cramps, no stiffness Integumentary: No rash, no ulcers, no drainage Neurologic: No sensory loss, no loss of motor function, no dizziness Psychiatric: No behavioral changes, no hallucinations, no suicidal ideations PMF - History History Provided By: Patient - Medical History Medical History: Medical History (Last Updated 06/23/18 @ 09:14 by Jairo Diaz MD) Reflux gastritis (Acute) Asthma (Acute) Hypertension (Acute) Cocaine abuse - Surgical History Surgical History: Surgical History (Last Reviewed 06/23/18 @ 01:36 by Brian Mireles MD) S/P tendon repair (Acute) History of appendectomy (Acute) - Family History Family History: Family History (Last Updated 06/23/18 @ 09:14 by Jairo Diaz MD) Other Osteoarthritis - Tobacco History Second Hand Smoke Exposure: No Tobacco Use In Past 30 Days: Yes Smoking Status: Current every day smoker Tobacco Type: Cigarettes - Alcohol History How Often Do You Have a Drink Containing Alcohol: Never - Substance Use History Substance History: Active Abuse - Substance Use Type Crack/Cocaine Status: Active Route Used: Inhalation Reason for Use: Feels Good, Get High - Immunization History Tetanus Immunization: Unsure Hx Influenza Vaccine This Season: No Medications and Allergies Active Medications: Active Medications Al Hydroxide/Mg Hydroxide (Milk Of Magnesia Liq) 30 ml PO Q12H PRN PRN Reason: Mild Constipation Amlodipine Besylate (Norvasc) 10 mg PO DAILY [facility] Last Admin: 06/23/18 09:05 Dose: 10 mg Aspirin (Ecotrin) 81 mg PO DAILY [facility] Last Admin: 06/23/18 09:05 Dose: 81 mg Bisacodyl (Dulcolax Supp) 10 mg RECTAL DAILY PRN PRN Reason: SEVERE CONSITIPATION Budesonide/Formoterol Fumarate (Symbicort 80/4.5 Mcg Inh) 2 puff INH BID [facility] Chlorhexidine Gluconate (Chlorhexidine 2% Cloth) 3 pack TOPICAL DAILY@0400 PRN PRN Reason: Extra cloth needed Stop: 06/29/18 03:59 Chlorhexidine Gluconate (Chlorhexidine 2% Cloth) 3 pack TOPICAL DAILY@0400 [facility] Stop: 06/29/18 03:59 Famotidine (Pepcid) 20 mg PO BID [facility] Last Admin: 06/23/18 09:05 Dose: 20 mg Nitroglycerin/Dextrose (Nitroglycerin Drip Premix) 50 mg in 250 mls @ 1.5 mls/ hr IV.CONT TITRATE PRN; Protocol PRN Reason: See Protocol Last Titration: 06/23/18 08:19 Dose: 0 mcg/min, 0 mls/hr Sodium Chloride (Ns Inj) 1,000 mls @ 100 mls/hr IV.CONT .Q10H [facility] Last Admin: 06/23/18 03:06 Dose: 100 mls/hr Lactulose (Lactulose Liq) 30 ml PO DAILY PRN PRN Reason: SEVERE CONSITIPATION Losartan Potassium (Cozaar) 25 mg PO DAILY [facility] Last Admin: 06/23/18 09:05 Dose: 25 mg Sennosides (Senokot) 17.2 mg PO Q12H PRN PRN Reason: Moderate Constipation Sodium Chloride (Ns Flush) 2 ml IV.FLUSH UNSCH PRN PRN Reason: FLUSH AFTER USING IV ACCESS Allergies Allergy/AdvReac Type Severity Reaction Status Date / Time acetaminophen Allergy Severe Itching Verified 06/17/18 17:01 oxycodone Allergy Severe Itching Verified 06/17/18 17:01 propoxyphene Allergy Severe Lip Verified 06/17/18 17:12 swelling Home Medications Medication Instructions Recorded Confirmed Type albuterol sulfate 1 dose INHALATION Q4-6H PRN 03/30/18 06/23/18 History amlodipine 10 mg PO DAILY 03/30/18 06/23/18 History fluticasone-salmeterol [Advair 1 puff INHALATION BID 03/30/18 06/23/18 History Diskus] losartan 25 mg PO DAILY 03/30/18 06/23/18 History ranitidine HCl 75 mg PO BID 06/17/18 06/23/18 History Exam Vital signs: Vital Signs 06/23/18 00:40 06/23/18 00:41 06/23/18 00:50 Temperature 98.6 F Pulse Rate 111 H 111 H 110 H Respiratory Rate 20 20 18 Blood Pressure 135/79 142/79 H 119/67 Pulse Oximetry 96 06/23/18 01:09 06/23/18 01:10 06/23/18 01:32 Temperature Pulse Rate 98 H 82 Respiratory Rate 20 20 Blood Pressure 128/83 133/91 H Pulse Oximetry 99 98 06/23/18 01:42 06/23/18 01:55 06/23/18 02:39 Temperature Pulse Rate 90 92 H 88 Respiratory Rate 20 20 20 Blood Pressure 137/79 114/74 117/74 Pulse Oximetry 06/23/18 02:54 06/23/18 03:09 06/23/18 04:00 Temperature Pulse Rate 88 92 H 91 H Respiratory Rate 18 20 Blood Pressure 127/76 118/73 Pulse Oximetry 06/23/18 04:03 06/23/18 04:10 06/23/18 04:15 Temperature 98.8 F Pulse Rate 86 86 84 Respiratory Rate 16 13 12 Blood Pressure 121/79 118/75 118/79 Pulse Oximetry 98 06/23/18 04:30 06/23/18 04:45 06/23/18 05:00 Temperature Pulse Rate 84 86 86 Respiratory Rate 16 14 15 Blood Pressure 101/65 108/62 100/64 Pulse Oximetry 06/23/18 05:15 06/23/18 05:30 06/23/18 05:45 Temperature Pulse Rate 84 82 80 Respiratory Rate 12 14 12 Blood Pressure 117/76 120/68 105/74 Pulse Oximetry 06/23/18 06:00 06/23/18 06:30 06/23/18 06:45 Temperature Pulse Rate 80 82 78 Respiratory Rate 11 L 22 14 Blood Pressure 117/72 137/84 107/69 Pulse Oximetry 06/23/18 07:00 06/23/18 07:15 06/23/18 07:30 Temperature 97.7 F Pulse Rate 78 84 76 Respiratory Rate 14 14 11 L Blood Pressure 109/72 121/78 111/75 Pulse Oximetry 98 06/23/18 07:45 06/23/18 08:00 06/23/18 08:15 Temperature 98.9 F Pulse Rate 76 74 74 Respiratory Rate 10 L 15 11 L Blood Pressure 119/73 99/61 L 89/54 L Pulse Oximetry 98 06/23/18 08:30 06/23/18 09:00 06/23/18 09:04 Temperature Pulse Rate 72 74 Respiratory Rate 9 L 9 L Blood Pressure 103/62 119/71 Pulse Oximetry 96 95 Intake & Output 06/22/18 06/23/18 06/23/18 18:59 06:59 18:59 Intake Total 0 / 0 Output Total 0 / 0 Balance 0 / 0 Weight 89 kg 88.9 kg Intake: Oral 0 / 0 Output: Urine 0 / 0 Other: Weight On Admission 89 kg Narrative: GENERAL: NAD, A&Ox3 HEAD: Normocephalic. NECK: Supple, trachea midline. No lymphadenopathy. EYES: No scleral icterus. No injection or drainage. CARDIOVASCULAR: Regular rate and rhythm without murmurs, gallops, or rubs. RESPIRATORY: Breath sounds equal bilaterally. No accessory muscle use. GASTROINTESTINAL: Abdomen soft, non-tender, nondistended. MUSCULOSKELETAL: No cyanosis, or edema. SKIN: Warm and dry. NEURO: No focal neurological deficits. Results - Labs CBC & Chem 7: 06/23/18 00:45 06/23/18 00:45 Labs: Short CBC 06/23/18 Range/Units 00:45 WBC 7.5 (4.0-11.0) th/mm3 Hgb 15.3 (13.0-17.0) gm/dL Hct 45.9 (39.0-51.0) % Plt Count 548 H (150-450) th/mm3 BMP 06/23/18 00:45 Sodium 137 Potassium 3.1 L Chloride 102 Carbon Dioxide 23.6 BUN 16 Creatinine 1.70 H Calcium 8.5 Cardiac Enzymes 06/23/18 06/23/18 Range/Units 00:45 07:22 Total Creatine Kinase 228 (39-308) U/L Troponin I 0.11 H 0.11 H (0.02-0.05) ng/mL Liver Function 06/23/18 Range/Units 00:45 Total Bilirubin 0.7 (0.2-1.0) mg/dL AST 15 (15-37) U/L ALT 28 (12-78) U/L Alkaline Phosphatase 118 H (45-117) U/L Albumin 4.0 (3.4-5.0) g/dL - Imaging Impressions Chest X-Ray 06/23/18 00:40 CONCLUSION: Minimal bibasilar atelectasis. Otherwise negative. Caprini VTE Risk Assessment Caprini VTE Risk Assessment: No/Low Risk (score <= 1) Caprini Risk Assessment Model: Point Value = 1 Point Value = 2 Point Value = 3 Point Value = 5 Age 41-60 Minor surgery BMI > 25 kg/m2 Swollen legs Varicose veins or History of unexplained or recurrent spontaneous Oral contraceptives or hormone replacement Sepsis (< 1 month) Serious lung disease, including pneumonia (< 1 month) Abnormal pulmonary function Acute myocardial infarction Congestive heart failure (< 1 month) History of inflammatory bowel disease Medical patient at bed rest Age 61-74 Arthroscopic surgery Major open surgery (> 45 min) Laparoscopic surgery (> 45 min) Malignancy Confined to bed (> 72 hours) Immobilizing plaster cast Central venous access Age >= 75 History of VTE Family history of VTE Factor V Leiden Prothrombin [id number] Lupus anticoagulant Anticardiolipin antibodies Elevated serum homocysteine Heparin-induced thrombocytopenia Other congenital or acquired thrombophilia Stroke (< 1 month) Elective arthroplasty Hip, pelvis, or leg fracture Acute spinal cord injury (< 1 month) Prophylaxis Regimen: Total Risk Factor Score Risk Level Prophylaxis Regimen 0-1 Low Early ambulation 2 Moderate Order ONE of the following: *Sequential Compression Device (SCD) *Heparin 5000 units SQ BID 3-4 Higher Order ONE of the following medications: *Heparin 5000 units SQ TID *Enoxaparin/Lovenox 40 mg SQ daily (WT < 150 kg, CrCl > 30 mL/min) *Enoxaparin/Lovenox 30 mg SQ daily (WT < 150 kg, CrCl > 10-29 mL/min) *Enoxaparin/Lovenox 30 mg SQ BID (WT < 150 kg, CrCl > 30 mL/min) AND/OR *Sequential Compression Device (SCD) 5 or more Highest Order ONE of the following medications: *Heparin 5000 units SQ TID (Preferred with Epidurals) *Enoxaparin/Lovenox 40 mg SQ daily (WT < 150 kg, CrCl > 30 mL/min) *Enoxaparin/Lovenox 30 mg SQ daily (WT < 150 kg, CrCl > 10-29 mL/min) *Enoxaparin/Lovenox 30 mg SQ BID (WT < 150 kg, CrCl > 30 mL/min) AND *Sequential Compression Device (SCD) Assessment and Plan - Assessment (1) Chest pain Code(s): R07.9 - Chest pain, unspecified Status: Acute (2) Elevated troponin Code(s): R74.8 - Abnormal levels of other serum enzymes Status: Acute (3) Cocaine abuse Code(s): F14.10 - Cocaine abuse, uncomplicated Status: Acute - Plan 48-year-old male admitted secondary to chest pain related to cocaine abuse Chest pain Elevated troponin Cocaine abuse Chest Pain resolved Evaluated for ACS Followed cardiac enzymes, levels are stable and at chronically elevated level range Aspirin daily DVT prophylaxis SCDs H&P: Quality - VTE Deep Vein Thrombosis/Pulmonary Embolism Present on Admission: No
[2018-06-23 10:48] LABS: Amphetamine Screen,Urine Neg (Neg)
[2018-06-23 10:49] LABS: Barbiturate Screen,Urine Neg (Neg)
[2018-06-23 10:52] LABS: Cannabinoid Screen,Urine Neg (Neg); Cocaine Screen,Urine Pos (Neg)
[2018-06-23 10:56] LABS: Opiate Screen,Urine Pos (Neg)
[2018-06-23 11:41] VITALS: PULSE 94
[2018-06-23 12:16] VITALS: BP 124/86; RESP 21
--- NOTE | 2018-06-23 15:18 | ECG ---
Date Performed: 06/23/2018 Time Performed: 00:54:11 PTAGE: 48 years EKG: SINUS TACHYCARDIA NONSPECIFIC T-WAVE ABNORMALITY ABNORMAL RHYTHM ECG Since the PREVIOUS TRACING , no significant change noted PREVIOUS TRACIN04/24/2017 18.09 DOCTOR: Elisabet Contreras Interpretating Date/Time 06/23/2018 15:14:35
--- NOTE | 2018-06-23 15:18 | ECG ---
Date Performed: 06/23/2018 Time Performed: 02:30:47 PTAGE: 48 years EKG: Sinus rhythm NONSPECIFIC T-WAVE ABNORMALITY BORDERLINE ECG Since the PREVIOUS TRACING , no significant change noted PREVIOUS TRACIN06/23/2018 00.54 DOCTOR: Elisabet Contreras Interpretating Date/Time 06/23/2018 15:14:26
[2018-06-24] MEDS ORDERED: Chlorhexidine Gluconate 2% 1 Pack (2 Cloths) TOPICAL SCH (04:00)
[2018-06-24] MEDS ORDERED: Chlorhexidine Gluconate 2% 1 Pack (2 Cloths) TOPICAL PRN (04:00)
== END 2018-06-23 12:10 | disposition home or self-care (01) ==
LOC: PHED 00:32 → PHEDA 00:32 → PHICU 03:55
PROVIDERS: ADMIT Hospitalist; ATTEND Hospitalist